=== PATIENT | male | born 1955 | race American Indian/Alaskan Native ===

== ENCOUNTER 2017-01-04 04:56 | Inpatient (IN) | payer OTHER ==
[2017-01-04] MEDS ORDERED: NACL 0.9% 1000 ML 1,000 ML IV ONE (07:16)
--- NOTE | 2017-01-04 07:17 | Emergency Department Report ---
ED General Adult HPI - General Chief complaint: Altered Mental Status Stated complaint: LOW BLOOD PRESSURE/ALTERED MENTAL STATUS Time Seen by Provider: 01/04/17 06:53 Source: family, EMS (ems notes not available at time of chart dictation), old records reviewed Mode of arrival: Stretcher Limitations: Altered Mental Status - History of Present Illness Initial comments: This is a 61-year-old male, who was previously unknown to this provider. His primary care doctor is Dr. Jesus Ewing, and his primary telephone surveyor is at [facility]. His history is provided by his . Patient has a history of atrial fibrillation, currently on systemic anticoagulation, xarelto, history of intracranial hemorrhage, with a SPECIAL INVESTIGATOR shunt, now neurologically impaired, trach dependent, feeding tube dependent. The patient is sent to the ER for weakness, and coughing up blood from his tracheostomy site. His reports that he is dependent on others for activities of daily living. The patient is nonverbal and cannot describe exacerbating or relieving factors. Patient's reports that the patient is more tired, lethargic and weaker than usual. Symptoms do not radiate anywhere. -: Gradual Consistency: constant Improves with: none Worsens with: none Associated Symptoms: confusion, cough, weakness - Related Data Home Medications Medication Instructions Recorded Confirmed Last Taken Acetaminophen [Tylenol Extra 500 mg FEEDTUBE QID PRN 01/04/17 01/04/17 Unknown Strength] Amantadine HCl [Amantadine] 150 mg FEEDTUBE BID 01/04/17 01/04/17 Unknown Aspirin BABY CHEW TAB 81 mg FEEDTUBE DAILY 01/04/17 01/04/17 Unknown Budesonide [Pulmicort] 0.5 mg IH Q12HR 01/04/17 01/04/17 Unknown Cetirizine HCl [All Day Allergy] 10 mg FEEDTUBE DAILY 01/04/17 01/04/17 Unknown Digoxin [Lanoxin] 0.25 mg FEEDTUBE DAILY 01/04/17 01/04/17 Unknown Diltiazem [CarDIZEM] 30 mg FEEDTUBE DAILY 01/04/17 01/04/17 Unknown FLUoxetine [PROzac] 20 mg FEEDTUBE QDAY 01/04/17 01/04/17 Unknown Ferrous Sulfate 7.5 ml FEEDTUBE BID 01/04/17 01/04/17 Unknown Hyoscyamine Sulfate [Hyoscyamine 0.125 mg FEEDTUBE Q4H PRN 01/04/17 01/04/17 Unknown Rapdis 0.125 mg] Insulin Aspart [Novolog Flexpen] 0 unit SQ BID 01/04/17 01/04/17 Unknown Insulin Detemir [Levemir] 5 units SUB-Q QHS 01/04/17 01/04/17 Unknown Ipratropium/Albuterol Sulfate 1 ampul IH Q4HR 01/04/17 01/04/17 Unknown [DUONEB *Not for PRN Use*] LORazepam [Ativan] 1 mg FEEDTUBE BID PRN 01/04/17 01/04/17 Unknown Metoprolol [Lopressor] 25 mg FEEDTUBE BID 01/04/17 01/04/17 Unknown Ondansetron [Zofran Oral Liq] 4 mg FEEDTUBE Q6HR PRN 01/04/17 01/04/17 Unknown Pantoprazole Sodium 40 mg FEEDTUBE DAILY 01/04/17 01/04/17 Unknown Rivaroxaban [Xarelto] 20 mg FEEDTUBE QHS 01/04/17 01/04/17 Unknown guaiFENesin [Guaifenesin] 100 mg FEEDTUBE BID PRN 01/04/17 01/04/17 Unknown traZODone [Desyrel] 25 mg FEEDTUBE QHS 01/04/17 01/04/17 Unknown Allergies Allergy/AdvReac Type Severity Reaction Status Date / Time latex Allergy Unknown Verified 01/04/17 09:05 Penicillins Allergy Unknown Verified 01/04/17 09:05 vancomycin Allergy Unknown Verified 01/04/17 09:05 ED Review of Systems ROS: Stated complaint: LOW BLOOD PRESSURE/ALTERED MENTAL STATUS Other details as noted in HPI Comment: Unobtainable due to pts medical conditions Constitutional: malaise, weakness ED Past Medical Hx - Past Medical History Previous Medical History?: Yes Hx Hypertension: Yes Hx Diabetes: Yes Hx GERD: Yes Hx Psychiatric Treatment: Yes (persistent mood disorder, anxiety) Additional medical history: encephalopathy, parkinson's disease, xenogenic heart valve, endocarditis, pressure ulcer, hyperlipidemia, atrial fib, alcohol abuse, anemia - Surgical History Past Surgical History?: Yes Additional Surgical History: ICH - Social History Smoking Status: Former Smoker Substance Use Type: None - Medications Home Medications: Home Medications Medication Instructions Recorded Confirmed Last Taken Type Acetaminophen [Tylenol Extra 500 mg FEEDTUBE QID PRN 01/04/17 01/04/17 Unknown History Strength] Amantadine HCl [Amantadine] 150 mg FEEDTUBE BID 01/04/17 01/04/17 Unknown History Aspirin BABY CHEW TAB 81 mg FEEDTUBE DAILY 01/04/17 01/04/17 Unknown History Budesonide [Pulmicort] 0.5 mg IH Q12HR 01/04/17 01/04/17 Unknown History Cetirizine HCl [All Day Allergy] 10 mg FEEDTUBE DAILY 01/04/17 01/04/17 Unknown History Digoxin [Lanoxin] 0.25 mg FEEDTUBE DAILY 01/04/17 01/04/17 Unknown History Diltiazem [CarDIZEM] 30 mg FEEDTUBE DAILY 01/04/17 01/04/17 Unknown History FLUoxetine [PROzac] 20 mg FEEDTUBE QDAY 01/04/17 01/04/17 Unknown History Ferrous Sulfate 7.5 ml FEEDTUBE BID 01/04/17 01/04/17 Unknown History Hyoscyamine Sulfate [Hyoscyamine 0.125 mg FEEDTUBE Q4H PRN 01/04/17 01/04/17 Unknown History Rapdis 0.125 mg] Insulin Aspart [Novolog Flexpen] 0 unit SQ BID 01/04/17 01/04/17 Unknown History Insulin Detemir [Levemir] 5 units SUB-Q QHS 01/04/17 01/04/17 Unknown History Ipratropium/Albuterol Sulfate 1 ampul IH Q4HR 01/04/17 01/04/17 Unknown History [DUONEB *Not for PRN Use*] LORazepam [Ativan] 1 mg FEEDTUBE BID PRN 01/04/17 01/04/17 Unknown History Metoprolol [Lopressor] 25 mg FEEDTUBE BID 01/04/17 01/04/17 Unknown History Ondansetron [Zofran Oral Liq] 4 mg FEEDTUBE Q6HR PRN 01/04/17 01/04/17 Unknown History Pantoprazole Sodium 40 mg FEEDTUBE DAILY 01/04/17 01/04/17 Unknown History Rivaroxaban [Xarelto] 20 mg FEEDTUBE QHS 01/04/17 01/04/17 Unknown History guaiFENesin [Guaifenesin] 100 mg FEEDTUBE BID PRN 01/04/17 01/04/17 Unknown History traZODone [Desyrel] 25 mg FEEDTUBE QHS 01/04/17 01/04/17 Unknown History ED Physical Exam - General Limitations: Altered Mental Status General appearance: in no apparent distress - Head Head exam: Present: atraumatic, normocephalic - Eye Eye exam: Present: normal appearance, PERRL - ENT ENT exam: Present: mucous membranes dry, other (there is a tracheostomy stoma noted with a tracheostomy tube. There is dried blood around the tube. The stoma itself has no redness, pus or streaking.) - Neck Neck exam: Present: normal inspection - Respiratory Respiratory exam: Present: rhonchi. Absent: respiratory distress - Cardiovascular Cardiovascular Exam: Present: regular rate, normal rhythm, irregular rhythm, systolic murmur. Absent: normal heart sounds, diastolic murmur, rubs, gallop - GI/Abdominal GI/Abdominal exam: Present: soft, normal bowel sounds, other (there is a feeding tube noted in the left lower quadrant). Absent: distended, tenderness, guarding, rebound, rigid, pulsatile mass - Rectal Rectal exam: Present: normal rectal tone, heme (+) stool, bloody stool. Absent : normal inspection (there is stage II skin ulcer and skin breakdown) - Extremities Exam Extremities exam: Present: normal inspection, pedal edema - Back Exam Back exam: Present: normal inspection. Absent: tenderness, CVA tenderness (R), paraspinal tenderness - Neurological Exam Neurological exam: Present: altered, other (she is sleeping. Occasionally he moves his arms. The patient is nonverbal. This is the patient's mental status baseline, the patient's .) - Psychiatric Psychiatric exam: Present: other (the patient is nonverbal at baseline) - Skin Skin exam: Present: warm, dry, intact, normal color. Absent: rash ED Course Vital Signs 01/04/17 01/04/17 01/04/17 05:06 05:15 05:30 Temperature 99.2 F Pulse Rate 94 H 85 Respiratory 21 21 17 Rate Blood Pressure 113/77 108/61 Blood Pressure 113/78 [Left] O2 Sat by Pulse 100 100 Oximetry 01/04/17 01/04/17 01/04/17 05:45 05:54 06:01 Temperature Pulse Rate 91 H 89 Respiratory 26 H 20 19 Rate Blood Pressure 113/77 111/60 Blood Pressure [Left] O2 Sat by Pulse 100 100 96 Oximetry 01/04/17 01/04/17 01/04/17 06:15 06:28 06:31 Temperature 99.5 F Pulse Rate 86 85 Respiratory 26 H 17 Rate Blood Pressure 108/51 86/51 Blood Pressure [Left] O2 Sat by Pulse 100 100 Oximetry 01/04/17 01/04/17 01/04/17 06:45 07:00 07:15 Temperature Pulse Rate 70 83 89 Respiratory 21 20 29 H Rate Blood Pressure 101/58 99/56 86/51 Blood Pressure [Left] O2 Sat by Pulse 100 100 100 Oximetry 01/04/17 01/04/17 01/04/17 07:30 07:45 08:00 Temperature Pulse Rate 88 85 97 H Respiratory 36 H 29 H 43 H Rate Blood Pressure 104/66 88/56 87/57 Blood Pressure [Left] O2 Sat by Pulse 100 100 99 Oximetry 01/04/17 01/04/17 01/04/17 08:15 08:55 09:01 Temperature Pulse Rate 108 H 103 H Respiratory 39 H 18 Rate Blood Pressure 116/83 99/66 99/66 Blood Pressure [Left] O2 Sat by Pulse 99 100 100 Oximetry 01/04/17 01/04/17 01/04/17 09:15 09:30 09:45 Temperature Pulse Rate 85 99 H 96 H Respiratory 16 17 17 Rate Blood Pressure 104/79 100/66 116/83 Blood Pressure [Left] O2 Sat by Pulse 100 99 100 Oximetry 01/04/17 01/04/17 01/04/17 10:00 11:07 11:11 Temperature Pulse Rate 92 H 92 H 105 H Respiratory 15 17 21 Rate Blood Pressure 102/58 Blood Pressure [Left] O2 Sat by Pulse 100 100 100 Oximetry 01/04/17 01/04/17 01/04/17 11:21 11:30 12:12 Temperature 99.4 F Pulse Rate 88 107 H 48 L Respiratory 21 24 20 Rate Blood Pressure 111/58 111/58 97/55 Blood Pressure [Left] O2 Sat by Pulse 100 99 96 Oximetry 01/04/17 14:00 Temperature 98.5 F Pulse Rate 48 L Respiratory 20 Rate Blood Pressure 70/49 Blood Pressure [Left] O2 Sat by Pulse 99 Oximetry - Reevaluation(s) Reevaluation #1: 01/04/17 09:08 The tracheostomy was cleaned and replaced by respiratory therapy, blood noted from tracheostomy is most likely secondary the tracheostomy not being cleaned and maintained as often as it should be. Reevaluation #2: 01/04/17 10:[address] scan of the brain demonstrates chronic findings. No acute findings noted. No blood is noted. CT scan of the chest is pending. Reevaluation #3: 01/04/17 10:33 CT scan of the chest suggest pneumonia. Nonspecific renal findings also appreciated. I will defer to primary care medical team to further evaluate and follow this up. ED Medical Decision Making - Lab Data Result diagrams: 01/04/17 12:01 01/04/17 07:31 Vital Signs 01/04/17 01/04/17 01/04/17 05:15 05:54 06:28 Temperature 99.2 F 99.5 F Pulse Rate 87 Respiratory 20 20 Rate Blood Pressure 113/78 Blood Pressure 113/78 [Left] O2 Sat by Pulse 100 100 Oximetry Lab Results 01/04/17 01/04/17 01/04/17 Range/Units 07:03 07:21 07:21 WBC 16.4 H (4.5-11.0) K/mm3 RBC 2.48 L (3.65-5.03) M/mm3 Hgb 6.2 L (11.8-15.2) gm/dl Hct 20.1 L (35.5-45.6) % MCV 81 L (84-94) fl MCH 25 L (28-32) pg MCHC 31 L (32-34) % RDW 19.7 H (13.2-15.2) % Plt Count 251 (140-440) K/mm3 PT (12.2-14.9) Sec. INR (0.87-1.13) APTT (24.2-36.6) Sec. Sodium (137-145) mmol/L Potassium (3.6-5.0) mmol/L Chloride (98-107) mmol/L Carbon Dioxide (22-30) mmol/L Anion Gap mmol/L BUN (9-20) mg/dL Creatinine (0.8-1.5) mg/dL Estimated GFR ml/min BUN/Creatinine Ratio % Glucose (75-100) mg/dL POC Glucose 210 H (70-105) Lactic Acid 1.30 (0.7-2.0) mmol/L Calcium (8.4-10.2) mg/dL Magnesium (1.7-2.3) mg/dL Total Creatine Kinase (55-170) units/L Urine Color (Yellow) Urine Turbidity (Clear) Urine pH (5.0-7.0) Ur Specific [place] (1.003-1.030) Urine Protein (Negative) mg/dL Urine Glucose (UA) (Negative) mg/dL Urine Ketones (Negative) mg/dL Urine Blood (Negative) Urine Nitrite (Negative) Ur Reducing Substances Urine Bilirubin (Negative) Urine Ictotest Urine Urobilinogen (<2.0) mg/dL Ur Leukocyte Esterase (Negative) Urine WBC (Auto) (0.0-6.0) /HPF Urine RBC (Auto) (0.0-6.0) /HPF Urine Bacteria (Auto) (Negative) /HPF Urine WBC Clumps /HPF Urine Mucus /HPF Urine Yeast (Budding) /HPF 01/04/17 01/04/17 01/04/17 Range/Units 07:31 07:31 Unknown WBC (4.5-11.0) K/mm3 RBC (3.65-5.03) M/mm3 Hgb (11.8-15.2) gm/dl Hct (35.5-45.6) % MCV (84-94) fl MCH (28-32) pg MCHC (32-34) % RDW (13.2-15.2) % Plt Count (140-440) K/mm3 PT 18.1 H (12.2-14.9) Sec. INR 1.42 H (0.87-1.13) APTT 59.9 H (24.2-36.6) Sec. Sodium 148 H (137-145) mmol/L Potassium 3.7 (3.6-5.0) mmol/L Chloride 101.7 (98-107) mmol/L Carbon Dioxide 33 H (22-30) mmol/L Anion Gap 17 mmol/L BUN 80 H (9-20) mg/dL Creatinine 1.2 (0.8-1.5) mg/dL Estimated GFR > 60 ml/min BUN/Creatinine Ratio 67 % Glucose 182 H (75-100) mg/dL POC Glucose (70-105) Lactic Acid (0.7-2.0) mmol/L Calcium 8.8 (8.4-10.2) mg/dL Magnesium 2.60 H (1.7-2.3) mg/dL Total Creatine Kinase 26 L (55-170) units/L Urine Color Yellow (Yellow) Urine Turbidity Clear (Clear) Urine pH 5.0 (5.0-7.0) Ur Specific [place] 1.014 (1.003-1.030) Urine Protein 30 mg/dl (Negative) mg/dL Urine Glucose (UA) Neg (Negative) mg/dL Urine Ketones Neg (Negative) mg/dL Urine Blood Sm (Negative) Urine Nitrite Neg (Negative) Ur Reducing Substances Not Reportable Urine Bilirubin Neg (Negative) Urine Ictotest Not Reportable Urine Urobilinogen < 2.0 (<2.0) mg/dL Ur Leukocyte Esterase Lg (Negative) Urine WBC (Auto) > 182.0 H (0.0-6.0) /HPF Urine RBC (Auto) 58.0 (0.0-6.0) /HPF Urine Bacteria (Auto) 4+ (Negative) /HPF Urine WBC Clumps 3+ /HPF Urine Mucus Few /HPF Urine Yeast (Budding) 1+ /HPF - EKG Data -: EKG Interpreted by Me - Radiology Data Radiology results: image reviewed interpreted by me: X-ray the chest demonstrates chronic findings, median sternotomy, chronic lung findings, no acute disease, tracheostomy in appropriate position - Medical Decision Making Differential diagnosis, including but not limited to: GI bleed, pneumonia, urinary tract infection, tracheostomy replacement Assessment and plan: 61-year-old male sent to the ER for hypotension and more blood coming from his tracheostomy site than normal. Hemoglobin and hematocrit are 6/20, blood urea nitrogen is 80, guaiac positive, suggestive of upper GI bleed. Blood pressure in the low 100s/upper 90s. Patient will be started on fluids, Protonix. He will be given a packed red blood cell transfusion after discussion with his . Leukocytosis is noted, with intermittent heart rate over 90, suggestive of systemic inflammatory response syndrome. He will be loaded with Levaquin and IV fluids. Urine cultures have been sent. Case discussed with the Hospital physician, Dr. Reyes, who accepts the patient to the medical service. Case discussed with gastroenterology, Dr. Carlos A Corral who will see in consultation. The patient's was updated on all of the aforementioned, and she verbalized agreement and understanding. Critical care attestation.: If time is entered above; I have spent that time in minutes in the direct care of this critically ill patient, excluding procedure time. ED Disposition Clinical Impression: GI bleed, UTI (urinary tract infection) Disposition: 09 OP ADMIT IP TO THIS HOSP Is pt being admited?: Yes Condition: Fair
[2017-01-04 07:51] LABS: Hematocrit 20.1 % (35.5-45.6); Hemoglobin 6.2 gm/dl (11.8-15.2); Mean Corpuscular HGB Conc 31 % (32-34); Mean Corpuscular Volume 81 fl (84-94); Platelet Count 251 K/mm3 (140-440); Red Blood Count 2.48 M/mm3 (3.65-5.03); Red Cell Distribution Width 19.7 % (13.2-15.2); White Blood Count 16.4 K/mm3 (4.5-11.0)
[2017-01-04 08:01] LABS: Bacteria,Urine 4+ /HPF (Negative)
[2017-01-04 08:09] LABS: Anion Gap 17 mmol/L; BUN/Creatinine Ratio 67; Blood Urea Nitrogen 80 mg/dL (9-20); Calcium 8.8 mg/dL (8.4-10.2); Carbon Dioxide 33 mmol/L (22-30); Chloride 101.7 mmol/L (98-107); Creatine Kinase 26 units/L (55-170); Glucose 182 mg/dL (75-100); Potassium 3.7 mmol/L (3.6-5.0); Sodium 148 mmol/L (137-145)
[2017-01-04 08:10] LABS: Mean Corpuscular Hemoglobin 25 pg (28-32)
[2017-01-04 08:11] LABS: WBC,Urine > 182.0 /HPF (0.0-6.0)
[2017-01-04 08:24] LABS: Bilirubin,Urine NEG (Negative); Blood,Urine SM (Negative); Ketones,Urine NEG (Negative); Leukocyte Esterase,Urine LG (Negative); Mucus,Urine FEW /HPF; Nitrite,Urine NEG (Negative); Urobilinogen,Urine < 2.0 mg/dL (<2.0)
[2017-01-04 08:50] LABS: INR 1.42 (0.87-1.13)
[2017-01-04 08:52] LABS: Partial Thromboplastin Time 59.9 Sec. (24.2-36.6)
[2017-01-04] MEDS ORDERED: LEVAQUIN 750MG/150ML 750 MG/150 ML BAG IV ONE (09:00)
[2017-01-04] MEDS ORDERED: NACL 0.9% 500 ML 500 ML IV ONE (09:00)
[2017-01-04] MEDS ORDERED: PROTONIX IV ONE (09:00)
--- NOTE | 2017-01-04 09:15 | XRay Report ---
Portable chest: Hemoptysis. There is a prosthetic valve which appears to be aortic by its position. The cardiac contour is borderline in size. There is no vascular congestion. Mild increased broncho-interstitial markings are identified in both lungs with no focal findings. There is a well-positioned tracheostomy tube. A right CORPORATE DIRECTOR OF HUMAN RESOURCES shunt line crosses the chest. I have no prior studies for comparison. Impression: The pulmonary findings are consistent with interstitial lung disease and may be chronic but the chronicity is difficult to assess without prior exams.
--- NOTE | 2017-01-04 10:02 | Cat Scan Report ---
FINAL REPORT PROCEDURE: CT HEAD/BRAIN WO CON TECHNIQUE: Computerized tomography of the head was performed without contrast material. HISTORY: ams COMPARISON: No prior studies are available for comparison. FINDINGS: Occipital/suboccipital craniectomy is noted. Cerebellar encephalomalacia with or without associated low-density edema is present. Fourth ventricular prominence without definite obstructive lesion in the axial plane is seen. Right frontal intraventricular shunt catheter is in place catheter tip in the region of the left roof of the 3rd ventricle. There is no intra or extra-axial hemorrhage. There is no CT evident acute infarction. There is no mass effect or shift of midline structures. Mild cerebral volume loss is noted. Visualized portions of the paranasal sinuses, mastoid air cells and middle ears are clear. IMPRESSION: Suboccipital/occipital craniectomy. Encephalomalacia of the cerebellum with or without associated low-density edema. Prominence of the 4th ventricle possibly a long-standing finding without evident obstructive lesion in the axial plane. Right frontal shunt catheter in place with unremarkable remainder of the ventricular system. Comparison with prior studies would be of benefit to evaluate for interval change.
--- NOTE | 2017-01-04 10:30 | Cat Scan Report ---
FINAL REPORT PROCEDURE: CT CHEST WO CON TECHNIQUE: Axial sections and coronal and sagittal reformatted images were viewed through the chest. HISTORY: hemoptysis COMPARISON: None FINDINGS: Percutaneous gastrostomy is noted as well as tracheostomy tube and prior median sternotomy. Lack of IV contrast limits evaluation of the soft tissues. There is however pretracheal and right paratracheal lymphadenopathy 1.5 and 1.2 centimeters. There is no gross hilar lymphadenopathy. The heart is enlarged. There is no pericardial effusion. There is no pleural effusion. Mild degenerative changes of the spine without acute osseous abnormality is seen. Juxta-articular Schmorl's nodes at T12/L1 are present. Partially included on the examination is swelling of the left kidney and mild left hydronephrosis and proximal hydroureter. Pulmonary emphysema is present. Bilateral scattered airspace disease is seen of the mid and lower lung zones. There is no pulmonary parenchymal mass IMPRESSION: Partially included on the exam left renal swelling and suspected mild hydronephrosis and proximal hydroureter. Correlate clinically and consider renal protocol CT of the abdomen and pelvis for further evaluation. Bilateral infiltrates superimposed upon pulmonary emphysema. Mild middle mediastinal lymphadenopathy possibly reactive which may be followed for size in 3 months. Prior median sternotomy. Cardiomegaly. Gastrostomy tube and tracheostomy tube in place. Mild degenerative changes of the spine. Juxta-articular Schmorl's nodes at T12/L1.
--- NOTE | 2017-01-04 11:29 | History and Physical Report ---
History of Present Illness Date of examination: 01/04/17 Date of admission: 01/04/17 10:33 Chief complaint: Low hemoglobin and hematocrit History of present illness: 61 year old -Armenian male with past medical history significant for intracerebral hemorrhage, s/p bioprostetic valves, A fib, A. fib on anticoagulation, hypertension, prediabetes, on PEG tube feeding was [facility] EMS [facility] because of complaints of his hemoglobin is low. His emergency department H&H was 07/27. Patient is noncommunicative and history is obtained from the . Patient has history of anemia and was admitted to [facility] a month ago and he was transfused with packed RBCs and GI evaluated him and recommended no colonoscopy at that time. didn't know if you have any rectal bleeding. Patient is on xarelto despite the patient has ICH and history of biopprostetic valves. Patient is on trach, and non communicative at baseline. Patient was initiated on warfarin and later change to Xarelto after the patient developed a hematoma. I couldn't obtained review of systems because of patient is non communicative. Past History Past Medical History: atrial fib, anemia, diabetes, hypertension, stroke (ICH) Past Surgical History: Other (IC shunt,valve replacement, metal pins in the thigh) Social history: full code. denies: smoking, alcohol abuse, prescription drug abuse, IV drug use Family history: no significant family history Medications and Allergies Allergies Allergy/AdvReac Type Severity Reaction Status Date / Time latex Allergy Unknown Verified 01/04/17 09:05 Penicillins Allergy Unknown Verified 01/04/17 09:05 vancomycin Allergy Unknown Verified 01/04/17 09:05 Home Medications Medication Instructions Recorded Confirmed Last Taken Type Acetaminophen [Tylenol Extra 500 mg FEEDTUBE QID PRN 01/04/17 01/04/17 Unknown History Strength] Amantadine HCl [Amantadine] 150 mg FEEDTUBE BID 01/04/17 01/04/17 Unknown History Aspirin BABY CHEW TAB 81 mg FEEDTUBE DAILY 01/04/17 01/04/17 Unknown History Budesonide [Pulmicort] 0.5 mg IH Q12HR 01/04/17 01/04/17 Unknown History Cetirizine HCl [All Day Allergy] 10 mg FEEDTUBE DAILY 01/04/17 01/04/17 Unknown History Digoxin [Lanoxin] 0.25 mg FEEDTUBE DAILY 01/04/17 01/04/17 Unknown History Diltiazem [CarDIZEM] 30 mg FEEDTUBE DAILY 01/04/17 01/04/17 Unknown History FLUoxetine [PROzac] 20 mg FEEDTUBE QDAY 01/04/17 01/04/17 Unknown History Ferrous Sulfate 7.5 ml FEEDTUBE BID 01/04/17 01/04/17 Unknown History Hyoscyamine Sulfate [Hyoscyamine 0.125 mg FEEDTUBE Q4H PRN 01/04/17 01/04/17 Unknown History Rapdis 0.125 mg] Insulin Aspart [Novolog Flexpen] 0 unit SQ BID 01/04/17 01/04/17 Unknown History Insulin Detemir [Levemir] 5 units SUB-Q QHS 01/04/17 01/04/17 Unknown History Ipratropium/Albuterol Sulfate 1 ampul IH Q4HR 01/04/17 01/04/17 Unknown History [DUONEB *Not for PRN Use*] LORazepam [Ativan] 1 mg FEEDTUBE BID PRN 01/04/17 01/04/17 Unknown History Metoprolol [Lopressor] 25 mg FEEDTUBE BID 01/04/17 01/04/17 Unknown History Ondansetron [Zofran Oral Liq] 4 mg FEEDTUBE Q6HR PRN 01/04/17 01/04/17 Unknown History Pantoprazole Sodium 40 mg FEEDTUBE DAILY 01/04/17 01/04/17 Unknown History Rivaroxaban [Xarelto] 20 mg FEEDTUBE QHS 01/04/17 01/04/17 Unknown History guaiFENesin [Guaifenesin] 100 mg FEEDTUBE BID PRN 01/04/17 01/04/17 Unknown History traZODone [Desyrel] 25 mg FEEDTUBE QHS 01/04/17 01/04/17 Unknown History Active Meds: Active Medications Levofloxacin/Dextrose (Levaquin 750mg/150ml) 750 mg in 150 mls @ 100 mls/hr IV Q24HR GARO PRN Reason: Protocol Sodium Chloride (Nacl 0.9% 1000 Ml) 1,000 mls @ 125 mls/hr IV DIRECT G[facility]O Review of Systems ROS unobtainable: due to mental status (Patient is non communicative at baseline.) Exam - Physical Exam Narrative exam: Patient is on PEG and trach. The patient appeared well nourished and normally developed. Vital signs as documented. Head exam is unremarkable. No scleral icterus . Neck is without jugular venous distension, thyromegaly, or carotid bruits. Lungs are clear to auscultation. Cardiac exam reveals regular rate and Rhythm. First and second heart sounds normal. No murmurs, rubs or gallops. Abdominal exam reveals in place. Extremities are nonedematous and both femoral and pedal pulses are normal. 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 - Constitutional Vitals: Temp Pulse Resp BP Pulse Ox 99.5 F 92 H 17 102/58 100 01/04/17 06:28 01/04/17 11:07 01/04/17 11:07 01/04/17 10:00 01/04/17 11:07 Results - Labs CBC & Chem 7: 01/04/17 12:01 01/04/17 07:31 Labs: Laboratory Last Values WBC 16.4 K/mm3 (4.5-11.0) H 01/04/17 07:21 RBC 2.48 M/mm3 (3.65-5.03) L 01/04/17 07:21 Hgb 6.2 gm/dl (11.8-15.2) L 01/04/17 07:21 Hct 20.1 % (35.5-45.6) L 01/04/17 07:21 MCV 81 fl (84-94) L 01/04/17 07:21 MCH 25 pg (28-32) L 01/04/17 07:21 MCHC 31 % (32-34) L 01/04/17 07:21 RDW 19.7 % (13.2-15.2) H 01/04/17 07:21 Plt Count 251 K/mm3 (140-440) 01/04/17 07:21 PT 18.1 Sec. (12.2-14.9) H 01/04/17 07:31 INR 1.42 (0.87-1.13) H 01/04/17 07:31 APTT 59.9 Sec. (24.2-36.6) H 01/04/17 07:31 Sodium 148 mmol/L (137-145) H 01/04/17 07:31 Potassium 3.7 mmol/L (3.6-5.0) 01/04/17 07:31 Chloride 101.7 mmol/L (98-107) 01/04/17 07:31 Carbon Dioxide 33 mmol/L (22-30) H 01/04/17 07:31 Anion Gap 17 mmol/L 01/04/17 07:31 BUN 80 mg/dL (9-20) H 01/04/17 07:31 Creatinine 1.2 mg/dL (0.8-1.5) 01/04/17 07:31 Estimated GFR > 60 ml/min 01/04/17 07:31 BUN/Creatinine Ratio 67 % 01/04/17 07:31 Glucose 182 mg/dL (75-100) H 01/04/17 07:31 POC Glucose 210 (70-105) H 01/04/17 07:03 Lactic Acid 1.30 mmol/L (0.7-2.0) 01/04/17 07:21 Calcium 8.8 mg/dL (8.4-10.2) 01/04/17 07:31 Magnesium 2.60 mg/dL (1.7-2.3) H 01/04/17 07:31 Total Creatine Kinase 26 units/L (55-170) L 01/04/17 07:31 Urine Color Yellow (Yellow) 01/04/17 Unknown Urine Turbidity Clear (Clear) 01/04/17 Unknown Urine pH 5.0 (5.0-7.0) 01/04/17 Unknown Ur Specific [place] 1.014 (1.003-1.030) 01/04/17 Unknown Urine Protein 30 mg/dl mg/dL (Negative) 01/04/17 Unknown Urine Glucose (UA) Neg mg/dL (Negative) 01/04/17 Unknown Urine Ketones Neg mg/dL (Negative) 01/04/17 Unknown Urine Blood Sm (Negative) 01/04/17 Unknown Urine Nitrite Neg (Negative) 01/04/17 Unknown Ur Reducing Substances Not Reportable 01/04/17 Unknown Urine Bilirubin Neg (Negative) 01/04/17 Unknown Urine Ictotest Not Reportable 01/04/17 Unknown Urine Urobilinogen < 2.0 mg/dL (<2.0) 01/04/17 Unknown Ur Leukocyte Esterase Lg (Negative) 01/04/17 Unknown Urine WBC (Auto) > 182.0 /HPF (0.0-6.0) H 01/04/17 Unknown Urine RBC (Auto) 58.0 /HPF (0.0-6.0) 01/04/17 Unknown Urine Bacteria (Auto) 4+ /HPF (Negative) 01/04/17 Unknown Urine WBC Clumps 3+ /HPF 01/04/17 Unknown Urine Mucus Few /HPF 01/04/17 Unknown Urine Yeast (Budding) 1+ /HPF 01/04/17 Unknown Blood Type B POSITIVE 01/04/17 09:03 Antibody Screen Negative 01/04/17 09:03 Crossmatch See Detail 01/04/17 09:03 Assessment and Plan Assessment and plan: Severe anemia -Patient hemoglobin and hematocrit this 07/30 -Transfused 2 units of blood, will check H&H every 6 hours - We'll continue to transfuse if it is less than 7 - GI consulted History of ICH - CT head no acute changes - Neurology consulted A. fib, status post 2 bioprosthetic valves - held xarelto - Cardiology consulted Sacral decubitus ulcer - Wound care consulted Status post trach, respiratory distress - Duonebs, oxygen support - Pulmonary consulted Resume appropriate home medications DVT prophylaxis - Mechanical, because of bleeding Disposition - Admit to medical floor Advance Directives: Yes VTE prophylaxis?: Mechanical Reason for no VTE Prophylaxis: Bleeding Plan of care discussed with patient/family: Yes
[2017-01-04] MEDS ORDERED: ROBITUSSIN FEEDTUBE PRN (11:30)
[2017-01-04] MEDS ORDERED: NON-FORMULARY (Hyoscyamine Sulfate [Hyoscyamine Rapdis 0.125 Mg] 0.125 MG) FEEDTUBE PRN (11:30)
[2017-01-04] MEDS ORDERED: D50W (25GM) Syringe IV PRN (11:35)
[2017-01-04] MEDS ORDERED: PANCREAZE DR 10,500 UNIT FEEDTUBE PRN (11:41)
[2017-01-04] MEDS ORDERED: SODIUM BICARBONATE FEEDTUBE PRN (11:41)
[2017-01-04] MEDS ORDERED: SIMPLE SYRUP FEEDTUBE PRN ×2 (11:41)
[2017-01-04] MEDS ORDERED: LEVSIN SL SL PRN (12:14)
[2017-01-04 12:44] LABS: Hemoglobin 6.1 gm/dl (11.8-15.2)
[2017-01-04 12:56] LABS: Hematocrit 19.4 % (35.5-45.6)
--- NOTE | 2017-01-04 12:59 | Consultation ---
History of Present Illness Consult reason: atrial fibrillation History of present illness: 61-year-old man with multiple medical problems. He has a history of atrial fibrillation for which he was anticoagulated with warfarin. The patient is nonverbal and has a tracheostomy. Family member indicates that warfarin was stopped and he was placed on Xarelto after he developed a hematoma in his thigh. The patient also has suffered an intracranial hemorrhage and underwent a HADOOP INFRASTRUCTURE ARCHITECT neurosurgical shunt procedure at [place] in April of this year. The family member states that the neurosurgical team was aware of his anticoagulation. The family states that the issue of continuing the anticoagulation has not been formerly discussed with them. He also has a history of 2 bioprosthetic valve replacement procedures but the family member does not know which valves were operated upon. He is brought to the hospital now because of increasing weakness , eating from the tracheostomy site, and profound anemia. He is feeding tube dependent. The blood pressure is 100/60 the hemoglobin and hematocrit are 6 and 19 Past History Past Medical History: atrial fib, stroke, other (her cranial hemorrhage) Past Surgical History: valve replacement, Other (tracheostomy and HADOOP INFRASTRUCTURE ARCHITECT shunt) Medications and Allergies Allergies Allergy/AdvReac Type Severity Reaction Status Date / Time latex Allergy Unknown Verified 01/04/17 09:05 Penicillins Allergy Unknown Verified 01/04/17 09:05 vancomycin Allergy Unknown Verified 01/04/17 09:05 Home Medications Medication Instructions Recorded Confirmed Last Taken Type Acetaminophen [Tylenol Extra 500 mg FEEDTUBE QID PRN 01/04/17 01/04/17 Unknown History Strength] Amantadine HCl [Amantadine] 150 mg FEEDTUBE BID 01/04/17 01/04/17 Unknown History Aspirin BABY CHEW TAB 81 mg FEEDTUBE DAILY 01/04/17 01/04/17 Unknown History Budesonide [Pulmicort] 0.5 mg IH Q12HR 01/04/17 01/04/17 Unknown History Cetirizine HCl [All Day Allergy] 10 mg FEEDTUBE DAILY 01/04/17 01/04/17 Unknown History Digoxin [Lanoxin] 0.25 mg FEEDTUBE DAILY 01/04/17 01/04/17 Unknown History Diltiazem [CarDIZEM] 30 mg FEEDTUBE DAILY 01/04/17 01/04/17 Unknown History FLUoxetine [PROzac] 20 mg FEEDTUBE QDAY 01/04/17 01/04/17 Unknown History Ferrous Sulfate 7.5 ml FEEDTUBE BID 01/04/17 01/04/17 Unknown History Hyoscyamine Sulfate [Hyoscyamine 0.125 mg FEEDTUBE Q4H PRN 01/04/17 01/04/17 Unknown History Rapdis 0.125 mg] Insulin Aspart [Novolog Flexpen] 0 unit SQ BID 01/04/17 01/04/17 Unknown History Insulin Detemir [Levemir] 5 units SUB-Q QHS 01/04/17 01/04/17 Unknown History Ipratropium/Albuterol Sulfate 1 ampul IH Q4HR 01/04/17 01/04/17 Unknown History [DUONEB *Not for PRN Use*] LORazepam [Ativan] 1 mg FEEDTUBE BID PRN 01/04/17 01/04/17 Unknown History Metoprolol [Lopressor] 25 mg FEEDTUBE BID 01/04/17 01/04/17 Unknown History Ondansetron [Zofran Oral Liq] 4 mg FEEDTUBE Q6HR PRN 01/04/17 01/04/17 Unknown History Pantoprazole Sodium 40 mg FEEDTUBE DAILY 01/04/17 01/04/17 Unknown History Rivaroxaban [Xarelto] 20 mg FEEDTUBE QHS 01/04/17 01/04/17 Unknown History guaiFENesin [Guaifenesin] 100 mg FEEDTUBE BID PRN 01/04/17 01/04/17 Unknown History traZODone [Desyrel] 25 mg FEEDTUBE QHS 01/04/17 01/04/17 Unknown History Active Meds: Active Medications Albuterol/Ipratropium (Duoneb *Not For Prn Use*) 1 ampul IH Q4HR G[facility]O Amantadine HCl (Symmetrel) 150 mg FEEDTUBE BID [facility] Lipase/Protease/Amylase (Pancreaze Dr 10,500 Unit) 1 each FEEDTUBE PRN PRN PRN Reason: For Clogged Feeding Tube Budesonide (Pulmicort) 0.5 mg IH Q12HR GARO Dextrose (D50w (25gm) Syringe) 50 ml IV PRN PRN PRN Reason: Hypoglycemia Digoxin (Lanoxin) 0.25 mg FEEDTUBE DAILY [facility] Diltiazem HCl (Cardizem) 30 mg FEEDTUBE DAILY [facility] Ferrous Sulfate (Ferrous Sulfate) 450 mg PO QDAY [facility] Fluoxetine HCl (Prozac) 20 mg FEEDTUBE QDAY [facility] Guaifenesin (Robitussin) 100 mg FEEDTUBE BID PRN PRN Reason: Cough Hyoscyamine (Levsin Sl) 0.125 mg SL Q4H PRN PRN Reason: Spasms Levofloxacin/Dextrose (Levaquin 750mg/150ml) 750 mg in 150 mls @ 100 mls/hr IV Q24HR G[facility]O PRN Reason: Protocol Sodium Chloride (Nacl 0.9% 1000 Ml) 1,000 mls @ 125 mls/hr IV DIRECT [facility] Influenza Virus Vaccine Quadrival (Fluarix Quad [id number] Mos+) 0.5 ml IM .ONCE ONE Stop: 01/05/17 12:01 Insulin Aspart (Novolog) 0 units SUB-Q ACHS [facility] PRN Reason: Protocol Lorazepam (Ativan) 1 mg FEEDTUBE BID PRN PRN Reason: Agitation Metoprolol Tartrate (Lopressor) 25 mg FEEDTUBE BID [facility] Pantoprazole Sodium (Protonix) 40 mg PO DAILY [facility] Simple Syrup (Simple Syrup) 15 ml FEEDTUBE PRN PRN PRN Reason: Hypoglycemia Simple Syrup (Simple Syrup) 30 ml FEEDTUBE PRN PRN PRN Reason: Hypoglycemia Sodium Bicarbonate (Sodium Bicarbonate) 325 mg FEEDTUBE PRN PRN PRN Reason: For Clogged Feeding Tube Trazodone HCl (Desyrel) 25 mg PO QHS [facility] Review of Systems ROS unobtainable: due to mental status Physical Examination Vital Signs Resp 21 01/04/17 05:06 General appearance: cachectic HEENT: Positive: Normocephaly Neck: Positive: neck supple, Carotid Upstroke. Negative: JVD/HJR, Bruit (2+) Cardiac: Positive: irregularly irregular. Negative: S3, Audible Murmur Lungs: Positive: Decreased Breath Sounds Neuro: Positive: Other (nonverbal apparent tremulousness of upper extremities) Abdomen: Positive: Soft. Negative: Tender Skin: Negative: Rash Musculoskeletal: other (no joint swelling) Extremities: Absent: edema (upper extremities pulses intact pedal pulses diminished) Results 01/05/17 04:46 01/05/17 04:46 Coagulation 01/04/17 Range/Units 07:31 PT 18.1 H (12.2-14.9) Sec. INR 1.42 H (0.87-1.13) APTT 59.9 H (24.2-36.6) Sec. CBC 01/04/17 Range/Units 07:21 WBC 16.4 H (4.5-11.0) K/mm3 RBC 2.48 L (3.65-5.03) M/mm3 Hgb 6.2 L (11.8-15.2) gm/dl Hct 20.1 L (35.5-45.6) % Plt Count 251 (140-440) K/mm3 Comprehensive Metabolic Panel 01/04/17 Range/Units 07:31 Sodium 148 H (137-145) mmol/L Potassium 3.7 (3.6-5.0) mmol/L Chloride 101.7 (98-107) mmol/L Carbon Dioxide 33 H (22-30) mmol/L BUN 80 H (9-20) mg/dL Creatinine 1.2 (0.8-1.5) mg/dL Glucose 182 H (75-100) mg/dL Calcium 8.8 (8.4-10.2) mg/dL EKG interpretations - Telemetry EKG Rhythm: Atrial Fibrillation Assessment and Plan Multiple medical problems chronic afib with moderate vent resp profound anemia bleeding from trach site s/p bioprosthetic valve replacement s/p intracranial bleed. s/p vp customer service shunt rec dc xarelto transfuse neurol consult. ?resume anticoag once bleeding/anemia addressed in view of hx of ich echocardiogram when otherwise stable ct of chest and head have been performed thanks, will follow
[2017-01-04] MEDS: NACL 0.9% 1000 ML 1,000 ML IV SCH (13:25)
[2017-01-04] MEDS: DUONEB *Not for PRN Use IH SCH ×3 (13:51→20:33)
--- NOTE | 2017-01-04 14:07 | Consultation ---
INDICATION: Anemia. HISTORY OF PRESENT ILLNESS: The patient is a 61-year-old black male who had been seen [facility] in the past. The patient has a history of AFib on anticoagulation, intracranial hemorrhage with a ELECTRICAL EQUIPMENT ASSEMBLER shunt, and is neurologically impaired, status post trach and feeding tube. The patient has had upper GI bleed with esophagitis in the past. Old records are not available at this time. The patient presented to the Emergency Room for weakness and coughing up blood in the sputum. The patient subsequently came to the Emergency Room. In the Emergency Room, the patient was noted to be anemic with reported dark stools. GI is consulted in management. No reported hematemesis. Denies any other specific GI problems or complaints. PAST MEDICAL HISTORY: 1. AFib, on Xarelto. 2. Intracranial bleed, status post ELECTRICAL EQUIPMENT ASSEMBLER shunt. 3. Trach and feeding tube dependent. MEDICATIONS: See chart. ALLERGIES: No known drug allergies. SOCIAL HISTORY: Denies alcohol, tobacco, or drug abuse. FAMILY HISTORY: Negative for colon cancer. REVIEW OF SYSTEMS: GENERAL: Reports mild weakness. HEENT: No visual complaints or tinnitus. PULMONARY: No shortness of breath, cough, no chest pain. GASTROINTESTINAL: Reports dark stools. All points of 13-point review of systems are otherwise negative. PHYSICAL EXAMINATION: VITAL SIGNS: Temperature of 99.4, pulse 100, respirations 20, blood pressure 118/58. GENERAL: Fairly nourished black male, in no acute distress. HEENT: Pupils are equal, round, and reactive. Trach noted and intact. PULMONARY: Rhonchi CARDIOVASCULAR: Regular rate and rhythm. Normal S1-S2. ABDOMEN: Positive bowel sounds, soft. SKIN: No obvious rashes. LABORATORY DATA: Pertinent for white count of 16.4, hemoglobin and hematocrit of 6.1 and 19.4, platelet count of 251. Chem-7, sodium of 140, potassium 3.7, chloride 102, CO2 of 33, BUN and creatinine of 80 and 1.2. ASSESSMENT AND PLAN: A 61-year-old male, known to our Gastroenterology Service in the past with reported esophagitis in the past, now with history of atrial fibrillation, on Xarelto, and presents now with sputum by trach, but also reported dark stools. The patient noted to be anemic. The patient has had EGD in the past. His previous records are not available at this time. The patient is on Xarelto and I think given his history, it may be more prudent to hold Xarelto. Management as noted below. PLAN: 1. We will review office chart, especially most recent EGD. 2. PPI IV b.i.d. 3. Follow hematocrit and transfuse to hemoglobin over 7.5. 4. No plans for EGD at this time. 5. Await Cardiology input. 6. Further recommendation based on progress. JOB# [id number] CAB/NTS
[2017-01-04] MEDS: TYLENOL FEEDTUBE PRN (16:08)
[2017-01-04] MEDS: NOVOLOG SUB-Q SCH ×2 (17:20→23:01)
[2017-01-04] MEDS: PULMICORT IH SCH (20:33)
[2017-01-04] MEDS ORDERED: SYMMETREL FEEDTUBE SCH (22:00)
[2017-01-04] MEDS ORDERED: FERROUS SULFATE FEEDTUBE SCH (22:00)
[2017-01-04] MEDS: LOPRESSOR FEEDTUBE SCH (22:57)
[2017-01-04] MEDS: DESYREL PO SCH (22:58)
[2017-01-04] MEDS: SYMMETREL FEEDTUBE SCH (22:59)
[2017-01-05] MEDS: PULMICORT IH SCH ×3 (00:04→20:18)
[2017-01-05] MEDS: DUONEB *Not for PRN Use IH SCH ×5 (00:05→20:18)
[2017-01-05] MEDS: NACL 0.9% 1000 ML 1,000 ML IV SCH ×3 (02:14→17:59)
[2017-01-05 05:28] LABS: Basophils % (Auto) 0.3 % (0.0-1.8); Eosinophils % (Auto) 0.5 % (0.0-4.3); Hematocrit 24.8 % (35.5-45.6); Hemoglobin 8.1 gm/dl (11.8-15.2); Mean Corpuscular HGB Conc 33 % (32-34); Mean Corpuscular Hemoglobin 26 pg (28-32); Mean Corpuscular Volume 80 fl (84-94); Platelet Count 257 K/mm3 (140-440); Red Cell Distribution Width 19.1 % (13.2-15.2); White Blood Count 15.6 K/mm3 (4.5-11.0)
[2017-01-05 05:36] LABS: Anion Gap 20 mmol/L; BUN/Creatinine Ratio 55; Blood Urea Nitrogen 61 mg/dL (9-20); Calcium 8.8 mg/dL (8.4-10.2); Carbon Dioxide 27 mmol/L (22-30); Chloride 107.6 mmol/L (98-107); Glucose 144 mg/dL (75-100); Potassium 3.6 mmol/L (3.6-5.0); Sodium 151 mmol/L (137-145)
--- NOTE | 2017-01-05 08:08 | Consultation ---
History of Present Illness Consult date: 01/05/17 History of present illness: I have gone over the CT of the head there was prior hx of bleed in the cerebellum and surgery was done the shunt catheter was placed to deal with post op obstruction from the site of the surgery.... mental status is fairly typical for posterior carmina bleed ogf the type we see doubt there are seizures but will check EEG I agree with the interpretation of the CT of the head ... shunt catheter is working and very effective no repeat bleed or evidence of infection at the surgical site doses of prozac and ativan I doubt are causing the lethargy suspect medical issue are primary effect of lethargy Past History Past Medical History: atrial fib, stroke, other (her cranial hemorrhage) Past Surgical History: valve replacement, Other (tracheostomy and RESEARCH ASST shunt) Social history: full code. denies: smoking, alcohol abuse, prescription drug abuse, IV drug use Family history: no significant family history Medications and Allergies Allergies Allergy/AdvReac Type Severity Reaction Status Date / Time latex Allergy Unknown Verified 01/04/17 09:05 Penicillins Allergy Unknown Verified 01/04/17 09:05 vancomycin Allergy Unknown Verified 01/04/17 09:05 Home Medications Medication Instructions Recorded Confirmed Last Taken Type Acetaminophen [Tylenol Extra 500 mg FEEDTUBE QID PRN 01/04/17 01/04/17 Unknown History Strength] Amantadine HCl [Amantadine] 150 mg FEEDTUBE BID 01/04/17 01/04/17 Unknown History Aspirin BABY CHEW TAB 81 mg FEEDTUBE DAILY 01/04/17 01/04/17 Unknown History Budesonide [Pulmicort] 0.5 mg IH Q12HR 01/04/17 01/04/17 Unknown History Cetirizine HCl [All Day Allergy] 10 mg FEEDTUBE DAILY 01/04/17 01/04/17 Unknown History Digoxin [Lanoxin] 0.25 mg FEEDTUBE DAILY 01/04/17 01/04/17 Unknown History Diltiazem [CarDIZEM] 30 mg FEEDTUBE DAILY 01/04/17 01/04/17 Unknown History FLUoxetine [PROzac] 20 mg FEEDTUBE QDAY 01/04/17 01/04/17 Unknown History Ferrous Sulfate 7.5 ml FEEDTUBE BID 01/04/17 01/04/17 Unknown History Hyoscyamine Sulfate [Hyoscyamine 0.125 mg FEEDTUBE Q4H PRN 01/04/17 01/04/17 Unknown History Rapdis 0.125 mg] Insulin Aspart [Novolog Flexpen] 0 unit SQ BID 01/04/17 01/04/17 Unknown History Insulin Detemir [Levemir] 5 units SUB-Q QHS 01/04/17 01/04/17 Unknown History Ipratropium/Albuterol Sulfate 1 ampul IH Q4HR 01/04/17 01/04/17 Unknown History [DUONEB *Not for PRN Use*] LORazepam [Ativan] 1 mg FEEDTUBE BID PRN 01/04/17 01/04/17 Unknown History Metoprolol [Lopressor] 25 mg FEEDTUBE BID 01/04/17 01/04/17 Unknown History Ondansetron [Zofran Oral Liq] 4 mg FEEDTUBE Q6HR PRN 01/04/17 01/04/17 Unknown History Pantoprazole Sodium 40 mg FEEDTUBE DAILY 01/04/17 01/04/17 Unknown History Rivaroxaban [Xarelto] 20 mg FEEDTUBE QHS 01/04/17 01/04/17 Unknown History guaiFENesin [Guaifenesin] 100 mg FEEDTUBE BID PRN 01/04/17 01/04/17 Unknown History traZODone [Desyrel] 25 mg FEEDTUBE QHS 01/04/17 01/04/17 Unknown History Active Meds: Active Medications Acetaminophen (Tylenol) 650 mg FEEDTUBE Q4H PRN PRN Reason: Pain, Mild (1-3) Last Admin: 01/04/17 16:08 Dose: 650 mg Albuterol/Ipratropium (Duoneb *Not For Prn Use*) 1 ampul IH Q6HRT [facility] Last Admin: 01/05/17 07:53 Dose: 1 ampul Amantadine HCl (Symmetrel) 150 mg FEEDTUBE BID [facility] Last Admin: 01/04/17 22:59 Dose: 150 mg Lipase/Protease/Amylase (Pancreaze Dr 10,500 Unit) 1 each FEEDTUBE PRN PRN PRN Reason: For Clogged Feeding Tube Budesonide (Pulmicort) 0.5 mg IH Q12HRT [facility] Last Admin: 01/05/17 07:53 Dose: 0.5 mg Dextrose (D50w (25gm) Syringe) 50 ml IV PRN PRN PRN Reason: Hypoglycemia Digoxin (Lanoxin) 0.25 mg FEEDTUBE DAILY [facility] Diltiazem HCl (Cardizem) 30 mg FEEDTUBE DAILY [facility] Ferrous Sulfate (Ferrous Sulfate) 450 mg PO QDAY [facility] Fluoxetine HCl (Prozac) 20 mg FEEDTUBE QDAY [facility] Guaifenesin (Robitussin) 100 mg FEEDTUBE BID PRN PRN Reason: Cough Hyoscyamine (Levsin Sl) 0.125 mg SL Q4H PRN PRN Reason: Spasms Levofloxacin/Dextrose (Levaquin 750mg/150ml) 750 mg in 150 mls @ 100 mls/hr IV Q24HR [facility] PRN Reason: Protocol Sodium Chloride (Nacl 0.9% 1000 Ml) 1,000 mls @ 125 mls/hr IV DIRECT [facility] Last Admin: 01/05/17 02:14 Dose: 125 mls/hr Influenza Virus Vaccine Quadrival (Fluarix Quad [id number](36 Mos+) 0.5 ml IM .ONCE ONE Stop: 01/05/17 12:01 Insulin Aspart (Novolog) 0 units SUB-Q ACHS [facility] PRN Reason: Protocol Last Admin: 01/04/17 23:01 Dose: Not Given Lorazepam (Ativan) 1 mg FEEDTUBE BID PRN PRN Reason: Agitation Metoprolol Tartrate (Lopressor) 25 mg FEEDTUBE BID [facility] Last Admin: 01/04/17 22:57 Dose: 25 mg Pantoprazole Sodium (Protonix) 40 mg PO DAILY [facility] Simple Syrup (Simple Syrup) 15 ml FEEDTUBE PRN PRN PRN Reason: Hypoglycemia Simple Syrup (Simple Syrup) 30 ml FEEDTUBE PRN PRN PRN Reason: Hypoglycemia Sodium Bicarbonate (Sodium Bicarbonate) 325 mg FEEDTUBE PRN PRN PRN Reason: For Clogged Feeding Tube Trazodone HCl (Desyrel) 25 mg PO QHS [facility] Last Admin: 01/04/17 22:58 Dose: 25 mg Physical Examination - Vital Signs Vital Signs: Vital Signs Resp 21 01/04/17 05:06 Results - Laboratory Findings CBC and BMP: 01/05/17 04:46 01/05/17 04:46 Abnormal Lab Findings: Abnormal Labs 01/04/17 01/04/17 01/04/17 07:03 07:21 07:31 WBC 16.4 H RBC 2.48 L Hgb 6.2 L Hct 20.1 L MCV 81 L MCH 25 L MCHC 31 L RDW 19.7 H Lymph % (Auto) Seg Neutrophils % Seg Neutrophils # PT 18.1 H INR 1.42 H APTT 59.9 H Sodium Chloride Carbon Dioxide BUN Glucose POC Glucose 210 H Hemoglobin A1c Magnesium Total Creatine Kinase Urine WBC (Auto) Crossmatch 01/04/17 01/04/17 01/04/17 07:31 09:03 12:01 WBC RBC Hgb 6.1 L Hct 19.4 L* MCV MCH MCHC RDW Lymph % (Auto) Seg Neutrophils % Seg Neutrophils # PT INR APTT Sodium 148 H Chloride Carbon Dioxide 33 H BUN 80 H Glucose 182 H POC Glucose Hemoglobin A1c Magnesium 2.60 H Total Creatine Kinase 26 L Urine WBC (Auto) Crossmatch See Detail 01/04/17 01/04/17 01/04/17 12:01 16:50 22:46 WBC RBC Hgb Hct MCV MCH MCHC RDW Lymph % (Auto) Seg Neutrophils % Seg Neutrophils # PT INR APTT Sodium Chloride Carbon Dioxide BUN Glucose POC Glucose 217 H 115 H Hemoglobin A1c 6.8 H Magnesium Total Creatine Kinase Urine WBC (Auto) Crossmatch 01/04/17 01/05/17 01/05/17 Unknown 03:50 04:46 WBC 15.6 H RBC 3.10 L Hgb 8.1 L Hct 24.8 L MCV 80 L MCH 26 L MCHC RDW 19.1 H Lymph % (Auto) 11.4 L Seg Neutrophils % 82.7 H Seg Neutrophils # 12.9 H PT INR APTT Sodium Chloride Carbon Dioxide BUN Glucose POC Glucose 140 H Hemoglobin A1c Magnesium Total Creatine Kinase Urine WBC (Auto) > 182.0 H Crossmatch 01/05/17 01/05/17 04:46 06:21 WBC RBC Hgb Hct MCV MCH MCHC RDW Lymph % (Auto) Seg Neutrophils % Seg Neutrophils # PT INR APTT Sodium 151 H Chloride 107.6 H Carbon Dioxide BUN 61 H Glucose 144 H POC Glucose 154 H Hemoglobin A1c Magnesium Total Creatine Kinase Urine WBC (Auto) Crossmatch
[2017-01-05] MEDS: NOVOLOG SUB-Q SCH ×4 (08:40→22:03)
--- NOTE | 2017-01-05 09:04 | Event Note ---
Date: 01/05/17 No overall change clinically from the cardiac standpoint Vital signs stable heart rate 70-80 Chest diminished breath sounds Cardiac exam reveals irregularly irregular rhythm Abdomen soft Cardiac status appears to be stable. Hemoglobin and hematocrit improved after transfusion Appreciate neurology consult. Would defer decision guarding resumption of anticoagulation to the neurologist at this point once bleeding issue is stabilized and resolved
[2017-01-05] MEDS: LANOXIN FEEDTUBE SCH (09:13)
[2017-01-05] MEDS: CARDIZEM FEEDTUBE SCH (09:14)
[2017-01-05] MEDS: FERROUS SULFATE PO SCH (09:15)
[2017-01-05] MEDS: LEVAQUIN 750MG/150ML 750 MG/150 ML BAG IV SCH (09:15)
[2017-01-05] MEDS: LOPRESSOR FEEDTUBE SCH ×2 (09:16→21:48)
[2017-01-05] MEDS: ATIVAN FEEDTUBE PRN (09:16)
--- NOTE | 2017-01-05 09:16 | Consultation ---
HISTORY OF PRESENT ILLNESS: This is a 61-year-old black male that presents to [facility] who has been previously under the care of Dr. Jesus Ewing and had a history of being on anticoagulation with Xarelto and had an intraventricular hemorrhage and had a PREFORM [employer]ATE [employer] shunt. He is neurologically impaired, vent dependent, presented to the Emergency Room coughing of blood from the tracheostomy site. He was reported to be lethargic, weaker than usual. His medicines on admission were multiple. Please review a copy of this present on the chart. What medicines are pertinent to me would be that he is on Ativan 1 mg b.i.d. p.r.n. agitation. He is also on insulin, Prozac 20 mg, diltiazem, but specifically is on no seizure medicines. There are no family members available to obtain a cross history from. I have reviewed his CT scan of the head and it shows extreme atrophy of the fourth ventricle. There seems to be some hyperintense focus in the posterior roof of the fourth ventricle. Ventricular system is largely dilated including the third ventricle to a portion of the temporal horns. PREFORM PLATE MAKER shunt apparatus is in appropriate position and seems to be draining well. It is actually in the diencephalic area immediately anterior to the vera. The patient has evidence of a functioning shunt apparatus, but the debris present within the fourth ventricle, would indicate that he more than likely had some type of cerebellar hemorrhage, which may have been multifocal as there is volume loss and cerebellum, specifically none in the brainstem. PHYSICAL EXAMINATION: Shows the patient has his eyes open, not speaking. The PREFORM PLATE MAKER shunt apparatus was evaluated and has normal appearance subcutaneously coursing from the right frontal area where it ingresses the craniotomy site and courses behind the right ear and there is no evidence of any external drainage of CSF. He moves all extremities well. He has a tracheostomy. He is tremulous, but I do not see any seizure activity. No jerking, no abnormal movements otherwise present. His gaze is full. His hearing is intact, but he cannot follow commands. IMPRESSION: The patient has obviously had a severe neurological injury, primarily to brainstem structures. Based on my viewing the scans, his shunt is working well. I do think his dose of Ativan was too excessive prior to admission and at this point, patient's condition seems stable. I will get an EEG to further assess this. JOB# [id number] BRITNI/CHARLENE
[2017-01-05] MEDS: PROTONIX PO SCH (09:17)
[2017-01-05] MEDS: PROzac FEEDTUBE SCH (09:17)
[2017-01-05 09:50] LABS: Hematocrit 26.1 % (35.5-45.6); Hemoglobin 8.2 gm/dl (11.8-15.2)
[2017-01-05] MEDS: SYMMETREL FEEDTUBE SCH ×2 (10:16→22:53)
--- NOTE | 2017-01-05 11:35 | Gastroenterology Progress Note ---
Assessment and Plan GI: stable after transfusion w/o active bleeding - follow h/h, transfuse as needed - no plans to scope at this - Continue PPI iv - neurology as to anti-coagulation - no changes, will follow Subjective Date of service: 01/05/17 Interval history: - no GI issues overnight, no signs further bleeding Objective - Constitutional Vitals: Temp Pulse Resp BP Pulse Ox 98.9 F 87 18 122/59 92 01/05/17 08:43 01/05/17 09:16 01/05/17 08:43 01/05/17 09:16 01/05/17 08:43 General appearance: no acute distress - EENT Eyes: PERRL - Respiratory Respiratory: bilateral: CTA - Cardiovascular Rhythm: regular Heart Sounds: Present: S1 & S2 - Gastrointestinal General gastrointestinal: Present: soft, non-tender, non-distended - Labs CBC & Chem 7: 01/05/17 09:25 01/05/17 04:46 Labs: Laboratory Results - last 24 hr 01/04/17 01/04/17 01/04/17 09:03 12:01 12:01 WBC RBC Hgb 6.1 L Hct 19.4 L* MCV MCH MCHC RDW Plt Count Lymph % (Auto) [place] % (Auto) Eos % (Auto) Baso % (Auto) Lymph # [place] # Eos # Baso # Seg Neutrophils % Seg Neutrophils # Sodium Potassium Chloride Carbon Dioxide Anion Gap BUN Creatinine Estimated GFR BUN/Creatinine Ratio Glucose POC Glucose Hemoglobin A1c 6.8 H Calcium Blood Type B POSITIVE Antibody Screen Negative Crossmatch See Detail 01/04/17 01/04/17 01/05/17 16:50 22:46 03:50 WBC RBC Hgb Hct MCV MCH MCHC RDW Plt Count Lymph % (Auto) [place] % (Auto) Eos % (Auto) Baso % (Auto) Lymph # [place] # Eos # Baso # Seg Neutrophils % Seg Neutrophils # Sodium Potassium Chloride Carbon Dioxide Anion Gap BUN Creatinine Estimated GFR BUN/Creatinine Ratio Glucose POC Glucose 217 H 115 H 140 H Hemoglobin A1c Calcium Blood Type Antibody Screen Crossmatch 01/05/17 01/05/17 01/05/17 04:46 04:46 06:21 WBC 15.6 H RBC 3.10 L Hgb 8.1 L Hct 24.8 L MCV 80 L MCH 26 L MCHC 33 RDW 19.1 H Plt Count 257 Lymph % (Auto) 11.4 L [place] % (Auto) 5.1 Eos % (Auto) 0.5 Baso % (Auto) 0.3 Lymph # 1.8 [place] # 0.8 Eos # 0.1 Baso # 0.0 Seg Neutrophils % 82.7 H Seg Neutrophils # 12.9 H Sodium 151 H Potassium 3.6 Chloride 107.6 H Carbon Dioxide 27 Anion Gap 20 BUN 61 H Creatinine 1.1 Estimated GFR > 60 BUN/Creatinine Ratio 55 Glucose 144 H POC Glucose 154 H Hemoglobin A1c Calcium 8.8 Blood Type Antibody Screen Crossmatch 01/05/17 09:25 WBC RBC Hgb 8.2 L Hct 26.1 L MCV MCH MCHC RDW Plt Count Lymph % (Auto) [place] % (Auto) Eos % (Auto) Baso % (Auto) Lymph # [place] # Eos # Baso # Seg Neutrophils % Seg Neutrophils # Sodium Potassium Chloride Carbon Dioxide Anion Gap BUN Creatinine Estimated GFR BUN/Creatinine Ratio Glucose POC Glucose Hemoglobin A1c Calcium Blood Type Antibody Screen Crossmatch
[2017-01-05] MEDS ORDERED: Fluarix Quad 2017-2018(36 MOS+ IM ONE (12:00)
--- NOTE | 2017-01-05 12:03 | Consultation ---
History of Present Illness Consult date: 01/05/17 Requesting physician: RUSTY CARVAJAL Reason for consult: other (chronic respiratory failure with trach) History of present illness: 61 y/o male with prior ICH, and chronic respiratory with trach admitted with symptomatic anemia. Pulmonary consulted as patient has trach and per nursing had some blood in the trach. No distress noted. Satting 97% on 5 liters. CXR shows BELT SEWER shunt, cardiomegaly and clear lung ho. Patient not able to speak but will mouth words. No family at bedside. Past History Past Medical History: atrial fib, stroke, other (her cranial hemorrhage) Past Surgical History: valve replacement, Other (tracheostomy and BELT SEWER shunt) Social history: full code. denies: smoking, alcohol abuse, prescription drug abuse, IV drug use Family history: no significant family history Medications and Allergies Allergies Allergy/AdvReac Type Severity Reaction Status Date / Time latex Allergy Unknown Verified 01/04/17 09:05 Penicillins Allergy Unknown Verified 01/04/17 09:05 vancomycin Allergy Unknown Verified 01/04/17 09:05 Home Medications Medication Instructions Recorded Confirmed Last Taken Type Acetaminophen [Tylenol Extra 500 mg FEEDTUBE QID PRN 01/04/17 01/04/17 Unknown History Strength] Amantadine HCl [Amantadine] 150 mg FEEDTUBE BID 01/04/17 01/04/17 Unknown History Aspirin BABY CHEW TAB 81 mg FEEDTUBE DAILY 01/04/17 01/04/17 Unknown History Budesonide [Pulmicort] 0.5 mg IH Q12HR 01/04/17 01/04/17 Unknown History Cetirizine HCl [All Day Allergy] 10 mg FEEDTUBE DAILY 01/04/17 01/04/17 Unknown History Digoxin [Lanoxin] 0.25 mg FEEDTUBE DAILY 01/04/17 01/04/17 Unknown History Diltiazem [CarDIZEM] 30 mg FEEDTUBE DAILY 01/04/17 01/04/17 Unknown History FLUoxetine [PROzac] 20 mg FEEDTUBE QDAY 01/04/17 01/04/17 Unknown History Ferrous Sulfate 7.5 ml FEEDTUBE BID 01/04/17 01/04/17 Unknown History Hyoscyamine Sulfate [Hyoscyamine 0.125 mg FEEDTUBE Q4H PRN 01/04/17 01/04/17 Unknown History Rapdis 0.125 mg] Insulin Aspart [Novolog Flexpen] 0 unit SQ BID 01/04/17 01/04/17 Unknown History Insulin Detemir [Levemir] 5 units SUB-Q QHS 01/04/17 01/04/17 Unknown History Ipratropium/Albuterol Sulfate 1 ampul IH Q4HR 01/04/17 01/04/17 Unknown History [DUONEB *Not for PRN Use*] LORazepam [Ativan] 1 mg FEEDTUBE BID PRN 01/04/17 01/04/17 Unknown History Metoprolol [Lopressor] 25 mg FEEDTUBE BID 01/04/17 01/04/17 Unknown History Ondansetron [Zofran Oral Liq] 4 mg FEEDTUBE Q6HR PRN 01/04/17 01/04/17 Unknown History Pantoprazole Sodium 40 mg FEEDTUBE DAILY 01/04/17 01/04/17 Unknown History Rivaroxaban [Xarelto] 20 mg FEEDTUBE QHS 01/04/17 01/04/17 Unknown History guaiFENesin [Guaifenesin] 100 mg FEEDTUBE BID PRN 01/04/17 01/04/17 Unknown History traZODone [Desyrel] 25 mg FEEDTUBE QHS 01/04/17 01/04/17 Unknown History Active Meds: Active Medications Acetaminophen (Tylenol) 650 mg FEEDTUBE Q4H PRN PRN Reason: Pain, Mild (1-3) Last Admin: 01/04/17 16:08 Dose: 650 mg Albuterol/Ipratropium (Duoneb *Not For Prn Use*) 1 ampul IH Q6HRT [facility] Last Admin: 01/05/17 07:53 Dose: 1 ampul Amantadine HCl (Symmetrel) 150 mg FEEDTUBE BID [facility] Last Admin: 01/05/17 10:16 Dose: 150 mg Lipase/Protease/Amylase (Pancreaze Dr 10,500 Unit) 1 each FEEDTUBE PRN PRN PRN Reason: For Clogged Feeding Tube Budesonide (Pulmicort) 0.5 mg IH Q12HRT [facility] Last Admin: 01/05/17 07:53 Dose: 0.5 mg Dextrose (D50w (25gm) Syringe) 50 ml IV PRN PRN PRN Reason: Hypoglycemia Digoxin (Lanoxin) 0.25 mg FEEDTUBE DAILY [facility] Last Admin: 01/05/17 09:13 Dose: 0.25 mg Diltiazem HCl (Cardizem) 30 mg FEEDTUBE DAILY [facility] Last Admin: 01/05/17 09:14 Dose: 30 mg Ferrous Sulfate (Ferrous Sulfate) 450 mg PO QDAY [facility] Last Admin: 01/05/17 09:15 Dose: 450 mg Fluoxetine HCl (Prozac) 20 mg FEEDTUBE QDAY [facility] Last Admin: 01/05/17 09:17 Dose: 20 mg Guaifenesin (Robitussin) 100 mg FEEDTUBE BID PRN PRN Reason: Cough Hyoscyamine (Levsin Sl) 0.125 mg SL Q4H PRN PRN Reason: Spasms Levofloxacin/Dextrose (Levaquin 750mg/150ml) 750 mg in 150 mls @ 100 mls/hr IV Q24HR [facility] PRN Reason: Protocol Last Admin: 01/05/17 09:15 Dose: 100 mls/hr Sodium Chloride (Nacl 0.9% 1000 Ml) 1,000 mls @ 125 mls/hr IV DIRECT [facility] Last Admin: 01/05/17 11:03 Dose: 125 mls/hr Influenza Virus Vaccine Quadrival (Fluarix Quad [id number](36 Mos+) 0.5 ml IM .ONCE ONE Stop: 01/05/17 12:01 Last Admin: 01/05/17 11:06 Dose: 0.5 ml Insulin Aspart (Novolog) 0 units SUB-Q ACHS [facility] PRN Reason: Protocol Last Admin: 01/05/17 08:40 Dose: 3 units Lorazepam (Ativan) 1 mg FEEDTUBE BID PRN PRN Reason: Agitation Last Admin: 01/05/17 09:16 Dose: 1 mg Metoprolol Tartrate (Lopressor) 25 mg FEEDTUBE BID [facility] Last Admin: 01/05/17 09:16 Dose: 25 mg Pantoprazole Sodium (Protonix) 40 mg PO DAILY [facility] Last Admin: 01/05/17 09:17 Dose: 40 mg Simple Syrup (Simple Syrup) 15 ml FEEDTUBE PRN PRN PRN Reason: Hypoglycemia Simple Syrup (Simple Syrup) 30 ml FEEDTUBE PRN PRN PRN Reason: Hypoglycemia Sodium Bicarbonate (Sodium Bicarbonate) 325 mg FEEDTUBE PRN PRN PRN Reason: For Clogged Feeding Tube Trazodone HCl (Desyrel) 25 mg PO QHS [facility] Last Admin: 01/04/17 22:58 Dose: 25 mg Review of Systems ROS unobtainable: due to mental status Physical Examination Vital signs: Vital Signs Resp 21 01/04/17 05:06 General appearance: no acute distress, alert Eyes: non-icteric ENT: oropharynx dry Neck: supple, other (trach midline) Effort: normal Ascultation: Bilateral: clear Results - Laboratory Findings CBC and BMP: 01/05/17 09:25 01/05/17 04:46 PT/INR, D-dimer PT 18.1 Sec. (12.2-14.9) H 01/04/17 07:31 INR 1.42 (0.87-1.13) H 01/04/17 07:31 Abnormal lab findings: Abnormal Labs 01/04/17 01/04/17 01/04/17 07:03 07:21 07:31 WBC 16.4 H RBC 2.48 L Hgb 6.2 L Hct 20.1 L MCV 81 L MCH 25 L MCHC 31 L RDW 19.7 H Lymph % (Auto) Seg Neutrophils % Seg Neutrophils # PT 18.1 H INR 1.42 H APTT 59.9 H Sodium Chloride Carbon Dioxide BUN Glucose POC Glucose 210 H Hemoglobin A1c Magnesium Total Creatine Kinase Urine WBC (Auto) Crossmatch 01/04/17 01/04/17 01/04/17 07:31 09:03 12:01 WBC RBC Hgb 6.1 L Hct 19.4 L* MCV MCH MCHC RDW Lymph % (Auto) Seg Neutrophils % Seg Neutrophils # PT INR APTT Sodium 148 H Chloride Carbon Dioxide 33 H BUN 80 H Glucose 182 H POC Glucose Hemoglobin A1c Magnesium 2.60 H Total Creatine Kinase 26 L Urine WBC (Auto) Crossmatch See Detail 01/04/17 01/04/17 01/04/17 12:01 16:50 22:46 WBC RBC Hgb Hct MCV MCH MCHC RDW Lymph % (Auto) Seg Neutrophils % Seg Neutrophils # PT INR APTT Sodium Chloride Carbon Dioxide BUN Glucose POC Glucose 217 H 115 H Hemoglobin A1c 6.8 H Magnesium Total Creatine Kinase Urine WBC (Auto) Crossmatch 01/04/17 01/05/1701/05/17 Unknown 03:50 04:46 WBC 15.6 H RBC 3.10 L Hgb 8.1 L Hct 24.8 L MCV 80 L MCH 26 L MCHC RDW 19.1 H Lymph % (Auto) 11.4 L Seg Neutrophils % 82.7 H Seg Neutrophils # 12.9 H PT INR APTT Sodium Chloride Carbon Dioxide BUN Glucose POC Glucose 140 H Hemoglobin A1c Magnesium Total Creatine Kinase Urine WBC (Auto) > 182.0 H Crossmatch 01/05/17 01/05/17 01/05/17 04:46 06:21 09:25 WBC RBC Hgb 8.2 L Hct 26.1 L MCV MCH MCHC RDW Lymph % (Auto) Seg Neutrophils % Seg Neutrophils # PT INR APTT Sodium 151 H Chloride 107.6 H Carbon Dioxide BUN 61 H Glucose 144 H POC Glucose 154 H Hemoglobin A1c Magnesium Total Creatine Kinase Urine WBC (Auto) Crossmatch - Diagnostic Findings Chest x-ray: image reviewed (as stated in HPI) Assessment and Plan 61 y/o male with chronic respiratory failure secondary to stroke, admitted with symptomatic anemia. 1. Trach care 2. Supplemental O2 3. No indication for bronch at this time 4. Continue home regimen Will see as needed unless there is a specific questions that is needed. Thank you for this consult.
--- NOTE | 2017-01-05 13:42 | Progress Note ---
Assessment and Plan Assessment and plan: Severe anemia - Patient's H&H on admission was 07/30 and transfused 2 units of blood post transfusion hemoglobin is 8 - GI consulted and recommended PPI no colonoscopy at this time History of ICH - Neurology consult appreciated - With neurology recommendation about anticoagulation, I held Xarelto for now A. fib, status post 2 bioprosthetic valves - held xarelto - Cardiology consult appreciated Sacral decubitus ulcer - Wound care consulted Status post trach, respiratory distress - Duonebs, oxygen support - Pulmonary consult, appreciated Resume appropriate home medications DVT prophylaxis - Mechanical, because of bleeding Disposition -Continue inpatient History Interval history: Patient was seen and evaluated this morning, no family member was in the room. Patient is non communicative. Hospitalist Physical - Physical exam Narrative exam: Patient is on PEG and trach. The patient appeared well nourished and normally developed. Vital signs as documented. Head exam is unremarkable. No scleral icterus . Neck is without jugular venous distension, thyromegaly, or carotid bruits. Lungs are clear to auscultation. Cardiac exam reveals regular rate and Rhythm. First and second heart sounds normal. No murmurs, rubs or gallops. Abdominal exam reveals in place. Extremities are nonedematous and both femoral and pedal pulses are normal. 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 - Constitutional Vitals: Temp Pulse Resp BP Pulse Ox 99.7 F H 71 18 116/62 88 01/05/17 12:45 01/05/17 12:45 01/05/17 12:45 01/05/17 12:45 01/05/17 12:45 General appearance: Present: cachectic Results - Labs CBC & Chem 7: 01/05/17 09:25 01/05/17 04:46 Labs: Laboratory Last Values WBC 15.6 K/mm3 (4.5-11.0) H 01/05/17 04:46 RBC 3.10 M/mm3 (3.65-5.03) L 01/05/17 04:46 Hgb 8.2 gm/dl (11.8-15.2) L 01/05/17 09:25 Hct 26.1 % (35.5-45.6) L 01/05/17 09:25 MCV 80 fl (84-94) L 01/05/17 04:46 MCH 26 pg (28-32) L 01/05/17 04:46 MCHC 33 % (32-34) 01/05/17 04:46 RDW 19.1 % (13.2-15.2) H 01/05/17 04:46 Plt Count 257 K/mm3 (140-440) 01/05/17 04:46 Lymph % (Auto) 11.4 % (13.4-35.0) L 01/05/17 04:46 [place] % (Auto) 5.1 % (0.0-7.3) 01/05/17 04:46 Eos % (Auto) 0.5 % (0.0-4.3) 01/05/17 04:46 Baso % (Auto) 0.3 % (0.0-1.8) 01/05/17 04:46 Lymph # 1.8 K/mm3 (1.2-5.4) 01/05/17 04:46 [place] # 0.8 K/mm3 (0.0-0.8) 01/05/17 04:46 Eos # 0.1 K/mm3 (0.0-0.4) 01/05/17 04:46 Baso # 0.0 K/mm3 (0.0-0.1) 01/05/17 04:46 Seg Neutrophils % 82.7 % (40.0-70.0) H 01/05/17 04:46 Seg Neutrophils # 12.9 K/mm3 (1.8-7.7) H 01/05/17 04:46 PT 18.1 Sec. (12.2-14.9) H 01/04/17 07:31 INR 1.42 (0.87-1.13) H 01/04/17 07:31 APTT 59.9 Sec. (24.2-36.6) H 01/04/17 07:31 Sodium 151 mmol/L (137-145) H 01/05/17 04:46 Potassium 3.6 mmol/L (3.6-5.0) 01/05/17 04:46 Chloride 107.6 mmol/L (98-107) H 01/05/17 04:46 Carbon Dioxide 27 mmol/L (22-30) 01/05/17 04:46 Anion Gap 20 mmol/L 01/05/17 04:46 BUN 61 mg/dL (9-20) H 01/05/17 04:46 Creatinine 1.1 mg/dL (0.8-1.5) 01/05/17 04:46 Estimated GFR > 60 ml/min 01/05/17 04:46 BUN/Creatinine Ratio 55 % 01/05/17 04:46 Glucose 144 mg/dL (75-100) H 01/05/17 04:46 POC Glucose 122 (70-105) H 01/05/17 12:05 Hemoglobin A1c 6.8 % (4-6) H 01/04/17 12:01 Lactic Acid 1.30 mmol/L (0.7-2.0) 01/04/17 07:21 Calcium 8.8 mg/dL (8.4-10.2) 01/05/17 04:46 Magnesium 2.60 mg/dL (1.7-2.3) H 01/04/17 07:31 Total Creatine Kinase 26 units/L (55-170) L 01/04/17 07:31 Urine Color Yellow (Yellow) 01/04/17 Unknown Urine Turbidity Clear (Clear) 01/04/17 Unknown Urine pH 5.0 (5.0-7.0) 01/04/17 Unknown Ur Specific [place] 1.014 (1.003-1.030) 01/04/17 Unknown Urine Protein 30 mg/dl mg/dL (Negative) 01/04/17 Unknown Urine Glucose (UA) Neg mg/dL (Negative) 01/04/17 Unknown Urine Ketones Neg mg/dL (Negative) 01/04/17 Unknown Urine Blood Sm (Negative) 01/04/17 Unknown Urine Nitrite Neg (Negative) 01/04/17 Unknown Ur Reducing Substances Not Reportable 01/04/17 Unknown Urine Bilirubin Neg (Negative) 01/04/17 Unknown Urine Ictotest Not Reportable 01/04/17 Unknown Urine Urobilinogen < 2.0 mg/dL (<2.0) 01/04/17 Unknown Ur Leukocyte Esterase Lg (Negative) 01/04/17 Unknown Urine WBC (Auto) > 182.0 /HPF (0.0-6.0) H 01/04/17 Unknown Urine RBC (Auto) 58.0 /HPF (0.0-6.0) 01/04/17 Unknown Urine Bacteria (Auto) 4+ /HPF (Negative) 01/04/17 Unknown Urine WBC Clumps 3+ /HPF 01/04/17 Unknown Urine Mucus Few /HPF 01/04/17 Unknown Urine Yeast (Budding) 1+ /HPF 01/04/17 Unknown Blood Type B POSITIVE 01/04/17 09:03 Antibody Screen Negative 01/04/17 09:03 Crossmatch See Detail 01/04/17 09:03
[2017-01-05 15:22] LABS: Hematocrit 25.2 % (35.5-45.6)
[2017-01-05] MEDS: TYLENOL FEEDTUBE PRN (17:11)
[2017-01-05 21:14] LABS: Hematocrit 25.4 % (35.5-45.6); Hemoglobin 7.9 gm/dl (11.8-15.2)
[2017-01-05] MEDS: DESYREL PO SCH (21:48)
[2017-01-06] MEDS: NACL 0.9% 1000 ML 1,000 ML IV SCH ×3 (02:21→23:19)
[2017-01-06] MEDS ORDERED: KEPPRA 1,000 MG in NACL 0.9% 100 ML IV ONE (03:00)
--- NOTE | 2017-01-06 03:01 | Event Note ---
Date: 01/06/17 code met Patient had generalized tonic-clonic seizure Social requiring higher FIO2 Loaded with Keppra, IV Ativan as needed when necessary Check chest x-ray, this was reviewed Worsing pneumonia give a dose of aztreonam Critical care 35 minutes
[2017-01-06] MEDS: ATIVAN IV PRN ×2 (03:13→11:57)
[2017-01-06] MEDS: DUONEB *Not for PRN Use IH SCH ×4 (03:18→20:38)
[2017-01-06 03:22] LABS: Hemoglobin 8.4 gm/dl (11.8-15.2); Red Blood Count 3.26 M/mm3 (3.65-5.03)
[2017-01-06] MEDS: TYLENOL FEEDTUBE PRN ×2 (03:22→06:58)
[2017-01-06 03:23] LABS: Basophils % (Auto) 0.2 % (0.0-1.8); Hematocrit 26.8 % (35.5-45.6); Mean Corpuscular HGB Conc 32 % (32-34); Mean Corpuscular Hemoglobin 26 pg (28-32); Mean Corpuscular Volume 82 fl (84-94); Platelet Count 287 K/mm3 (140-440); Red Cell Distribution Width 19.4 % (13.2-15.2)
[2017-01-06 03:39] LABS: Anion Gap 23 mmol/L; BUN/Creatinine Ratio 39; Blood Urea Nitrogen 51 mg/dL (9-20); Calcium 8.8 mg/dL (8.4-10.2); Carbon Dioxide 23 mmol/L (22-30); Chloride 116.6 mmol/L (98-107); Glucose 145 mg/dL (75-100); Potassium 3.4 mmol/L (3.6-5.0); Sodium 159 mmol/L (137-145)
--- NOTE | 2017-01-06 04:52 | XRay Report ---
FINAL REPORT EXAM: XR CHEST 1V AP HISTORY: Temp 103 TECHNIQUE: A portable view of the chest was submitted. There are no previous chest radiographs available for comparison. FINDINGS: The lungs reveal diffuse airspace disease bilaterally. Pleural fluid is not seen. The heart size is normal. There is evidence of previous valve replacement surgery. There is a tracheostomy tube in good position. There is a ventriculoperitoneal shunt catheter coursing along the right chest wall. The bones and soft tissues do not show any acute changes. IMPRESSION: Diffuse bilateral airspace disease. How much of this is related to pneumonia versus pulmonary edema is uncertain.
[2017-01-06 05:07] LABS: ISTAT Base Excess 3; ISTAT HCO3 24.6; ISTAT PCO2 26.5 (35-45); ISTAT PH 7.575 (7.35-7.45); ISTAT PO2 55 (80-105); ISTAT SO2 93; ISTAT TCO2 25
[2017-01-06] MEDS ORDERED: AZACTAM/NS 1 GM/50 ML 1 GM/50 ML VIAL IV ONE (06:28)
[2017-01-06] MEDS: NOVOLOG SUB-Q SCH ×3 (06:44→17:18)
--- NOTE | 2017-01-06 09:03 | Progress Note ---
Assessment and Plan Chronic atrial fibrillation with moderate ventricular response. Home and area evaluation noted. No new cardiac recommendations at this time. Vital signs appear stable. h/h improved Awaiting neurological recommendation regarding safety of resuming anticoagulation from the cerebrovascular hemorrhagic perspective. Subjective Date of service: 01/06/17 Interval history: Patient resting quietly. In no acute distress. Family not at bedside. Objective Vital Signs Temp Pulse Pulse Resp Resp BP Pulse Ox 01/06/17 06:00 101.4 F H 01/06/17 03:05 99 H 32 H 01/06/17 02:45 97 01/05/17 23:27 98.9 F 16 120/68 01/05/17 23:06 01/05/17 21:48 79 110/64 01/05/17 20:28 60 20 01/05/17 20:18 58 L 20 99 01/05/17 19:25 99.1 F 20 110/64 01/05/17 16:52 100.5 F H 79 18 105/65 97 01/05/17 16:19 01/05/17 13:59 79 20 01/05/17 13:38 71 22 01/05/17 12:45 99.7 F H 71 18 116/62 88 01/05/17 09:16 87 122/59 01/05/17 09:14 87 122/59 01/05/17 09:13 87 122/59 Pulse Ox 01/06/17 06:00 01/06/17 03:05 01/06/17 02:45 01/05/17 23:27 01/05/17 23:06 99 01/05/17 21:48 01/05/17 20:28 01/05/17 20:18 01/05/17 19:25 01/05/17 16:52 01/05/17 16:19 100 01/05/17 13:59 01/05/17 13:38 01/05/17 12:45 01/05/17 09:16 01/05/17 09:14 01/05/17 09:13 - Physical Examination General: No Apparent Distress HEENT: Positive: Normocephaly Neck: Positive: neck supple, Carotid Upstroke. Negative: JVD/HJR, Bruit (2+) Cardiac: Positive: irregularly irregular. Negative: S3 Lungs: Positive: Decreased Breath Sounds Neuro: Positive: Other (nonverbal apparent tremulousness of upper extremities) Abdomen: Positive: Soft. Negative: Tender Skin: Negative: Rash Musculoskeletal: other (no joint swelling) Extremities: Absent: edema (upper extremities pulses intact pedal pulses diminished) - Labs and Meds CBC 01/05/17 01/05/17 01/05/17 Range/Units 09:25 14:48 20:38 WBC (4.5-11.0) K/mm3 RBC (3.65-5.03) M/mm3 Hgb 8.2 L 8.0 L 7.9 L (11.8-15.2) gm/dl Hct 26.1 L 25.2 L 25.4 L (35.5-45.6) % Plt Count (140-440) K/mm3 Lymph # (1.2-5.4) K/mm3 [place] # (0.0-0.8) K/mm3 Eos # (0.0-0.4) K/mm3 Baso # (0.0-0.1) K/mm3 01/06/17 Range/Units 03:11 WBC 18.0 H (4.5-11.0) K/mm3 RBC 3.26 L (3.65-5.03) M/mm3 Hgb 8.4 L (11.8-15.2) gm/dl Hct 26.8 L (35.5-45.6) % Plt Count 287 (140-440) K/mm3 Lymph # 1.4 (1.2-5.4) K/mm3 [place] # 0.8 (0.0-0.8) K/mm3 Eos # 0.0 (0.0-0.4) K/mm3 Baso # 0.0 (0.0-0.1) K/mm3 Comprehensive Metabolic Panel 01/06/17 Range/Units 03:11 Sodium 159 H D (137-145) mmol/L Potassium 3.4 L (3.6-5.0) mmol/L Chloride 116.6 H (98-107) mmol/L Carbon Dioxide 23 (22-30) mmol/L BUN 51 H (9-20) mg/dL Creatinine 1.3 (0.8-1.5) mg/dL Glucose 145 H (75-100) mg/dL Calcium 8.8 (8.4-10.2) mg/dL
[2017-01-06] MEDS: LEVAQUIN 750MG/150ML 750 MG/150 ML BAG IV SCH (09:11)
[2017-01-06] MEDS: PROzac FEEDTUBE SCH (09:11)
[2017-01-06] MEDS: PROTONIX PO SCH (09:12)
[2017-01-06] MEDS: FERROUS SULFATE PO SCH (09:12)
[2017-01-06] MEDS: SYMMETREL FEEDTUBE SCH ×2 (09:29→23:25)
[2017-01-06] MEDS ORDERED: KEPPRA 1,000 MG in NACL 0.9% 100 ML IV SCH (10:00)
[2017-01-06] MEDS: PULMICORT IH SCH ×2 (10:21→20:38)
[2017-01-06] MEDS: KEPPRA 1,000 MG/NS 0.75% 100ML 1,000 MG/100 ML BAG IV SCH ×2 (11:41→23:19)
--- NOTE | 2017-01-06 12:10 | Gastroenterology Progress Note ---
Assessment and Plan GI: h/h stable w/o further signs bleed - continue PPI qd - anti-coagulation per neurology rec - no plans to scope at this time - call if needed Subjective Date of service: 01/06/17 Interval history: - no signs GI bleed Objective - Constitutional Vitals: Temp Pulse Resp BP Pulse Ox 98.2 F 57 L 18 122/67 93 01/06/17 11:37 01/06/17 11:37 01/06/17 11:37 01/06/17 11:37 01/06/17 11:37 General appearance: no acute distress - EENT Eyes: PERRL - Respiratory Respiratory: bilateral: CTA - Cardiovascular Rhythm: regular Heart Sounds: Present: S1 & S2 - Gastrointestinal General gastrointestinal: Present: soft, non-tender, non-distended - Labs CBC & Chem 7: 01/06/17 03:11 01/06/17 03:11 Labs: Laboratory Results - last 24 hr 01/05/17 01/05/17 01/05/17 12:05 14:48 17:00 WBC RBC Hgb 8.0 L Hct 25.2 L MCV MCH MCHC RDW Plt Count Lymph % (Auto) [place] % (Auto) Eos % (Auto) Baso % (Auto) Lymph # [place] # Eos # Baso # Seg Neutrophils % Seg Neutrophils # POC ABG pH POC ABG pCO2 POC ABG pO2 POC ABG HCO3 POC ABG Total CO2 POC ABG O2 Sat POC ABG Base Excess FiO2 Sodium Potassium Chloride Carbon Dioxide Anion Gap BUN Creatinine Estimated GFR BUN/Creatinine Ratio Glucose POC Glucose 122 H 190 H Calcium 01/05/17 01/05/17 01/06/17 20:38 21:36 02:51 WBC RBC Hgb 7.9 L Hct 25.4 L MCV MCH MCHC RDW Plt Count Lymph % (Auto) [place] % (Auto) Eos % (Auto) Baso % (Auto) Lymph # [place] # Eos # Baso # Seg Neutrophils % Seg Neutrophils # POC ABG pH POC ABG pCO2 POC ABG pO2 POC ABG HCO3 POC ABG Total CO2 POC ABG O2 Sat POC ABG Base Excess FiO2 Sodium Potassium Chloride Carbon Dioxide Anion Gap BUN Creatinine Estimated GFR BUN/Creatinine Ratio Glucose POC Glucose 109 H 144 H Calcium 01/06/17 01/06/17 01/06/17 03:11 03:11 03:38 WBC 18.0 H RBC 3.26 L Hgb 8.4 L Hct 26.8 L MCV 82 L MCH 26 L MCHC 32 RDW 19.4 H Plt Count 287 Lymph % (Auto) 7.7 L [place] % (Auto) 4.3 Eos % (Auto) 0.0 Baso % (Auto) 0.2 Lymph # 1.4 [place] # 0.8 Eos # 0.0 Baso # 0.0 Seg Neutrophils % 87.8 H Seg Neutrophils # 15.8 H POC ABG pH 7.575 H POC ABG pCO2 26.5 L POC ABG pO2 55 L POC ABG HCO3 24.6 POC ABG Total CO2 25 POC ABG O2 Sat 93 POC ABG Base Excess 3 FiO2 50 Sodium 159 H D Potassium 3.4 L Chloride 116.6 H Carbon Dioxide 23 Anion Gap 23 BUN 51 H Creatinine 1.3 Estimated GFR > 60 BUN/Creatinine Ratio 39 Glucose 145 H POC Glucose Calcium 8.8 01/06/17 05:15 WBC RBC Hgb Hct MCV MCH MCHC RDW Plt Count Lymph % (Auto) [place] % (Auto) Eos % (Auto) Baso % (Auto) Lymph # [place] # Eos # Baso # Seg Neutrophils % Seg Neutrophils # POC ABG pH POC ABG pCO2 POC ABG pO2 POC ABG HCO3 POC ABG Total CO2 POC ABG O2 Sat POC ABG Base Excess FiO2 Sodium Potassium Chloride Carbon Dioxide Anion Gap BUN Creatinine Estimated GFR BUN/Creatinine Ratio Glucose POC Glucose 157 H Calcium
[2017-01-06] MEDS: LANOXIN FEEDTUBE SCH (12:18)
[2017-01-06] MEDS: LOPRESSOR FEEDTUBE SCH ×2 (12:19→23:26)
[2017-01-06] MEDS: AZACTAM/NS 2 GM/100 ML 2 GM/100 ML VIAL IV SCH ×3 (12:28→23:22)
[2017-01-06] MEDS ORDERED: ATIVAN IV ONE (12:31)
--- NOTE | 2017-01-06 14:15 | Progress Note ---
Assessment and Plan 61 y/o male with chronic respiratory failure secondary to stroke, admitted with symptomatic anemia. 1. Trach care 2. Supplemental O2 3. No indication for bronch at this time 4. Worsening CXR, could be infectious vs pulmonary edema. If patient was attempting to exhale against a closed glottis could have happened during seizure. Fever could also be from seizure as well. Will check a BNP. Hold on lasix therapy for right now and repeat ABG this afternoon. Subjective Date of service: 01/06/17 Interval history: Had a seizure last night. Per IMS, required more FiO2. CXR shows bilateral alveolar filling pattern, Differential is broad for this. ABG revealed a respiratory alkalosis with hypoxemia. No family currently at bedside. Patient is tachypnic. Last Sat documented at 93% on 5 liters. Objective Vital Signs - 12hr 01/06/17 01/06/17 01/06/17 02:45 03:05 06:00 Temperature 101.4 F H Pulse Rate 99 H Pulse Rate [ Anterior Bilateral Throughout] Respiratory 32 H Rate Respiratory Rate [Anterior Bilateral Throughout] Blood Pressure O2 Sat by Pulse 97 Oximetry O2 Sat by Pulse Oximetry [ Assessment] 01/06/17 01/06/17 01/06/17 07:48 10:15 10:41 Temperature 99.4 F Pulse Rate 87 Pulse Rate [ 87 Anterior Bilateral Throughout] Respiratory 18 Rate Respiratory 26 H 28 H Rate [Anterior Bilateral Throughout] Blood Pressure 106/64 O2 Sat by Pulse 94 93 Oximetry O2 Sat by Pulse 93 Oximetry [ Assessment] 01/06/17 01/06/17 01/06/17 11:37 12:18 12:19 Temperature 98.2 F Pulse Rate 57 L 85 85 Pulse Rate [ Anterior Bilateral Throughout] Respiratory 18 Rate Respiratory Rate [Anterior Bilateral Throughout] Blood Pressure 122/67 122/77 122/77 O2 Sat by Pulse 93 Oximetry O2 Sat by Pulse Oximetry [ Assessment] Constitutional: no acute distress, alert Eyes: non-icteric ENT: oropharynx dry Neck: supple, other (trach midline) Effort: normal Ascultation: Bilateral: rhonchi CBC and BMP: 01/06/17 03:11 01/06/17 03:11 ABG, PT/INR, D-dimer: ABG POC ABG pH 7.575 (7.35-7.45) H 01/06/17 03:38 POC ABG pCO2 26.5 (35-45) L 01/06/17 03:38 POC ABG pO2 55 (80-105) L 01/06/17 03:38 POC ABG HCO3 24.6 01/06/17 03:38 POC ABG Total CO2 25 01/06/17 03:38 POC ABG O2 Sat 93 01/06/17 03:38 PT/INR, D-dimer PT 18.1 Sec. (12.2-14.9) H 01/04/17 07:31 INR 1.42 (0.87-1.13) H 01/04/17 07:31 Abnormal lab findings: Abnormal Labs 01/04/17 01/04/17 01/04/17 07:03 07:21 07:31 WBC 16.4 H RBC 2.48 L Hgb 6.2 L Hct 20.1 L MCV 81 L MCH 25 L MCHC 31 L RDW 19.7 H Lymph % (Auto) Seg Neutrophils % Seg Neutrophils # PT 18.1 H INR 1.42 H APTT 59.9 H POC ABG pH POC ABG pCO2 POC ABG pO2 Sodium Potassium Chloride Carbon Dioxide BUN Glucose POC Glucose 210 H Hemoglobin A1c Magnesium Total Creatine Kinase Urine WBC (Auto) Crossmatch 01/04/17 01/04/17 01/04/17 07:31 09:03 12:01 WBC RBC Hgb 6.1 L Hct 19.4 L* MCV MCH MCHC RDW Lymph % (Auto) Seg Neutrophils % Seg Neutrophils # PT INR APTT POC ABG pH POC ABG pCO2 POC ABG pO2 Sodium 148 H Potassium Chloride Carbon Dioxide 33 H BUN 80 H Glucose 182 H POC Glucose Hemoglobin A1c Magnesium 2.60 H Total Creatine Kinase 26 L Urine WBC (Auto) Crossmatch See Detail 01/04/17 01/04/17 01/04/17 12:01 16:50 22:46 WBC RBC Hgb Hct MCV MCH MCHC RDW Lymph % (Auto) Seg Neutrophils % Seg Neutrophils # PT INR APTT POC ABG pH POC ABG pCO2 POC ABG pO2 Sodium Potassium Chloride Carbon Dioxide BUN Glucose POC Glucose 217 H 115 H Hemoglobin A1c 6.8 H Magnesium Total Creatine Kinase Urine WBC (Auto) Crossmatch 01/04/17 01/05/17 01/05/17 Unknown 03:50 04:46 WBC 15.6 H RBC 3.10 L Hgb 8.1 L Hct 24.8 L MCV 80 L MCH 26 L MCHC RDW 19.1 H Lymph % (Auto) 11.4 L Seg Neutrophils % 82.7 H Seg Neutrophils # 12.9 H PT INR APTT POC ABG pH POC ABG pCO2 POC ABG pO2 Sodium Potassium Chloride Carbon Dioxide BUN Glucose POC Glucose 140 H Hemoglobin A1c Magnesium Total Creatine Kinase Urine WBC (Auto) > 182.0 H Crossmatch 01/05/17 01/05/17 01/05/17 04:46 06:21 09:25 WBC RBC Hgb 8.2 L Hct 26.1 L MCV MCH MCHC RDW Lymph % (Auto) Seg Neutrophils % Seg Neutrophils # PT INR APTT POC ABG pH POC ABG pCO2 POC ABG pO2 Sodium 151 H Potassium Chloride 107.6 H Carbon Dioxide BUN 61 H Glucose 144 H POC Glucose 154 H Hemoglobin A1c Magnesium Total Creatine Kinase Urine WBC (Auto) Crossmatch 01/05/17 01/05/17 01/05/17 12:05 14:48 17:00 WBC RBC Hgb 8.0 L Hct 25.2 L MCV MCH MCHC RDW Lymph % (Auto) Seg Neutrophils % Seg Neutrophils # PT INR APTT POC ABG pH POC ABG pCO2 POC ABG pO2 Sodium Potassium Chloride Carbon Dioxide BUN Glucose POC Glucose 122 H 190 H Hemoglobin A1c Magnesium Total Creatine Kinase Urine WBC (Auto) Crossmatch 01/05/17 01/05/17 01/06/17 20:38 21:36 02:51 WBC RBC Hgb 7.9 L Hct 25.4 L MCV MCH MCHC RDW Lymph % (Auto) Seg Neutrophils % Seg Neutrophils # PT INR APTT POC ABG pH POC ABG pCO2 POC ABG pO2 Sodium Potassium Chloride Carbon Dioxide BUN Glucose POC Glucose 109 H 144 H Hemoglobin A1c Magnesium Total Creatine Kinase Urine WBC (Auto) Crossmatch 01/06/17 01/06/17 01/06/17 03:11 03:11 03:38 WBC 18.0 H RBC 3.26 L Hgb 8.4 L Hct 26.8 L MCV 82 L MCH 26 L MCHC RDW 19.4 H Lymph % (Auto) 7.7 L Seg Neutrophils % 87.8 H Seg Neutrophils # 15.8 H PT INR APTT POC ABG pH 7.575 H POC ABG pCO2 26.5 L POC ABG pO2 55 L Sodium 159 H D Potassium 3.4 L Chloride 116.6 H Carbon Dioxide BUN 51 H Glucose 145 H POC Glucose Hemoglobin A1c Magnesium Total Creatine Kinase Urine WBC (Auto) Crossmatch 01/06/17 01/06/17 05:15 11:44 WBC RBC Hgb Hct MCV MCH MCHC RDW Lymph % (Auto) Seg Neutrophils % Seg Neutrophils # PT INR APTT POC ABG pH POC ABG pCO2 POC ABG pO2 Sodium Potassium Chloride Carbon Dioxide BUN Glucose POC Glucose 157 H 210 H Hemoglobin A1c Magnesium Total Creatine Kinase Urine WBC (Auto) Crossmatch
--- NOTE | 2017-01-06 14:24 | Progress Note ---
Assessment and Plan Assessment and plan: Severe anemia - Patient's H&H on admission was 07/30 and transfused 2 units of blood post transfusion hemoglobin is 8 - GI consulted and recommended PPI no colonoscopy at this time History of ICH - Neurology consult appreciated - With neurology recommendation about anticoagulation, I held Xarelto for now A. fib, status post 2 bioprosthetic valves - held xarelto - Cardiology consult appreciated Sacral decubitus ulcer - Wound care consulted Status post trach, respiratory distress - Duonebs, oxygen support - Pulmonary consult, appreciated Seizure disorder - Patient had seizures overnight - patient was put on keppra and PRN ativan - Neurology consulted Sepsis - patient is on IV Aztreonam and Levaquin - blood culture Resume appropriate home medications DVT prophylaxis - Mechanical, because of bleeding Disposition -Continue inpatient History Interval history: Patient was seen and evaluated this morning, no family member was in the room. Patient is non communicative. Per nursing report he had episodes of seizure overnight, was on keppra IV and Ativan PRN. Hospitalist Physical - Physical exam Narrative exam: Patient is on PEG and trach. The patient appeared well nourished and normally developed. Vital signs as documented. Head exam is unremarkable. No scleral icterus . Neck is without jugular venous distension, thyromegaly, or carotid bruits. Lungs are clear to auscultation. Cardiac exam reveals regular rate and Rhythm. First and second heart sounds normal. No murmurs, rubs or gallops. Abdominal exam reveals in place. Extremities are nonedematous and both femoral and pedal pulses are normal. 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 - Constitutional Vitals: Temp Pulse Resp BP Pulse Ox 98.2 F 85 18 122/77 93 01/06/17 11:37 01/06/17 12:19 01/06/17 11:37 01/06/17 12:19 01/06/17 11:37 General appearance: Present: cachectic Results - Labs CBC & Chem 7: 01/06/17 03:11 01/06/17 03:11 Labs: Laboratory Last Values WBC 18.0 K/mm3 (4.5-11.0) H 01/06/17 03:11 RBC 3.26 M/mm3 (3.65-5.03) L 01/06/17 03:11 Hgb 8.4 gm/dl (11.8-15.2) L 01/06/17 03:11 Hct 26.8 % (35.5-45.6) L 01/06/17 03:11 MCV 82 fl (84-94) L 01/06/17 03:11 MCH 26 pg (28-32) L 01/06/17 03:11 MCHC 32 % (32-34) 01/06/17 03:11 RDW 19.4 % (13.2-15.2) H 01/06/17 03:11 Plt Count 287 K/mm3 (140-440) 01/06/17 03:11 Lymph % (Auto) 7.7 % (13.4-35.0) L 01/06/17 03:11 [place] % (Auto) 4.3 % (0.0-7.3) 01/06/17 03:11 Eos % (Auto) 0.0 % (0.0-4.3) 01/06/17 03:11 Baso % (Auto) 0.2 % (0.0-1.8) 01/06/17 03:11 Lymph # 1.4 K/mm3 (1.2-5.4) 01/06/17 03:11 [place] # 0.8 K/mm3 (0.0-0.8) 01/06/17 03:11 Eos # 0.0 K/mm3 (0.0-0.4) 01/06/17 03:11 Baso # 0.0 K/mm3 (0.0-0.1) 01/06/17 03:11 Seg Neutrophils % 87.8 % (40.0-70.0) H 01/06/17 03:11 Seg Neutrophils # 15.8 K/mm3 (1.8-7.7) H 01/06/17 03:11 PT 18.1 Sec. (12.2-14.9) H 01/04/17 07:31 INR 1.42 (0.87-1.13) H 01/04/17 07:31 APTT 59.9 Sec. (24.2-36.6) H 01/04/17 07:31 POC ABG pH 7.575 (7.35-7.45) H 01/06/17 03:38 POC ABG pCO2 26.5 (35-45) L 01/06/17 03:38 POC ABG pO2 55 (80-105) L 01/06/17 03:38 POC ABG HCO3 24.6 01/06/17 03:38 POC ABG Total CO2 25 01/06/17 03:38 POC ABG O2 Sat 93 01/06/17 03:38 POC ABG Base Excess 3 01/06/17 03:38 FiO2 50 % 01/06/17 03:38 Sodium 159 mmol/L (137-145) H D 01/06/17 03:11 Potassium 3.4 mmol/L (3.6-5.0) L 01/06/17 03:11 Chloride 116.6 mmol/L (98-107) H 01/06/17 03:11 Carbon Dioxide 23 mmol/L (22-30) 01/06/17 03:11 Anion Gap 23 mmol/L 01/06/17 03:11 BUN 51 mg/dL (9-20) H 01/06/17 03:11 Creatinine 1.3 mg/dL (0.8-1.5) 01/06/17 03:11 Estimated GFR > 60 ml/min 01/06/17 03:11 BUN/Creatinine Ratio 39 % 01/06/17 03:11 Glucose 145 mg/dL (75-100) H 01/06/17 03:11 POC Glucose 210 (70-105) H 01/06/17 11:44 Hemoglobin A1c 6.8 % (4-6) H 01/04/17 12:01 Lactic Acid 1.30 mmol/L (0.7-2.0) 01/04/17 07:21 Calcium 8.8 mg/dL (8.4-10.2) 01/06/17 03:11 Magnesium 2.60 mg/dL (1.7-2.3) H 01/04/17 07:31 Total Creatine Kinase 26 units/L (55-170) L 01/04/17 07:31 Urine Color Yellow (Yellow) 01/04/17 Unknown Urine Turbidity Clear (Clear) 01/04/17 Unknown Urine pH 5.0 (5.0-7.0) 01/04/17 Unknown Ur Specific [place] 1.014 (1.003-1.030) 01/04/17 Unknown Urine Protein 30 mg/dl mg/dL (Negative) 01/04/17 Unknown Urine Glucose (UA) Neg mg/dL (Negative) 01/04/17 Unknown Urine Ketones Neg mg/dL (Negative) 01/04/17 Unknown Urine Blood Sm (Negative) 01/04/17 Unknown Urine Nitrite Neg (Negative) 01/04/17 Unknown Ur Reducing Substances Not Reportable 01/04/17 Unknown Urine Bilirubin Neg (Negative) 01/04/17 Unknown Urine Ictotest Not Reportable 01/04/17 Unknown Urine Urobilinogen < 2.0 mg/dL (<2.0) 01/04/17 Unknown Ur Leukocyte Esterase Lg (Negative) 01/04/17 Unknown Urine WBC (Auto) > 182.0 /HPF (0.0-6.0) H 01/04/17 Unknown Urine RBC (Auto) 58.0 /HPF (0.0-6.0) 01/04/17 Unknown Urine Bacteria (Auto) 4+ /HPF (Negative) 01/04/17 Unknown Urine WBC Clumps 3+ /HPF 01/04/17 Unknown Urine Mucus Few /HPF 01/04/17 Unknown Urine Yeast (Budding) 1+ /HPF 01/04/17 Unknown Blood Type B POSITIVE 01/04/17 09:03 Antibody Screen Negative 01/04/17 09:03 Crossmatch See Detail 01/04/17 09:03
[2017-01-06 15:36] LABS: ISTAT Base Excess 3; ISTAT HCO3 24.9; ISTAT PH 7.557 (7.35-7.45); ISTAT PO2 66 (80-105); ISTAT SO2 96; ISTAT TCO2 26
[2017-01-06] MEDS: CARDIZEM FEEDTUBE SCH ×2 (16:47→17:17)
--- NOTE | 2017-01-06 17:02 | Consultation ---
History of Present Illness - Reason for Consult Consult date: 01/06/17 sepsis Requesting physician: RUSTY CARVAJAL - History of Present Illness 61 years old male with history of intracerebral hemorrhage s/p craniotomy and VPS placement, s/p bioprostetic valves, A fib on anticoagulation, hypertension, s/p PEG tube and trach; admitted on 01/04/2017 due to be found anemic. Patient is non verbal, history taken from review of records. In the emergency room, initial temperature was 99.2 which then went to 101. Heart rate 87. Blood pressure 113/78 which then went to 86/51. Initial white count 16.4. Initial hemoglobin 6.2. Platelets 251. Creatinine 1.2. Lactic acid 1.3. Urinalysis shows large leukocyte esterase and [address] of the chest showed left hydronephrosis with proximal hydroureter. CT showed Bilateral infiltrates with pulmonary emphysematous changes. Mild middle mediastinal lymph nodes. CT of the head show a subacute craniotomy, encephalomyelitis of the cerebellopontine, prominent fourth ventricle, right frontal VPS. 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 denies: smoking, alcohol abuse, prescription drug abuse, IV drug use Family history: no significant family history Medications and Allergies Allergies Allergy/AdvReac Type Severity Reaction Status Date / Time latex Allergy Unknown Verified 01/04/17 09:05 Penicillins Allergy Unknown Verified 01/04/17 09:05 vancomycin Allergy Unknown Verified 01/04/17 09:05 Home Medications Medication Instructions Recorded Confirmed Last Taken Type Acetaminophen [Tylenol Extra 500 mg FEEDTUBE QID PRN 01/04/17 01/04/17 Unknown History Strength] Amantadine HCl [Amantadine] 150 mg FEEDTUBE BID 01/04/17 01/04/17 Unknown History Aspirin BABY CHEW TAB 81 mg FEEDTUBE DAILY 01/04/17 01/04/17 Unknown History Budesonide [Pulmicort] 0.5 mg IH Q12HR 01/04/17 01/04/17 Unknown History Cetirizine HCl [All Day Allergy] 10 mg FEEDTUBE DAILY 01/04/17 01/04/17 Unknown History Digoxin [Lanoxin] 0.25 mg FEEDTUBE DAILY 01/04/17 01/04/17 Unknown History Diltiazem [CarDIZEM] 30 mg FEEDTUBE DAILY 01/04/17 01/04/17 Unknown History FLUoxetine [PROzac] 20 mg FEEDTUBE QDAY 01/04/17 01/04/17 Unknown History Ferrous Sulfate 7.5 ml FEEDTUBE BID 01/04/17 01/04/17 Unknown History Hyoscyamine Sulfate [Hyoscyamine 0.125 mg FEEDTUBE Q4H PRN 01/04/17 01/04/17 Unknown History Rapdis 0.125 mg] Insulin Aspart [Novolog Flexpen] 0 unit SQ BID 01/04/17 01/04/17 Unknown History Insulin Detemir [Levemir] 5 units SUB-Q QHS 01/04/17 01/04/17 Unknown History Ipratropium/Albuterol Sulfate 1 ampul IH Q4HR 01/04/17 01/04/17 Unknown History [DUONEB *Not for PRN Use*] LORazepam [Ativan] 1 mg FEEDTUBE BID PRN 01/04/17 01/04/17 Unknown History Metoprolol [Lopressor] 25 mg FEEDTUBE BID 01/04/17 01/04/17 Unknown History Ondansetron [Zofran Oral Liq] 4 mg FEEDTUBE Q6HR PRN 01/04/17 01/04/17 Unknown History Pantoprazole Sodium 40 mg FEEDTUBE DAILY 01/04/17 01/04/17 Unknown History Rivaroxaban [Xarelto] 20 mg FEEDTUBE QHS 01/04/17 01/04/17 Unknown History guaiFENesin [Guaifenesin] 100 mg FEEDTUBE BID PRN 01/04/17 01/04/17 Unknown History traZODone [Desyrel] 25 mg FEEDTUBE QHS 01/04/17 01/04/17 Unknown History Active Meds: Active Medications Acetaminophen (Tylenol) 650 mg FEEDTUBE Q4H PRN PRN Reason: Pain, Mild (1-3) Last Admin: 01/06/17 06:58 Dose: 650 mg Albuterol/Ipratropium (Duoneb *Not For Prn Use*) 1 ampul IH Q6HRT [facility] Last Admin: 01/06/17 14:27 Dose: 1 ampul Amantadine HCl (Symmetrel) 150 mg FEEDTUBE BID [facility] Last Admin: 01/06/17 09:29 Dose: 150 mg Lipase/Protease/Amylase (Pancreaze Dr 10,500 Unit) 1 each FEEDTUBE PRN PRN PRN Reason: For Clogged Feeding Tube Budesonide (Pulmicort) 0.5 mg IH Q12HRT [facility] Last Admin: 01/06/17 10:21 Dose: 0.5 mg Dextrose (D50w (25gm) Syringe) 50 ml IV PRN PRN PRN Reason: Hypoglycemia Digoxin (Lanoxin) 0.25 mg FEEDTUBE DAILY [facility] Last Admin: 01/06/17 12:18 Dose: 0.25 mg Diltiazem HCl (Cardizem) 30 mg FEEDTUBE DAILY [facility] Last Admin: 01/05/17 09:14 Dose: 30 mg Ferrous Sulfate (Ferrous Sulfate) 450 mg PO QDAY [facility] Last Admin: 01/06/17 09:12 Dose: 450 mg Fluoxetine HCl (Prozac) 20 mg FEEDTUBE QDAY [facility] Last Admin: 01/06/17 09:11 Dose: 20 mg Guaifenesin (Robitussin) 100 mg FEEDTUBE BID PRN PRN Reason: Cough Hyoscyamine (Levsin Sl) 0.125 mg SL Q4H PRN PRN Reason: Spasms Levofloxacin/Dextrose (Levaquin 750mg/150ml) 750 mg in 150 mls @ 100 mls/hr IV Q24HR [facility] PRN Reason: Protocol Last Admin: 01/06/17 09:11 Dose: 100 mls/hr Sodium Chloride (Nacl 0.9% 1000 Ml) 1,000 mls @ 125 mls/hr IV DIRECT [facility] Last Admin: 01/06/17 14:00 Dose: 125 mls/hr Aztreonam (Azactam/Ns 2 Gm/100 Ml) 2 gm in 100 mls @ 100 mls/hr IV Q6HR [facility] Last Admin: 01/06/17 12:28 Dose: 100 mls/hr Levetiracetam (Keppra 1,000 Mg/Ns 0.75% 100ml) 1,000 mg in 100 mls @ 400 mls/ hr IV Q12H [facility] Last Admin: 01/06/17 11:41 Dose: 400 mls/hr Insulin Aspart (Novolog) 0 units SUB-Q Q6HR [facility] PRN Reason: Protocol Last Admin: 01/06/17 13:57 Dose: 4 units Lorazepam (Ativan) 1 mg FEEDTUBE BID PRN PRN Reason: Agitation Last Admin: 01/05/17 09:16 Dose: 1 mg Lorazepam (Ativan) 2 mg IV Q4H PRN PRN Reason: Agitation Last Admin: 01/06/17 11:57 Dose: 2 mg Metoprolol Tartrate (Lopressor) 25 mg FEEDTUBE BID [facility] Last Admin: 01/06/17 12:19 Dose: 25 mg Pantoprazole Sodium (Protonix) 40 mg PO DAILY [facility] Last Admin: 01/06/17 09:12 Dose: 40 mg Simple Syrup (Simple Syrup) 15 ml FEEDTUBE PRN PRN PRN Reason: Hypoglycemia Simple Syrup (Simple Syrup) 30 ml FEEDTUBE PRN PRN PRN Reason: Hypoglycemia Sodium Bicarbonate (Sodium Bicarbonate) 325 mg FEEDTUBE PRN PRN PRN Reason: For Clogged Feeding Tube Trazodone HCl (Desyrel) 25 mg PO QHS [facility] Last Admin: 01/05/17 21:48 Dose: 25 mg Review of Systems ROS unobtainable: due to mental status All systems: negative Physical Examination - Physical Exam Narrative exam: General appearance: lethargic non verbal Eyes: anicteric sclerae, moist conjunctivae HENT: Atraumatic; oropharynx limited Neck: Trachea with thick green secretion Lungs: erika rhonchi CV: tachy Abdomen: Soft, TTP diffusely + PEG Extremities: contracted Skin: Normal temperature, turgor and texture; no rash, ulcers or subcutaneous nodules Psych: non verbal Neuro: non verbal no Moving all extermities Lines: No CVL / PICC - Constitutional Vitals: Vital Signs Temp Pulse Resp BP Pulse Ox 100.2 F H 77 19 102/49 94 01/06/17 16:06 01/06/17 16:06 01/06/17 16:06 01/06/17 16:06 01/06/17 16:06 Temperature -Last 24 Hours Temperature 100.2 F Temperature 98.2 F Temperature 99.4 F Temperature 101.4 F Temperature 98.9 F Temperature 99.1 F Results - Labs CBC & Chem 7: 01/06/17 03:11 01/06/17 03:11 Labs: Abnormal lab results 01/05/17 01/05/17 01/05/17 Range/Units 17:00 20:38 21:36 WBC (4.5-11.0) K/mm3 RBC (3.65-5.03) M/mm3 Hgb 7.9 L (11.8-15.2) gm/dl Hct 25.4 L (35.5-45.6) % MCV (84-94) fl MCH (28-32) pg RDW (13.2-15.2) % Lymph % (Auto) (13.4-35.0) % Seg Neutrophils % (40.0-70.0) % Seg Neutrophils # (1.8-7.7) K/mm3 POC ABG pH (7.35-7.45) POC ABG pCO2 (35-45) POC ABG pO2 (80-105) Sodium (137-145) mmol/L Potassium (3.6-5.0) mmol/L Chloride (98-107) mmol/L BUN (9-20) mg/dL Glucose (75-100) mg/dL POC Glucose 190 H 109 H (70-105) 01/06/17 01/06/17 01/06/17 Range/Units 02:51 03:11 03:11 WBC 18.0 H (4.5-11.0) K/mm3 RBC 3.26 L (3.65-5.03) M/mm3 Hgb 8.4 L (11.8-15.2) gm/dl Hct 26.8 L (35.5-45.6) % MCV 82 L (84-94) fl MCH 26 L (28-32) pg RDW 19.4 H (13.2-15.2) % Lymph % (Auto) 7.7 L (13.4-35.0) % Seg Neutrophils % 87.8 H (40.0-70.0) % Seg Neutrophils # 15.8 H (1.8-7.7) K/mm3 POC ABG pH (7.35-7.45) POC ABG pCO2 (35-45) POC ABG pO2 (80-105) Sodium 159 H D (137-145) mmol/L Potassium 3.4 L (3.6-5.0) mmol/L Chloride 116.6 H (98-107) mmol/L BUN 51 H (9-20) mg/dL Glucose 145 H (75-100) mg/dL POC Glucose 144 H (70-105) 01/06/17 01/06/17 01/06/17 Range/Units 03:38 05:15 11:44 WBC (4.5-11.0) K/mm3 RBC (3.65-5.03) M/mm3 Hgb (11.8-15.2) gm/dl Hct (35.5-45.6) % MCV (84-94) fl MCH (28-32) pg RDW (13.2-15.2) % Lymph % (Auto) (13.4-35.0) % Seg Neutrophils % (40.0-70.0) % Seg Neutrophils # (1.8-7.7) K/mm3 POC ABG pH 7.575 H (7.35-7.45) POC ABG pCO2 26.5 L (35-45) POC ABG pO2 55 L (80-105) Sodium (137-145) mmol/L Potassium (3.6-5.0) mmol/L Chloride (98-107) mmol/L BUN (9-20) mg/dL Glucose (75-100) mg/dL POC Glucose 157 H 210 H (70-105) 01/06/17 Range/Units 15:24 WBC (4.5-11.0) K/mm3 RBC (3.65-5.03) M/mm3 Hgb (11.8-15.2) gm/dl Hct (35.5-45.6) % MCV (84-94) fl MCH (28-32) pg RDW (13.2-15.2) % Lymph % (Auto) (13.4-35.0) % Seg Neutrophils % (40.0-70.0) % Seg Neutrophils # (1.8-7.7) K/mm3 POC ABG pH 7.557 H (7.35-7.45) POC ABG pCO2 28.0 L (35-45) POC ABG pO2 66 L (80-105) Sodium (137-145) mmol/L Potassium (3.6-5.0) mmol/L Chloride (98-107) mmol/L BUN (9-20) mg/dL Glucose (75-100) mg/dL POC Glucose (70-105) Assessment and Plan Assessment: 1) Sepsis: Present on admission, manifested by fever, tachycardia, hypotension, leukocytosis. [id number] +/- pneumonia 2) Complicated UTI: CT showed left hydro and prox hydro ureter 3) Pneumonia: CT showed bilateral infiltrates with pulmonary emphysematous changes 4) History of ICH s/p craniotomy and VPS 5) Bioprostetic valves and A fib on anticoagulation 6) Stage II sacral - not infected 7) Anemia - severe 8) Penicillin/vanco allergies Plan: -follow-up blood cultures, urine culture -obtain respiratory cultures, C-reactive protein (CRP) -continue aztreonam and levaquin for now -cannot do vancomycin due to allergy, if Staph grows from blood will do daptomycin, if it is from sputum will do clindamycin -wound care for sacral dec -contact isolation in view of high risk for MDR organisms -poor prognosis Thank you Dr Carvajal for your consultation, will follow up with you. Shagufta Verdugo MD Infectious Diseases Specialist [facility] ([facility] M [phone] O [phone]
[2017-01-06] MEDS: ATIVAN FEEDTUBE PRN (23:21)
[2017-01-06] MEDS: DESYREL PO SCH (23:21)
[2017-01-07] MEDS: NOVOLOG SUB-Q SCH ×4 (00:27→17:31)
[2017-01-07] MEDS: DUONEB *Not for PRN Use IH SCH ×4 (02:43→20:05)
[2017-01-07] MEDS: AZACTAM/NS 2 GM/100 ML 2 GM/100 ML VIAL IV SCH (06:38)
[2017-01-07 07:24] LABS: Basophils % (Auto) 0.2 % (0.0-1.8); Eosinophils % (Auto) 1.1 % (0.0-4.3); Hematocrit 24.8 % (35.5-45.6); Hemoglobin 7.8 gm/dl (11.8-15.2); Mean Corpuscular HGB Conc 32 % (32-34); Mean Corpuscular Hemoglobin 26 pg (28-32); Mean Corpuscular Volume 83 fl (84-94); Platelet Count 215 K/mm3 (140-440); Red Blood Count 2.99 M/mm3 (3.65-5.03); Red Cell Distribution Width 19.9 % (13.2-15.2); White Blood Count 19.3 K/mm3 (4.5-11.0)
[2017-01-07 07:39] LABS: Anion Gap 17 mmol/L; BUN/Creatinine Ratio 39; Blood Urea Nitrogen 47 mg/dL (9-20); Carbon Dioxide 25 mmol/L (22-30); Chloride 125.9 mmol/L (98-107); Glucose 169 mg/dL (75-100)
[2017-01-07 07:42] LABS: Sodium 165 mmol/L (137-145)
[2017-01-07] MEDS: TYLENOL FEEDTUBE PRN ×2 (07:53→17:29)
[2017-01-07] MEDS: PULMICORT IH SCH ×2 (09:05→20:05)
[2017-01-07] MEDS: FERROUS SULFATE PO SCH (09:45)
[2017-01-07] MEDS: LOPRESSOR FEEDTUBE SCH ×2 (09:48→21:40)
[2017-01-07] MEDS: LANOXIN FEEDTUBE SCH (09:48)
[2017-01-07] MEDS: PROzac FEEDTUBE SCH (09:48)
[2017-01-07] MEDS: PROTONIX PO SCH (09:48)
[2017-01-07] MEDS: CARDIZEM FEEDTUBE SCH (09:49)
[2017-01-07] MEDS: LEVAQUIN 750MG/150ML 750 MG/150 ML BAG IV SCH (09:58)
[2017-01-07] MEDS: KEPPRA 1,000 MG/NS 0.75% 100ML 1,000 MG/100 ML BAG IV SCH ×2 (09:59→21:36)
[2017-01-07] MEDS: SYMMETREL FEEDTUBE SCH ×2 (10:05→21:41)
[2017-01-07] MEDS: PROTONIX FEEDTUBE SCH (10:10)
--- NOTE | 2017-01-07 10:31 | Progress Note ---
Assessment and Plan Assessment: Sepsis / complicated UTI / bilateral PNA Bleeding from trach Severe anemia - s/p PRBC; no plans to scope at this time per GI Chronic atrial fibrillation with moderate ventricular response - was on Xarelto prior to admission; Xarelto currently held H/o bioprostetic MV and AV H/o ICH s/p craniotomy and [employer]FOR[employer] LAMINATOR shunt 04/2016 at [facility] Chronic respiratory failure s/p trach Sacral decubitus ulcer Plan: Currently stable cardiac status. Echo from 04/2016 at [facility] reviewed - EF 45-50%, bioprosthetic MV, bioprosthetic AV , moderate LVH, moderately dilated LA, moderately dilated RA, small pericardial effusion, mild MVR, mild TR, smoke in the LA, no thrombus seen in either LA appendage or LA cavity, catheter seen in RA/SVC, mildly reduced RV systolic function, no obvious vegitation. Awaiting neurological recommendation regarding safety of resuming anticoagulation from the cerebrovascular hemorrhagic perspective. Pending EEG. The patient has been seen in conjunction with Dr. JORDAN Dao who agrees with the assessment and plan of care. Subjective Date of service: 01/07/17 Principal diagnosis: chronic AFib; h/o ICH; sepsis; anemia Interval history: resting in bed, not responding to commands, responds to noxious stimuli per primary RN. JAVIER. Objective Last Vital Signs Temp 101.0 F H 01/07/17 07:42 Pulse 114 H 01/07/17 09:48 Resp 36 H 01/07/17 09:22 BP 118/58 01/07/17 09:49 Pulse Ox 99 01/07/17 09:03 - Physical Examination General: No Apparent Distress HEENT: Positive: Normocephaly Neck: Positive: neck supple, Carotid Upstroke. Negative: JVD/HJR, Bruit (2+) Cardiac: Positive: Reg Rate and Rhythm, S1/S2 Lungs: Positive: Decreased Breath Sounds Neuro: Positive: Other (nonverbal apparent tremulousness of upper extremities) Abdomen: Positive: Soft. Negative: Tender Skin: Negative: Rash Musculoskeletal: other (no joint swelling) Extremities: Absent: edema (upper extremities pulses intact pedal pulses diminished) - Labs and Meds CBC 01/07/17 Range/Units 06:47 WBC 19.3 H (4.5-11.0) K/mm3 RBC 2.99 L (3.65-5.03) M/mm3 Hgb 7.8 L (11.8-15.2) gm/dl Hct 24.8 L (35.5-45.6) % Plt Count 215 (140-440) K/mm3 Lymph # 1.5 (1.2-5.4) K/mm3 [place] # 0.6 (0.0-0.8) K/mm3 Eos # 0.2 (0.0-0.4) K/mm3 Baso # 0.0 (0.0-0.1) K/mm3 Comprehensive Metabolic Panel 01/07/17 Range/Units 06:47 Sodium 165 H* (137-145) mmol/L Potassium 3.0 L (3.6-5.0) mmol/L Chloride 125.9 H (98-107) mmol/L Carbon Dioxide 25 (22-30) mmol/L BUN 47 H (9-20) mg/dL Creatinine 1.2 (0.8-1.5) mg/dL Glucose 169 H (75-100) mg/dL Calcium 8.0 L (8.4-10.2) mg/dL
--- NOTE | 2017-01-07 10:50 | Ultrasound Report ---
Renal ultrasound: Fever and hydronephrosis. The right renal length is 12.3 cm and the left renal length is 13.6 cm. The echogenicity of both kidneys is generally unremarkable. There is mild hydronephrosis of the right kidney. No calculus and no mass noted. There is moderate hydronephrosis in the left kidney. The renal pelvis also appears to be dilated the ureter cannot be clearly visualized. Imaging of the urinary bladder demonstrates a mild degree of echogenic material with no shadowing. The bladder is not otherwise remarkable. Impression: 1. Bilateral hydronephrosis significantly greater on the left. 2. Bladder sludge.
[2017-01-07] MEDS: AZACTAM 2 GM in NACL 0.9% 20 ML IV SCH ×2 (12:10→18:08)
[2017-01-07] MEDS ORDERED: POTASSIUM CHLORIDE FEEDTUBE ONE (13:14)
--- NOTE | 2017-01-07 13:32 | Progress Note ---
Assessment and Plan Imp: 1. UTI/Hydronephrosis 2. Sepsis 2/2 #1 3. Pulmonary edema, suspect may be non-cardiogenic 2/2 above 4. A/C respiratory failure 5. S/p Trach 6. OP dysphagia, s/p PEG 7. Severe hypernatremia 8. Seizures Rec: 1. ABX per ID; f/u cultures 2. Agree with urology consult given renal US findings 3. Free water deficit is close to 8 liters including insensible losses; receiving 900mL water via PEG daily; would stop NS and start D5W at 150mL/hour to correct deficit over 48 hours 4. K repleted already 5. Pulm edema on CXR as per #3 above; would check Echo; repeat CXR in AM 6. Aspiration precautions 7. SCDs Complex decision-making; no family present Subjective Date of service: 01/07/17 Principal diagnosis: chronic AFib; h/o ICH; sepsis; anemia Interval history: No events. Shaking currently but subsides on its own and seems to be more related to agitation than seizures. Eyes are closed, does not answer questions or follow commands. On 40% FiO2 via T-piece. Cannot obtain hx. Active Medications Acetaminophen (Tylenol) 650 mg FEEDTUBE Q4H PRN PRN Reason: Pain, Mild (1-3) Last Admin: 01/07/17 07:53 Dose: 650 mg Albuterol/Ipratropium (Duoneb *Not For Prn Use*) 1 ampul IH Q6HRT [facility] Last Admin: 01/07/17 09:04 Dose: 1 ampul Amantadine HCl (Symmetrel) 150 mg FEEDTUBE BID [facility] Last Admin: 01/07/17 10:05 Dose: 150 mg Lipase/Protease/Amylase (Pancreaze Dr 10,500 Unit) 1 each FEEDTUBE PRN PRN PRN Reason: For Clogged Feeding Tube Budesonide (Pulmicort) 0.5 mg IH Q12HRT [facility] Last Admin: 01/07/17 09:05 Dose: 0.5 mg Dextrose (D50w (25gm) Syringe) 50 ml IV PRN PRN PRN Reason: Hypoglycemia Digoxin (Lanoxin) 0.25 mg FEEDTUBE DAILY [facility] Last Admin: 01/07/17 09:48 Dose: 0.25 mg Diltiazem HCl (Cardizem) 30 mg FEEDTUBE DAILY [facility] Last Admin: 01/07/17 09:49 Dose: 30 mg Ferrous Sulfate (Ferrous Sulfate) 450 mg PO QDAY [facility] Last Admin: 01/07/17 09:45 Dose: 450 mg Fluoxetine HCl (Prozac) 20 mg FEEDTUBE QDAY [facility] Last Admin: 01/07/17 09:48 Dose: 20 mg Guaifenesin (Robitussin) 100 mg FEEDTUBE BID PRN PRN Reason: Cough Last Admin: 01/06/17 23:21 Dose: 100 mg Hyoscyamine (Levsin Sl) 0.125 mg SL Q4H PRN PRN Reason: Spasms Levofloxacin/Dextrose (Levaquin 750mg/150ml) 750 mg in 150 mls @ 100 mls/hr IV Q24HR [facility] PRN Reason: Protocol Last Admin: 01/07/17 09:58 Dose: 100 mls/hr Levetiracetam (Keppra 1,000 Mg/Ns 0.75% 100ml) 1,000 mg in 100 mls @ 400 mls/ hr IV Q12H [facility] Stop: 01/07/17 23:59 Last Admin: 01/07/17 09:59 Dose: 400 mls/hr Aztreonam 2 gm/ Sodium (Chloride) 20 mls @ 20 mls/10 min IV Q6HR [facility] Dextrose (D5w) 1,000 mls @ 150 mls/hr IV DIRECT [facility] Insulin Aspart (Novolog) 0 units SUB-Q Q6HR [facility] PRN Reason: Protocol Last Admin: 01/07/17 13:23 Dose: Not Given Levetiracetam (Keppra) 1,000 mg FEEDTUBE BID [facility] Lorazepam (Ativan) 1 mg FEEDTUBE BID PRN PRN Reason: Agitation Last Admin: 01/06/17 23:21 Dose: 1 mg Lorazepam (Ativan) 2 mg IV Q4H PRN PRN Reason: Agitation Last Admin: 01/06/17 11:57 Dose: 2 mg Metoprolol Tartrate (Lopressor) 25 mg FEEDTUBE BID [facility] Last Admin: 01/07/17 09:48 Dose: 25 mg Pantoprazole (Protonix) 40 mg FEEDTUBE DAILY [facility] Simple Syrup (Simple Syrup) 15 ml FEEDTUBE PRN PRN PRN Reason: Hypoglycemia Simple Syrup (Simple Syrup) 30 ml FEEDTUBE PRN PRN PRN Reason: Hypoglycemia Sodium Bicarbonate (Sodium Bicarbonate) 325 mg FEEDTUBE PRN PRN PRN Reason: For Clogged Feeding Tube Trazodone HCl (Desyrel) 25 mg PO QHS [facility] Last Admin: 01/06/17 23:21 Dose: 25 mg Objective Vital Signs - 12hr 01/07/17 01/07/17 01/07/17 02:00 02:44 02:56 Temperature Pulse Rate Pulse Rate [ 80 78 Anterior Bilateral Throughout] Respiratory Rate Respiratory 18 15 Rate [Anterior Bilateral Throughout] Blood Pressure O2 Sat by Pulse Oximetry O2 Sat by Pulse 98 Oximetry [ Assessment] 01/07/17 01/07/17 01/07/17 03:30 03:33 04:58 Temperature 98.5 F 98.5 F Pulse Rate 85 55 L Pulse Rate [ Anterior Bilateral Throughout] Respiratory 16 16 Rate Respiratory Rate [Anterior Bilateral Throughout] Blood Pressure 107/53 92/47 O2 Sat by Pulse 97 100 Oximetry O2 Sat by Pulse Oximetry [ Assessment] 01/07/17 01/07/17 01/07/17 04:59 07:42 07:53 Temperature 101.0 F H Pulse Rate 85 101 H Pulse Rate [ Anterior Bilateral Throughout] Respiratory 24 22 Rate Respiratory Rate [Anterior Bilateral Throughout] Blood Pressure 103/75 O2 Sat by Pulse 100 99 Oximetry O2 Sat by Pulse Oximetry [ Assessment] 01/07/17 01/07/17 01/07/17 09:03 09:22 09:48 Temperature Pulse Rate 114 H Pulse Rate [ 89 96 H Anterior Bilateral Throughout] Respiratory Rate Respiratory 28 H 36 H Rate [Anterior Bilateral Throughout] Blood Pressure 118/58 O2 Sat by Pulse 99 Oximetry O2 Sat by Pulse Oximetry [ Assessment] 01/07/17 09:49 Temperature Pulse Rate Pulse Rate [ Anterior Bilateral Throughout] Respiratory Rate Respiratory Rate [Anterior Bilateral Throughout] Blood Pressure 118/58 O2 Sat by Pulse Oximetry O2 Sat by Pulse Oximetry [ Assessment] Constitutional: no acute distress, alert Eyes: non-icteric ENT: oropharynx dry Neck: supple, other (trach midline) Effort: mildly labored Ascultation: Bilateral: other (coarse BS bilaterally) Cardiovascular: other (tachy, ir/ir, no mrg) Gastrointestinal: normoactive bowel sounds, soft, non-tender, non-distended Integumentary: normal Extremities: no cyanosis, no edema Neurologic: other (moves upper extremities, does not open eyes or follow commands) Psychiatric: other (unable to assess) CBC and BMP: 01/07/17 06:47 01/07/17 06:47 ABG, PT/INR, D-dimer: ABG POC ABG pH 7.557 (7.35-7.45) H 01/06/17 15:24 POC ABG pCO2 28.0 (35-45) L 01/06/17 15:24 POC ABG pO2 66 (80-105) L 01/06/17 15:24 POC ABG HCO3 24.9 01/06/17 15:24 POC ABG Total CO2 26 01/06/17 15:24 POC ABG O2 Sat 96 01/06/17 15:24 PT/INR, D-dimer PT 18.1 Sec. (12.2-14.9) H 01/04/17 07:31 INR 1.42 (0.87-1.13) H 01/04/17 07:31 Abnormal lab findings: Abnormal Labs 01/04/17 01/04/17 01/04/17 07:03 07:21 07:31 WBC 16.4 H RBC 2.48 L Hgb 6.2 L Hct 20.1 L MCV 81 L MCH 25 L MCHC 31 L RDW 19.7 H Lymph % (Auto) Seg Neutrophils % Seg Neutrophils # PT 18.1 H INR 1.42 H APTT 59.9 H POC ABG pH POC ABG pCO2 POC ABG pO2 Sodium Potassium Chloride Carbon Dioxide BUN Glucose POC Glucose 210 H Hemoglobin A1c Calcium Magnesium Total Creatine Kinase C-Reactive Protein Urine WBC (Auto) Crossmatch 01/04/17 01/04/17 01/04/17 07:31 09:03 12:01 WBC RBC Hgb 6.1 L Hct 19.4 L* MCV MCH MCHC RDW Lymph % (Auto) Seg Neutrophils % Seg Neutrophils # PT INR APTT POC ABG pH POC ABG pCO2 POC ABG pO2 Sodium 148 H Potassium Chloride Carbon Dioxide 33 H BUN 80 H Glucose 182 H POC Glucose Hemoglobin A1c Calcium Magnesium 2.60 H Total Creatine Kinase 26 L C-Reactive Protein Urine WBC (Auto) Crossmatch See Detail 01/04/17 01/04/1701/04/17 12:01 16:50 22:46 WBC RBC Hgb Hct MCV MCH MCHC RDW Lymph % (Auto) Seg Neutrophils % Seg Neutrophils # PT INR APTT POC ABG pH POC ABG pCO2 POC ABG pO2 Sodium Potassium Chloride Carbon Dioxide BUN Glucose POC Glucose 217 H 115 H Hemoglobin A1c 6.8 H Calcium Magnesium Total Creatine Kinase C-Reactive Protein Urine WBC (Auto) Crossmatch 01/04/17 01/05/17 01/05/17 Unknown 03:50 04:46 WBC 15.6 H RBC 3.10 L Hgb 8.1 L Hct 24.8 L MCV 80 L MCH 26 L MCHC RDW 19.1 H Lymph % (Auto) 11.4 L Seg Neutrophils % 82.7 H Seg Neutrophils # 12.9 H PT INR APTT POC ABG pH POC ABG pCO2 POC ABG pO2 Sodium Potassium Chloride Carbon Dioxide BUN Glucose POC Glucose 140 H Hemoglobin A1c Calcium Magnesium Total Creatine Kinase C-Reactive Protein Urine WBC (Auto) > 182.0 H Crossmatch 01/05/17 01/05/17 01/05/17 04:46 06:21 09:25 WBC RBC Hgb 8.2 L Hct 26.1 L MCV MCH MCHC RDW Lymph % (Auto) Seg Neutrophils % Seg Neutrophils # PT INR APTT POC ABG pH POC ABG pCO2 POC ABG pO2 Sodium 151 H Potassium Chloride 107.6 H Carbon Dioxide BUN 61 H Glucose 144 H POC Glucose 154 H Hemoglobin A1c Calcium Magnesium Total Creatine Kinase C-Reactive Protein Urine WBC (Auto) Crossmatch 01/05/17 01/05/17 01/05/17 12:05 14:48 17:00 WBC RBC Hgb 8.0 L Hct 25.2 L MCV MCH MCHC RDW Lymph % (Auto) Seg Neutrophils % Seg Neutrophils # PT INR APTT POC ABG pH POC ABG pCO2 POC ABG pO2 Sodium Potassium Chloride Carbon Dioxide BUN Glucose POC Glucose 122 H 190 H Hemoglobin A1c Calcium Magnesium Total Creatine Kinase C-Reactive Protein Urine WBC (Auto) Crossmatch 01/05/17 01/05/17 01/06/17 20:38 21:36 02:51 WBC RBC Hgb 7.9 L Hct 25.4 L MCV MCH MCHC RDW Lymph % (Auto) Seg Neutrophils % Seg Neutrophils # PT INR APTT POC ABG pH POC ABG pCO2 POC ABG pO2 Sodium Potassium Chloride Carbon Dioxide BUN Glucose POC Glucose 109 H 144 H Hemoglobin A1c Calcium Magnesium Total Creatine Kinase C-Reactive Protein Urine WBC (Auto) Crossmatch 01/06/17 01/06/17 01/06/17 03:11 03:11 03:38 WBC 18.0 H RBC 3.26 L Hgb 8.4 L Hct 26.8 L MCV 82 L MCH 26 L MCHC RDW 19.4 H Lymph % (Auto) 7.7 L Seg Neutrophils % 87.8 H Seg Neutrophils # 15.8 H PT INR APTT POC ABG pH 7.575 H POC ABG pCO2 26.5 L POC ABG pO2 55 L Sodium 159 H D Potassium 3.4 L Chloride 116.6 H Carbon Dioxide BUN 51 H Glucose 145 H POC Glucose Hemoglobin A1c Calcium Magnesium Total Creatine Kinase C-Reactive Protein Urine WBC (Auto) Crossmatch 01/06/17 01/06/17 01/06/17 05:15 11:44 15:24 WBC RBC Hgb Hct MCV MCH MCHC RDW Lymph % (Auto) Seg Neutrophils % Seg Neutrophils # PT INR APTT POC ABG pH 7.557 H POC ABG pCO2 28.0 L POC ABG pO2 66 L Sodium Potassium Chloride Carbon Dioxide BUN Glucose POC Glucose 157 H 210 H Hemoglobin A1c Calcium Magnesium Total Creatine Kinase C-Reactive Protein Urine WBC (Auto) Crossmatch 01/06/17 01/06/17 01/07/17 20:37 22:52 06:47 WBC 19.3 H RBC 2.99 L Hgb 7.8 L Hct 24.8 L MCV 83 L MCH 26 L MCHC RDW 19.9 H Lymph % (Auto) 7.7 L Seg Neutrophils % 87.7 H Seg Neutrophils # 16.9 H PT INR APTT POC ABG pH POC ABG pCO2 POC ABG pO2 Sodium Potassium Chloride Carbon Dioxide BUN Glucose POC Glucose 197 H Hemoglobin A1c Calcium Magnesium Total Creatine Kinase C-Reactive Protein 19.70 H Urine WBC (Auto) Crossmatch 01/07/17 01/07/17 01/07/17 06:47 06:50 11:24 WBC RBC Hgb Hct MCV MCH MCHC RDW Lymph % (Auto) Seg Neutrophils % Seg Neutrophils # PT INR APTT POC ABG pH POC ABG pCO2 POC ABG pO2 Sodium 165 H* Potassium 3.0 L Chloride 125.9 H Carbon Dioxide BUN 47 H Glucose 169 H POC Glucose 184 H 141 H Hemoglobin A1c Calcium 8.0 L Magnesium Total Creatine Kinase C-Reactive Protein Urine WBC (Auto) Crossmatch Chest x-ray: report reviewed, image reviewed (bilateral infiltrates)
--- NOTE | 2017-01-07 13:37 | Progress Note ---
Assessment and Plan Assessment and plan: Severe anemia - Patient's H&H on admission was 07/30 and transfused 2 units of blood post transfusion hemoglobin is 7.8 - GI consulted and recommended PPI no colonoscopy at this time History of ICH - Neurology consult appreciated - With neurology recommendation about anticoagulation, I held Xarelto for now A. fib, status post 2 bioprosthetic valves - held xarelto - Cardiology consult appreciated Sacral decubitus ulcer - Wound care consulted Status post trach, respiratory distress - Duonebs, oxygen support - Pulmonary consult, appreciated Seizure disorder - Patient had seizures overnight - patient was put on keppra and PRN ativan - Neurology consulted Sepsis - patient is on IV Aztreonam and Levaquin - blood culture Pneumonia - continue IV antibiotics Hypernatreamia, hyperchloremia - Increase free water Bilateral Hydronephrosis - Urology consulted Resume appropriate home medications DVT prophylaxis - Mechanical, because of bleeding Disposition -Continue inpatient care History Interval history: Patient was seen and evaluated this morning, no family member was in the room. Patient is non communicative. Had episodes of fever. Hospitalist Physical - Physical exam Narrative exam: Patient is on PEG and trach. The patient appeared well nourished and normally developed. Vital signs as documented. Head exam is unremarkable. No scleral icterus . Neck is without jugular venous distension, thyromegaly, or carotid bruits. Lungs are clear to auscultation. Cardiac exam reveals regular rate and Rhythm. First and second heart sounds normal. No murmurs, rubs or gallops. Abdominal exam reveals in place. Extremities are nonedematous and both femoral and pedal pulses are normal. [employer]: Noncommunicative. - Constitutional Vitals: Temp Pulse Resp BP Pulse Ox 101.0 F H 114 H 36 H 118/58 99 01/07/17 07:42 01/07/17 09:48 01/07/17 09:22 01/07/17 09:49 01/07/17 09:03 General appearance: Present: cachectic Results - Labs CBC & Chem 7: 01/07/17 06:47 01/07/17 06:47 Labs: Laboratory Last Values WBC 19.3 K/mm3 (4.5-11.0) H 01/07/17 06:47 RBC 2.99 M/mm3 (3.65-5.03) L 01/07/17 06:47 Hgb 7.8 gm/dl (11.8-15.2) L 01/07/17 06:47 Hct 24.8 % (35.5-45.6) L 01/07/17 06:47 MCV 83 fl (84-94) L 01/07/17 06:47 MCH 26 pg (28-32) L 01/07/17 06:47 MCHC 32 % (32-34) 01/07/17 06:47 RDW 19.9 % (13.2-15.2) H 01/07/17 06:47 Plt Count 215 K/mm3 (140-440) 01/07/17 06:47 Lymph % (Auto) 7.7 % (13.4-35.0) L 01/07/17 06:47 [place] % (Auto) 3.3 % (0.0-7.3) 01/07/17 06:47 Eos % (Auto) 1.1 % (0.0-4.3) 01/07/17 06:47 Baso % (Auto) 0.2 % (0.0-1.8) 01/07/17 06:47 Lymph # 1.5 K/mm3 (1.2-5.4) 01/07/17 06:47 [place] # 0.6 K/mm3 (0.0-0.8) 01/07/17 06:47 Eos # 0.2 K/mm3 (0.0-0.4) 01/07/17 06:47 Baso # 0.0 K/mm3 (0.0-0.1) 01/07/17 06:47 Seg Neutrophils % 87.7 % (40.0-70.0) H 01/07/17 06:47 Seg Neutrophils # 16.9 K/mm3 (1.8-7.7) H 01/07/17 06:47 PT 18.1 Sec. (12.2-14.9) H 01/04/17 07:31 INR 1.42 (0.87-1.13) H 01/04/17 07:31 APTT 59.9 Sec. (24.2-36.6) H 01/04/17 07:31 POC ABG pH 7.557 (7.35-7.45) H 01/06/17 15:24 POC ABG pCO2 28.0 (35-45) L 01/06/17 15:24 POC ABG pO2 66 (80-105) L 01/06/17 15:24 POC ABG HCO3 24.9 01/06/17 15:24 POC ABG Total CO2 26 01/06/17 15:24 POC ABG O2 Sat 96 01/06/17 15:24 POC ABG Base Excess 3 01/06/17 15:24 FiO2 28 % 01/06/17 15:24 Sodium 165 mmol/L (137-145) H* 01/07/17 06:47 Potassium 3.0 mmol/L (3.6-5.0) L 01/07/17 06:47 Chloride 125.9 mmol/L (98-107) H 01/07/17 06:47 Carbon Dioxide 25 mmol/L (22-30) 01/07/17 06:47 Anion Gap 17 mmol/L 01/07/17 06:47 BUN 47 mg/dL (9-20) H 01/07/17 06:47 Creatinine 1.2 mg/dL (0.8-1.5) 01/07/17 06:47 Estimated GFR > 60 ml/min 01/07/17 06:47 BUN/Creatinine Ratio 39 % 01/07/17 06:47 Glucose 169 mg/dL (75-100) H 01/07/17 06:47 POC Glucose 141 (70-105) H 01/07/17 11:24 Hemoglobin A1c 6.8 % (4-6) H 01/04/17 12:01 Lactic Acid 1.30 mmol/L (0.7-2.0) 01/04/17 07:21 Calcium 8.0 mg/dL (8.4-10.2) L 01/07/17 06:47 Magnesium 2.60 mg/dL (1.7-2.3) H 01/04/17 07:31 Total Creatine Kinase 26 units/L (55-170) L 01/04/17 07:31 C-Reactive Protein 19.70 mg/dL (0.00-1.30) H 01/06/17 20:37 Urine Color Yellow (Yellow) 01/04/17 Unknown Urine Turbidity Clear (Clear) 01/04/17 Unknown Urine pH 5.0 (5.0-7.0) 01/04/17 Unknown Ur Specific [place] 1.014 (1.003-1.030) 01/04/17 Unknown Urine Protein 30 mg/dl mg/dL (Negative) 01/04/17 Unknown Urine Glucose (UA) Neg mg/dL (Negative) 01/04/17 Unknown Urine Ketones Neg mg/dL (Negative) 01/04/17 Unknown Urine Blood Sm (Negative) 01/04/17 Unknown Urine Nitrite Neg (Negative) 01/04/17 Unknown Ur Reducing Substances Not Reportable 01/04/17 Unknown Urine Bilirubin Neg (Negative) 01/04/17 Unknown Urine Ictotest Not Reportable 01/04/17 Unknown Urine Urobilinogen < 2.0 mg/dL (<2.0) 01/04/17 Unknown Ur Leukocyte Esterase Lg (Negative) 01/04/17 Unknown Urine WBC (Auto) > 182.0 /HPF (0.0-6.0) H 01/04/17 Unknown Urine RBC (Auto) 58.0 /HPF (0.0-6.0) 01/04/17 Unknown Urine Bacteria (Auto) 4+ /HPF (Negative) 01/04/17 Unknown Urine WBC Clumps 3+ /HPF 01/04/17 Unknown Urine Mucus Few /HPF 01/04/17 Unknown Urine Yeast (Budding) 1+ /HPF 01/04/17 Unknown Blood Type B POSITIVE 01/04/17 09:03 Antibody Screen Negative 01/04/17 09:03 Crossmatch See Detail 01/04/17 09:03 Hypernatremia, leukocytosis, hypokalemia - Imaging and Cardiology Imaging and Cardiology: Renal U/S: bilateral hydronephrosis.
--- NOTE | 2017-01-07 15:29 | Progress Note ---
Assessment and Plan Assessment: 1) Sepsis: NOT better. Agwaudfr-ylidrjerqhpdll-[id number] +/- pneumonia. CRP=19 2) Complicated UTI: with obstructive uropathy -CT showed left hydro and prox hydro ureter 3) Pneumonia: CT showed bilateral infiltrates with pulmonary emphysematous changes 4) History of ICH s/p craniotomy and VPS 5) Bioprostetic valves and A fib on anticoagulation 6) Stage II sacral - not infected 7) Anemia - severe 8) Penicillin/vanco allergies Plan: -needs urology consult soon in view of persistent sepsis despite broad spectrum abx -follow-up blood cultures, urine culture -follow-up respiratory cultures -continue aztreonam and levaquin for now -wound care for sacral dec -contact isolation in view of high risk for MDR organisms -poor prognosis Thank you Dr Meade for your consultation, will follow up with you. Shagufta Verdugo MD Infectious Diseases Specialist [facility], [place] ([facility]) M [phone] O [phone] Subjective Date of service: 01/07/17 Principal diagnosis: chronic AFib; h/o ICH; sepsis; anemia Interval history: Remains non verbal still with fever 101 Microbiology: Blood cultures: 01/05 ngtd Urine cultures: 01/04 GNR Current Antimicrobials: aztreonam Levaquin Previous Antimicrobials: Objective - Exam Narrative Exam: General appearance: lethargic non verbal Eyes: anicteric sclerae, moist conjunctivae HENT: Atraumatic; oropharynx limited Neck: Trachea with thick green secretion Lungs: erika rhonchi CV: tachy Abdomen: Soft, TTP diffusely + PEG Extremities: contracted Skin: Normal temperature, turgor and texture; no rash, ulcers or subcutaneous nodules Psych: non verbal Neuro: non verbal no Moving all extermities Lines: No CVL / PICC - Constitutional Vitals: Vital Signs Temp Pulse Resp BP Pulse Ox 101.0 F H 76 28 H 118/58 99 01/07/17 07:42 01/07/17 14:38 01/07/17 14:38 01/07/17 09:49 01/07/17 09:03 Temperature -Last 24 Hours Temperature 101.0 F Temperature 98.5 F Temperature 98.5 F Temperature 97 F Temperature 98.5 F Temperature 100.2 F - Labs CBC & Chem 7: 01/07/17 06:47 01/07/17 06:47 Labs: Abnormal lab results 01/06/17 01/06/17 01/06/17 Range/Units 15:24 20:37 22:52 WBC (4.5-11.0) K/mm3 RBC (3.65-5.03) M/mm3 Hgb (11.8-15.2) gm/dl Hct (35.5-45.6) % MCV (84-94) fl MCH (28-32) pg RDW (13.2-15.2) % Lymph % (Auto) (13.4-35.0) % Seg Neutrophils % (40.0-70.0) % Seg Neutrophils # (1.8-7.7) K/mm3 POC ABG pH 7.557 H (7.35-7.45) POC ABG pCO2 28.0 L (35-45) POC ABG pO2 66 L (80-105) Sodium (137-145) mmol/L Potassium (3.6-5.0) mmol/L Chloride (98-107) mmol/L BUN (9-20) mg/dL Glucose (75-100) mg/dL POC Glucose 197 H (70-105) Calcium (8.4-10.2) mg/dL C-Reactive Protein 19.70 H (0.00-1.30) mg/dL 01/07/17 01/07/17 01/07/17 Range/Units 06:47 06:47 06:50 WBC 19.3 H (4.5-11.0) K/mm3 RBC 2.99 L (3.65-5.03) M/mm3 Hgb 7.8 L (11.8-15.2) gm/dl Hct 24.8 L (35.5-45.6) % MCV 83 L (84-94) fl MCH 26 L (28-32) pg RDW 19.9 H (13.2-15.2) % Lymph % (Auto) 7.7 L (13.4-35.0) % Seg Neutrophils % 87.7 H (40.0-70.0) % Seg Neutrophils # 16.9 H (1.8-7.7) K/mm3 POC ABG pH (7.35-7.45) POC ABG pCO2 (35-45) POC ABG pO2 (80-105) Sodium 165 H* (137-145) mmol/L Potassium 3.0 L (3.6-5.0) mmol/L Chloride 125.9 H (98-107) mmol/L BUN 47 H (9-20) mg/dL Glucose 169 H (75-100) mg/dL POC Glucose 184 H (70-105) Calcium 8.0 L (8.4-10.2) mg/dL C-Reactive Protein (0.00-1.30) mg/dL 01/07/17 Range/Units 11:24 WBC (4.5-11.0) K/mm3 RBC (3.65-5.03) M/mm3 Hgb (11.8-15.2) gm/dl Hct (35.5-45.6) % MCV (84-94) fl MCH (28-32) pg RDW (13.2-15.2) % Lymph % (Auto) (13.4-35.0) % Seg Neutrophils % (40.0-70.0) % Seg Neutrophils # (1.8-7.7) K/mm3 POC ABG pH (7.35-7.45) POC ABG pCO2 (35-45) POC ABG pO2 (80-105) Sodium (137-145) mmol/L Potassium (3.6-5.0) mmol/L Chloride (98-107) mmol/L BUN (9-20) mg/dL Glucose (75-100) mg/dL POC Glucose 141 H (70-105) Calcium (8.4-10.2) mg/dL C-Reactive Protein (0.00-1.30) mg/dL
[2017-01-07] MEDS ORDERED: ATIVAN ONE (16:16)
[2017-01-07] MEDS ORDERED: ATIVAN IV ONE (16:20)
[2017-01-07] MEDS: DESYREL PO SCH (21:40)
[2017-01-07] MEDS: D5W 1,000 ML IV SCH (21:50)
[2017-01-08] MEDS: AZACTAM 2 GM in NACL 0.9% 20 ML IV SCH ×2 (00:41→05:31)
[2017-01-08] MEDS: NOVOLOG SUB-Q SCH ×4 (00:41→18:56)
[2017-01-08] MEDS: DUONEB *Not for PRN Use IH SCH ×5 (02:17→20:37)
[2017-01-08] MEDS: D5W 1,000 ML IV SCH (04:12)
[2017-01-08 06:32] LABS: Basophils % (Auto) 0.3 % (0.0-1.8); Hematocrit 26.2 % (35.5-45.6); Hemoglobin 8.2 gm/dl (11.8-15.2); Mean Corpuscular HGB Conc 31 % (32-34); Mean Corpuscular Hemoglobin 26 pg (28-32); Mean Corpuscular Volume 84 fl (84-94); Platelet Count 195 K/mm3 (140-440); Red Blood Count 3.14 M/mm3 (3.65-5.03); White Blood Count 17.8 K/mm3 (4.5-11.0)
[2017-01-08 06:49] LABS: Red Cell Distribution Width 20.2 % (13.2-15.2)
[2017-01-08 06:52] LABS: Anion Gap 18 mmol/L; BUN/Creatinine Ratio 42; Blood Urea Nitrogen 46 mg/dL (9-20); Calcium 7.8 mg/dL (8.4-10.2); Carbon Dioxide 24 mmol/L (22-30); Chloride 113.2 mmol/L (98-107); Glucose 158 mg/dL (75-100); Potassium 3.1 mmol/L (3.6-5.0); Sodium 152 mmol/L (137-145)
[2017-01-08] MEDS ORDERED: POTASSIUM CHLORIDE FEEDTUBE ONE (08:00)
[2017-01-08] MEDS: PULMICORT IH SCH ×2 (08:28→20:38)
[2017-01-08] MEDS ORDERED: PROVENTIL IH PRN (08:39)
[2017-01-08] MEDS: FERROUS SULFATE PO SCH (09:56)
[2017-01-08] MEDS: CARDIZEM FEEDTUBE SCH (09:57)
[2017-01-08] MEDS: LANOXIN FEEDTUBE SCH (09:57)
[2017-01-08] MEDS: KEPPRA FEEDTUBE SCH ×2 (09:57→23:07)
[2017-01-08] MEDS: LOPRESSOR FEEDTUBE SCH ×2 (09:58→23:08)
[2017-01-08] MEDS: PROTONIX FEEDTUBE SCH (09:58)
[2017-01-08] MEDS: PROzac FEEDTUBE SCH (09:58)
[2017-01-08] MEDS: LEVAQUIN 750MG/150ML 750 MG/150 ML BAG IV SCH (10:00)
[2017-01-08] MEDS: SYMMETREL FEEDTUBE SCH (10:02)
--- NOTE | 2017-01-08 10:18 | XRay Report ---
AP CHEST 01/08/17 CLINICAL: Followup pulmonary edema. COMPARISON:01/06/17 FINDINGS: The tracheostomy tube is in satisfactory position. A right [employer]ODUCT MANAGEMENT ANALYST shunt tube is unchanged. Continued extensive bilateral multilobar airspace disease with air bronchograms. Slight clearing of the left upper lobe but otherwise unchanged airspace disease. Stable cardiomegaly. The pulmonary vessels are obscured. No pneumothorax. IMPRESSION: Multilobar alveolar pulmonary edema with slight improvement.
--- NOTE | 2017-01-08 11:41 | Progress Note ---
Assessment and Plan Assessment: 1) Sepsis: NOT better. Eywwiwyo-vrbspcghlfrwqk-TEA +/- pneumonia. CRP=19 2) Complicated UTI: with obstructive uropathy -CT showed left hydro and prox hydro ureter. Urine cx + ESBL Kleb 3) Pneumonia: CT showed bilateral infiltrates with pulmonary emphysematous changes 4) History of ICH s/p craniotomy and VPS 5) Bioprostetic valves and A fib on anticoagulation 6) Stage II sacral - not infected 7) Anemia - severe 8) Penicillin/vanco allergies Plan: -stop aztreonam and levaquin -start meropenem under close monitoring in view of ESBL Kleb -needs urology consult - pending -follow-up respiratory cultures -wound care for sacral dec -contact isolation -poor prognosis Thank you Dr Meade for your consultation, will follow up with you. Shagufta Verdugo MD Infectious Diseases Specialist [facility] ([facility]) M [phone] O [phone] Subjective Date of service: 01/08/17 Principal diagnosis: chronic AFib; h/o ICH; sepsis; anemia Interval history: Remains non verbal, fever RESOLVED Microbiology: Blood cultures: 01/05 ngtd Urine cultures: 01/04 ESBL Kleb Tracheal asp: pending Current Antimicrobials: aztreonam Levaquin Previous Antimicrobials: Objective - Exam Narrative Exam: General appearance: lethargic non verbal Eyes: anicteric sclerae, moist conjunctivae HENT: Atraumatic; oropharynx limited Neck: Trachea with thick green secretion Lungs: erika rhonchi CV: tachy Abdomen: Soft, TTP diffusely + PEG Extremities: contracted Skin: Normal temperature, turgor and texture; no rash, ulcers or subcutaneous nodules Psych: non verbal Neuro: non verbal no Moving all extermities Lines: No CVL / PICC - Constitutional Vitals: Vital Signs Temp Pulse Resp BP Pulse Ox 99.3 F 72 20 110/78 100 01/08/17 07:45 01/08/17 09:58 01/08/17 08:41 01/08/17 09:58 01/08/17 08:41 Temperature -Last 24 Hours Temperature 99.3 F Temperature 99.3 F Temperature 99.3 F Temperature 99.2 F Temperature 100.0 F - Labs CBC & Chem 7: 01/08/17 05:34 01/08/17 05:34 Labs: Abnormal lab results 01/07/17 01/07/17 01/08/17 Range/Units 11:24 23:30 05:32 WBC (4.5-11.0) K/mm3 RBC (3.65-5.03) M/mm3 Hgb (11.8-15.2) gm/dl Hct (35.5-45.6) % MCH (28-32) pg MCHC (32-34) % RDW (13.2-15.2) % Lymph % (Auto) (13.4-35.0) % Eos % (Auto) (0.0-4.3) % Eos # (0.0-0.4) K/mm3 Seg Neutrophils % (40.0-70.0) % Seg Neutrophils # (1.8-7.7) K/mm3 Sodium (137-145) mmol/L Potassium (3.6-5.0) mmol/L Chloride (98-107) mmol/L BUN (9-20) mg/dL Glucose (75-100) mg/dL POC Glucose 141 H 205 H 133 H (70-105) Calcium (8.4-10.2) mg/dL Phosphorus (2.5-4.5) mg/dL 01/08/17 01/08/17 Range/Units 05:34 05:34 WBC 17.8 H (4.5-11.0) K/mm3 RBC 3.14 L (3.65-5.03) M/mm3 Hgb 8.2 L (11.8-15.2) gm/dl Hct 26.2 L (35.5-45.6) % MCH 26 L (28-32) pg MCHC 31 L (32-34) % RDW 20.2 H (13.2-15.2) % Lymph % (Auto) 7.8 L (13.4-35.0) % Eos % (Auto) 5.0 H (0.0-4.3) % Eos # 0.9 H (0.0-0.4) K/mm3 Seg Neutrophils % 84.2 H (40.0-70.0) % Seg Neutrophils # 15.0 H (1.8-7.7) K/mm3 Sodium 152 H D (137-145) mmol/L Potassium 3.1 L (3.6-5.0) mmol/L Chloride 113.2 H (98-107) mmol/L BUN 46 H (9-20) mg/dL Glucose 158 H (75-100) mg/dL POC Glucose (70-105) Calcium 7.8 L (8.4-10.2) mg/dL Phosphorus 1.70 L (2.5-4.5) mg/dL
--- NOTE | 2017-01-08 11:42 | Progress Note ---
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 Awaiting neurological recommendation regarding safety of resuming anticoagulation from the cerebrovascular hemorrhagic perspective. Pending EEG. The patient has been seen in conjunction with Dr. JORDAN Dao who agrees with the assessment and plan of care. Subjective Date of service: 01/08/17 Principal diagnosis: chronic AFib; h/o ICH; sepsis; anemia Interval history: resting in bed, nonverbal. NAD. Objective Last Vital Signs Temp 99.3 F 01/08/17 07:45 Pulse 72 01/08/17 09:58 Resp 20 01/08/17 08:41 BP 110/78 01/08/17 09:58 Pulse Ox 100 01/08/17 08:41 - Physical Examination General: No Apparent Distress HEENT: Positive: Normocephaly Neck: Positive: neck supple, Carotid Upstroke. Negative: JVD/HJR, Bruit (2+) Cardiac: Positive: irregularly irregular, S1/S2 Lungs: Positive: Decreased Breath Sounds Neuro: Positive: Other (nonverbal apparent tremulousness of upper extremities) Abdomen: Positive: Soft. Negative: Tender Skin: Negative: Rash Musculoskeletal: other (no joint swelling) Extremities: Absent: edema (upper extremities pulses intact pedal pulses diminished) - Labs and Meds CBC 01/08/17 Range/Units 05:34 WBC 17.8 H (4.5-11.0) K/mm3 RBC 3.14 L (3.65-5.03) M/mm3 Hgb 8.2 L (11.8-15.2) gm/dl Hct 26.2 L (35.5-45.6) % Plt Count 195 (140-440) K/mm3 Lymph # 1.4 (1.2-5.4) K/mm3 [place] # 0.5 (0.0-0.8) K/mm3 Eos # 0.9 H (0.0-0.4) K/mm3 Baso # 0.0 (0.0-0.1) K/mm3 Comprehensive Metabolic Panel 01/08/17 Range/Units 05:34 Sodium 152 H D (137-145) mmol/L Potassium 3.1 L (3.6-5.0) mmol/L Chloride 113.2 H (98-107) mmol/L Carbon Dioxide 24 (22-30) mmol/L BUN 46 H (9-20) mg/dL Creatinine 1.1 (0.8-1.5) mg/dL Glucose 158 H (75-100) mg/dL Calcium 7.8 L (8.4-10.2) mg/dL
--- NOTE | 2017-01-08 12:41 | Progress Note ---
Assessment and Plan bladder distended overr 100ccs had condom consult dictated Subjective Date of service: 01/08/17 Principal diagnosis: chronic AFib; h/o ICH; sepsis; anemia Objective - Constitutional Vitals: Vital Signs - 12hr 01/08/17 01/08/17 01/08/17 02:18 02:30 03:35 Temperature 99.3 F Pulse Rate 42 L Pulse Rate [ 68 Anterior Bilateral Throughout] Respiratory 20 Rate Respiratory 24 22 Rate [Anterior Bilateral Throughout] Blood Pressure 107/53 O2 Sat by Pulse 99 Oximetry O2 Sat by Pulse Oximetry [ Assessment] 01/08/17 01/08/17 01/08/17 07:45 08:25 08:27 Temperature 99.3 F Pulse Rate 45 L Pulse Rate [ 62 Anterior Bilateral Throughout] Respiratory 24 Rate Respiratory 20 Rate [Anterior Bilateral Throughout] Blood Pressure 109/55 O2 Sat by Pulse 100 100 Oximetry O2 Sat by Pulse Oximetry [ Assessment] 01/08/17 01/08/17 01/08/17 08:37 08:41 09:57 Temperature Pulse Rate 72 Pulse Rate [ 89 Anterior Bilateral Throughout] Respiratory Rate Respiratory 20 Rate [Anterior Bilateral Throughout] Blood Pressure 110/78 O2 Sat by Pulse 100 Oximetry O2 Sat by Pulse 100 Oximetry [ Assessment] 01/08/17 09:58 Temperature Pulse Rate 72 Pulse Rate [ Anterior Bilateral Throughout] Respiratory Rate Respiratory Rate [Anterior Bilateral Throughout] Blood Pressure 110/78 O2 Sat by Pulse Oximetry O2 Sat by Pulse Oximetry [ Assessment] General appearance: Present: mild distress - Neck Neck: other (trach ) - Respiratory Respiratory effort: labored Extremities: abnormal - Gastrointestinal General gastrointestinal: Present: non-tender - Labs CBC & Chem 7: 01/08/17 05:34 01/08/17 05:34 Labs: Abnormal lab results 01/07/17 01/08/17 01/08/17 Range/Units 23:30 05:32 05:34 WBC 17.8 H (4.5-11.0) K/mm3 RBC 3.14 L (3.65-5.03) M/mm3 Hgb 8.2 L (11.8-15.2) gm/dl Hct 26.2 L (35.5-45.6) % MCH 26 L (28-32) pg MCHC 31 L (32-34) % RDW 20.2 H (13.2-15.2) % Lymph % (Auto) 7.8 L (13.4-35.0) % Eos % (Auto) 5.0 H (0.0-4.3) % Eos # 0.9 H (0.0-0.4) K/mm3 Seg Neutrophils % 84.2 H (40.0-70.0) % Seg Neutrophils # 15.0 H (1.8-7.7) K/mm3 Sodium (137-145) mmol/L Potassium (3.6-5.0) mmol/L Chloride (98-107) mmol/L BUN (9-20) mg/dL Glucose (75-100) mg/dL POC Glucose 205 H 133 H (70-105) Calcium (8.4-10.2) mg/dL Phosphorus (2.5-4.5) mg/dL 01/08/17 01/08/17 Range/Units 05:34 11:34 WBC (4.5-11.0) K/mm3 RBC (3.65-5.03) M/mm3 Hgb (11.8-15.2) gm/dl Hct (35.5-45.6) % MCH (28-32) pg MCHC (32-34) % RDW (13.2-15.2) % Lymph % (Auto) (13.4-35.0) % Eos % (Auto) (0.0-4.3) % Eos # (0.0-0.4) K/mm3 Seg Neutrophils % (40.0-70.0) % Seg Neutrophils # (1.8-7.7) K/mm3 Sodium 152 H D (137-145) mmol/L Potassium 3.1 L (3.6-5.0) mmol/L Chloride 113.2 H (98-107) mmol/L BUN 46 H (9-20) mg/dL Glucose 158 H (75-100) mg/dL POC Glucose 243 H (70-105) Calcium 7.8 L (8.4-10.2) mg/dL Phosphorus 1.70 L (2.5-4.5) mg/dL
--- NOTE | 2017-01-08 13:13 | Progress Note ---
Assessment and Plan Imp: 1. UTI/Hydronephrosis 2. Sepsis 2/2 #1 3. Pulmonary edema, suspect may be non-cardiogenic 2/2 above 4. A/C respiratory failure 5. S/p Trach 6. OP dysphagia, s/p PEG 7. Severe hypernatremia 8. Seizures 9. Obstructive uropathy Rec: 1. Has ESBL in urine; changed to Merrem per ID; issa in place 2. F/u Urology recs 3. Cont. D5W 4. Replete K and Phos 5. Pulm edema on CXR as per #3 above; F/u Echo 6. Aspiration precautions 7. SCDs Complex decision-making; no family present Subjective Date of service: 01/08/17 Principal diagnosis: chronic AFib; h/o ICH; sepsis; anemia Interval history: Issa placed today by urology, with return of ~ 1 liter of purulent and turbid urine. Eyes are closed, does not answer questions or follow commands. On 40% FiO2 via T-piece. Cannot obtain hx. Active Medications Acetaminophen (Tylenol) 650 mg FEEDTUBE Q4H PRN PRN Reason: Pain, Mild (1-3) Last Admin: 01/07/17 17:29 Dose: 650 mg Albuterol (Proventil) 2.5 mg IH Q4HRT PRN PRN Reason: Shortness Of Breath Albuterol/Ipratropium (Duoneb *Not For Prn Use*) 1 ampul IH Q6HRT COUNTS INCLUDE 234 BEDS AT THE [facility] Amantadine HCl (Symmetrel) 150 mg FEEDTUBE BID COUNTS INCLUDE 234 BEDS AT THE [facility] Last Admin: 01/08/17 10:02 Dose: 150 mg Lipase/Protease/Amylase (Pancredelmy Dr 10,500 Unit) 1 each FEEDTUBE PRN PRN PRN Reason: For Clogged Feeding Tube Budesonide (Pulmicort) 0.5 mg IH Q12HRT COUNTS INCLUDE 234 BEDS AT THE [facility] Dextrose (D50w (25gm) Syringe) 50 ml IV PRN PRN PRN Reason: Hypoglycemia Digoxin (Lanoxin) 0.25 mg FEEDTUBE DAILY COUNTS INCLUDE 234 BEDS AT THE [facility] Last Admin: 01/08/17 09:57 Dose: 0.25 mg Diltiazem HCl (Cardizem) 30 mg FEEDTUBE DAILY COUNTS INCLUDE 234 BEDS AT THE [facility] Last Admin: 01/08/17 09:57 Dose: 30 mg Ferrous Sulfate (Ferrous Sulfate) 450 mg PO QDAY COUNTS INCLUDE 234 BEDS AT THE [facility] Last Admin: 01/08/17 09:56 Dose: 450 mg Fluoxetine HCl (Prozac) 20 mg FEEDTUBE QDAY COUNTS INCLUDE 234 BEDS AT THE [facility] Last Admin: 01/08/17 09:58 Dose: 20 mg Guaifenesin (Robitussin) 100 mg FEEDTUBE BID PRN PRN Reason: Cough Last Admin: 01/06/17 23:21 Dose: 100 mg Hyoscyamine (Levsin Sl) 0.125 mg SL Q4H PRN PRN Reason: Spasms Dextrose (D5w) 1,000 mls @ 150 mls/hr IV DIRECT COUNTS INCLUDE 234 BEDS AT THE [facility] Last Admin: 01/08/17 04:12 Dose: 150 mls/hr Meropenem 1,000 mg/ Sodium (Chloride) 20 mls @ 20 mls/10 min IV Q8HR GARO Sodium Phosphate 15 mmol/ (Sodium Chloride) 255 mls @ 125 mls/hr IV ONCE ONE Stop: 01/08/17 15:12 Insulin Aspart (Novolog) 0 units SUB-Q Q6HR GARO PRN Reason: Protocol Last Admin: 01/08/17 12:32 Dose: 2 units Levetiracetam (Keppra) 1,000 mg FEEDTUBE BID COUNTS INCLUDE 234 BEDS AT THE [facility] Last Admin: 01/08/17 09:57 Dose: 1,000 mg Lorazepam (Ativan) 1 mg FEEDTUBE BID PRN PRN Reason: Agitation Last Admin: 01/06/17 23:21 Dose: 1 mg Lorazepam (Ativan) 2 mg IV Q4H PRN PRN Reason: Agitation Last Admin: 01/06/17 11:57 Dose: 2 mg Metoprolol Tartrate (Lopressor) 25 mg FEEDTUBE BID COUNTS INCLUDE 234 BEDS AT THE [facility] Last Admin: 01/08/17 09:58 Dose: 25 mg Pantoprazole (Protonix) 40 mg FEEDTUBE DAILY COUNTS INCLUDE 234 BEDS AT THE [facility] Last Admin: 01/08/17 09:58 Dose: 40 mg Simple Syrup (Simple Syrup) 15 ml FEEDTUBE PRN PRN PRN Reason: Hypoglycemia Simple Syrup (Simple Syrup) 30 ml FEEDTUBE PRN PRN PRN Reason: Hypoglycemia Sodium Bicarbonate (Sodium Bicarbonate) 325 mg FEEDTUBE PRN PRN PRN Reason: For Clogged Feeding Tube Trazodone HCl (Desyrel) 25 mg PO QHS COUNTS INCLUDE 234 BEDS AT THE [facility] Last Admin: 01/07/17 21:40 Dose: 25 mg Objective Vital Signs - 12hr 01/08/17 01/08/17 01/08/17 02:18 02:30 03:35 Temperature 99.3 F Pulse Rate 42 L Pulse Rate [ 68 Anterior Bilateral Throughout] Respiratory 20 Rate Respiratory 24 22 Rate [Anterior Bilateral Throughout] Blood Pressure 107/53 O2 Sat by Pulse 99 Oximetry O2 Sat by Pulse Oximetry [ Assessment] 01/08/17 01/08/17 01/08/17 07:45 08:25 08:27 Temperature 99.3 F Pulse Rate 45 L Pulse Rate [ 62 Anterior Bilateral Throughout] Respiratory 24 Rate Respiratory 20 Rate [Anterior Bilateral Throughout] Blood Pressure 109/55 O2 Sat by Pulse 100 100 Oximetry O2 Sat by Pulse Oximetry [ Assessment] 01/08/17 01/08/17 01/08/17 08:37 08:41 09:57 Temperature Pulse Rate 72 Pulse Rate [ 89 Anterior Bilateral Throughout] Respiratory Rate Respiratory 20 Rate [Anterior Bilateral Throughout] Blood Pressure 110/78 O2 Sat by Pulse 100 Oximetry O2 Sat by Pulse 100 Oximetry [ Assessment] 01/08/17 01/08/17 09:58 12:33 Temperature 100.0 F H Pulse Rate 72 43 L Pulse Rate [ Anterior Bilateral Throughout] Respiratory 24 Rate Respiratory Rate [Anterior Bilateral Throughout] Blood Pressure 110/78 99/66 O2 Sat by Pulse 97 Oximetry O2 Sat by Pulse Oximetry [ Assessment] Constitutional: no acute distress, alert Eyes: non-icteric ENT: oropharynx dry Neck: supple, other (trach midline) Effort: mildly labored Ascultation: Bilateral: other (coarse BS bilaterally) Cardiovascular: other (tachy, ir/ir, no mrg) Gastrointestinal: normoactive bowel sounds, soft, non-tender, non-distended Integumentary: normal Extremities: no cyanosis, no edema Neurologic: other (moves upper extremities, does not open eyes or follow commands) Psychiatric: other (unable to assess) CBC and BMP: 01/08/17 05:34 01/08/17 05:34 ABG, PT/INR, D-dimer: ABG POC ABG pH 7.557 (7.35-7.45) H 01/06/17 15:24 POC ABG pCO2 28.0 (35-45) L 01/06/17 15:24 POC ABG pO2 66 (80-105) L 01/06/17 15:24 POC ABG HCO3 24.9 01/06/17 15:24 POC ABG Total CO2 26 01/06/17 15:24 POC ABG O2 Sat 96 01/06/17 15:24 PT/INR, D-dimer PT 18.1 Sec. (12.2-14.9) H 01/04/17 07:31 INR 1.42 (0.87-1.13) H 01/04/17 07:31 Abnormal lab findings: Abnormal Labs 01/04/17 01/04/17 01/04/17 07:03 07:21 07:31 WBC 16.4 H RBC 2.48 L Hgb 6.2 L Hct 20.1 L MCV 81 L MCH 25 L MCHC 31 L RDW 19.7 H Lymph % (Auto) Eos % (Auto) Eos # Seg Neutrophils % Seg Neutrophils # PT 18.1 H INR 1.42 H APTT 59.9 H POC ABG pH POC ABG pCO2 POC ABG pO2 Sodium Potassium Chloride Carbon Dioxide BUN Glucose POC Glucose 210 H Hemoglobin A1c Calcium Phosphorus Magnesium Total Creatine Kinase C-Reactive Protein Urine WBC (Auto) Crossmatch 01/04/17 01/04/17 01/04/17 07:31 09:03 12:01 WBC RBC Hgb 6.1 L Hct 19.4 L* MCV MCH MCHC RDW Lymph % (Auto) Eos % (Auto) Eos # Seg Neutrophils % Seg Neutrophils # PT INR APTT POC ABG pH POC ABG pCO2 POC ABG pO2 Sodium 148 H Potassium Chloride Carbon Dioxide 33 H BUN 80 H Glucose 182 H POC Glucose Hemoglobin A1c Calcium Phosphorus Magnesium 2.60 H Total Creatine Kinase 26 L C-Reactive Protein Urine WBC (Auto) Crossmatch See Detail 01/04/17 01/04/17 01/04/17 12:01 16:50 22:46 WBC RBC Hgb Hct MCV MCH MCHC RDW Lymph % (Auto) Eos % (Auto) Eos # Seg Neutrophils % Seg Neutrophils # PT INR APTT POC ABG pH POC ABG pCO2 POC ABG pO2 Sodium Potassium Chloride Carbon Dioxide BUN Glucose POC Glucose 217 H 115 H Hemoglobin A1c 6.8 H Calcium Phosphorus Magnesium Total Creatine Kinase C-Reactive Protein Urine WBC (Auto) Crossmatch 01/04/17 01/05/17 01/05/17 Unknown 03:50 04:46 WBC 15.6 H RBC 3.10 L Hgb 8.1 L Hct 24.8 L MCV 80 L MCH 26 L MCHC RDW 19.1 H Lymph % (Auto) 11.4 L Eos % (Auto) Eos # Seg Neutrophils % 82.7 H Seg Neutrophils # 12.9 H PT INR APTT POC ABG pH POC ABG pCO2 POC ABG pO2 Sodium Potassium Chloride Carbon Dioxide BUN Glucose POC Glucose 140 H Hemoglobin A1c Calcium Phosphorus Magnesium Total Creatine Kinase C-Reactive Protein Urine WBC (Auto) > 182.0 H Crossmatch 01/05/17 01/05/17 01/05/17 04:46 06:21 09:25 WBC RBC Hgb 8.2 L Hct 26.1 L MCV MCH MCHC RDW Lymph % (Auto) Eos % (Auto) Eos # Seg Neutrophils % Seg Neutrophils # PT INR APTT POC ABG pH POC ABG pCO2 POC ABG pO2 Sodium 151 H Potassium Chloride 107.6 H Carbon Dioxide BUN 61 H Glucose 144 H POC Glucose 154 H Hemoglobin A1c Calcium Phosphorus Magnesium Total Creatine Kinase C-Reactive Protein Urine WBC (Auto) Crossmatch 01/05/17 01/05/17 01/05/17 12:05 14:48 17:00 WBC RBC Hgb 8.0 L Hct 25.2 L MCV MCH MCHC RDW Lymph % (Auto) Eos % (Auto) Eos # Seg Neutrophils % Seg Neutrophils # PT INR APTT POC ABG pH POC ABG pCO2 POC ABG pO2 Sodium Potassium Chloride Carbon Dioxide BUN Glucose POC Glucose 122 H 190 H Hemoglobin A1c Calcium Phosphorus Magnesium Total Creatine Kinase C-Reactive Protein Urine WBC (Auto) Crossmatch 01/05/17 01/05/17 01/06/17 20:38 21:36 02:51 WBC RBC Hgb 7.9 L Hct 25.4 L MCV MCH MCHC RDW Lymph % (Auto) Eos % (Auto) Eos # Seg Neutrophils % Seg Neutrophils # PT INR APTT POC ABG pH POC ABG pCO2 POC ABG pO2 Sodium Potassium Chloride Carbon Dioxide BUN Glucose POC Glucose 109 H 144 H Hemoglobin A1c Calcium Phosphorus Magnesium Total Creatine Kinase C-Reactive Protein Urine WBC (Auto) Crossmatch 01/06/17 01/06/17 01/06/17 03:11 03:11 03:38 WBC 18.0 H RBC 3.26 L Hgb 8.4 L Hct 26.8 L MCV 82 L MCH 26 L MCHC RDW 19.4 H Lymph % (Auto) 7.7 L Eos % (Auto) Eos # Seg Neutrophils % 87.8 H Seg Neutrophils # 15.8 H PT INR APTT POC ABG pH 7.575 H POC ABG pCO2 26.5 L POC ABG pO2 55 L Sodium 159 H D Potassium 3.4 L Chloride 116.6 H Carbon Dioxide BUN 51 H Glucose 145 H POC Glucose Hemoglobin A1c Calcium Phosphorus Magnesium Total Creatine Kinase C-Reactive Protein Urine WBC (Auto) Crossmatch 01/06/17 01/06/17 01/06/17 05:15 11:44 15:24 WBC RBC Hgb Hct MCV MCH MCHC RDW Lymph % (Auto) Eos % (Auto) Eos # Seg Neutrophils % Seg Neutrophils # PT INR APTT POC ABG pH 7.557 H POC ABG pCO2 28.0 L POC ABG pO2 66 L Sodium Potassium Chloride Carbon Dioxide BUN Glucose POC Glucose 157 H 210 H Hemoglobin A1c Calcium Phosphorus Magnesium Total Creatine Kinase C-Reactive Protein Urine WBC (Auto) Crossmatch 01/06/17 01/06/17 01/07/17 20:37 22:52 06:47 WBC 19.3 H RBC 2.99 L Hgb 7.8 L Hct 24.8 L MCV 83 L MCH 26 L MCHC RDW 19.9 H Lymph % (Auto) 7.7 L Eos % (Auto) Eos # Seg Neutrophils % 87.7 H Seg Neutrophils # 16.9 H PT INR APTT POC ABG pH POC ABG pCO2 POC ABG pO2 Sodium Potassium Chloride Carbon Dioxide BUN Glucose POC Glucose 197 H Hemoglobin A1c Calcium Phosphorus Magnesium Total Creatine Kinase C-Reactive Protein 19.70 H Urine WBC (Auto) Crossmatch 01/07/17 01/07/17 01/07/17 06:47 06:50 11:24 WBC RBC Hgb Hct MCV MCH MCHC RDW Lymph % (Auto) Eos % (Auto) Eos # Seg Neutrophils % Seg Neutrophils # PT INR APTT POC ABG pH POC ABG pCO2 POC ABG pO2 Sodium 165 H* Potassium 3.0 L Chloride 125.9 H Carbon Dioxide BUN 47 H Glucose 169 H POC Glucose 184 H 141 H Hemoglobin A1c Calcium 8.0 L Phosphorus Magnesium Total Creatine Kinase C-Reactive Protein Urine WBC (Auto) Crossmatch 01/07/17 01/08/17 01/08/17 23:30 05:32 05:34 WBC 17.8 H RBC 3.14 L Hgb 8.2 L Hct 26.2 L MCV MCH 26 L MCHC 31 L RDW 20.2 H Lymph % (Auto) 7.8 L Eos % (Auto) 5.0 H Eos # 0.9 H Seg Neutrophils % 84.2 H Seg Neutrophils # 15.0 H PT INR APTT POC ABG pH POC ABG pCO2 POC ABG pO2 Sodium Potassium Chloride Carbon Dioxide BUN Glucose POC Glucose 205 H 133 H Hemoglobin A1c Calcium Phosphorus Magnesium Total Creatine Kinase C-Reactive Protein Urine WBC (Auto) Crossmatch 01/08/17 01/08/17 05:34 11:34 WBC RBC Hgb Hct MCV MCH MCHC RDW Lymph % (Auto) Eos % (Auto) Eos # Seg Neutrophils % Seg Neutrophils # PT INR APTT POC ABG pH POC ABG pCO2 POC ABG pO2 Sodium 152 H D Potassium 3.1 L Chloride 113.2 H Carbon Dioxide BUN 46 H Glucose 158 H POC Glucose 243 H Hemoglobin A1c Calcium 7.8 L Phosphorus 1.70 L Magnesium Total Creatine Kinase C-Reactive Protein Urine WBC (Auto) Crossmatch Chest x-ray: report reviewed, image reviewed (bilateral infiltrate, without improvement)
[2017-01-08] MEDS ORDERED: SODIUM PHOSPHATE 15 MMOL in NACL 0.9% 250ML 250 ML IV ONE (14:10)
[2017-01-08] MEDS: MERREM 1,000 MG in NACL 0.9% 20 ML IV SCH (14:28)
--- NOTE | 2017-01-08 14:57 | Progress Note ---
Assessment and Plan Assessment and plan: Severe anemia - Patient's H&H on admission was 07/30 and transfused 2 units of blood, hemoglobin this morning was 8.2 - GI consulted and recommended PPI no colonoscopy at this time History of ICH - Neurology consult appreciated - With neurology recommendation about anticoagulation, I held Xarelto for now A. fib, status post 2 bioprosthetic valves - held xarelto - Cardiology consult appreciated Sacral decubitus ulcer - Wound care consulted Status post trach, respiratory distress - Duonebs, oxygen support - Pulmonary consult, appreciated Seizure disorder - Patient had seizures overnight - patient was put on keppra and PRN ativan - Neurology consulted Severe Sepsis - Levaquin and aztreonam stopped today and started on meropenem after ESBL positive urine culture - blood culture is negative so far Pneumonia - continue IV antibiotics Hypernatreamia, hyperchloremia - Increase free water - Showed some improvement from yesterday Bilateral Hydronephrosis - Urology evaluated him and put issa catheter Resume appropriate home medications DVT prophylaxis - Mechanical, because of bleeding Disposition -Continue inpatient care Prognosis - Guarded History Interval history: Patient was seen and evaluated this morning, and discussed the management plan with the yesterday. patient is critically sick. Had episodes of fever. Hospitalist Physical - Physical exam Narrative exam: Patient is on PEG and trach. The patient appeared well nourished and normally developed. Vital signs as documented. Head exam is unremarkable. No scleral icterus . Neck is without jugular venous distension, thyromegaly, or carotid bruits. Lungs are clear to auscultation. Cardiac exam reveals regular rate and Rhythm. First and second heart sounds normal. No murmurs, rubs or gallops. Abdominal exam reveals in place. Extremities are nonedematous and both femoral and pedal pulses are normal. 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 - Constitutional Vitals: Temp Pulse Resp BP Pulse Ox 100.0 F H 43 L 24 99/66 97 01/08/17 12:33 01/08/17 12:33 01/08/17 12:33 01/08/17 12:33 01/08/17 12:33 General appearance: Present: mild distress Results - Labs CBC & Chem 7: 01/08/17 05:34 01/08/17 05:34 Labs: Laboratory Last Values WBC 17.8 K/mm3 (4.5-11.0) H 11/28/17 05:34 RBC 3.14 M/mm3 (3.65-5.03) L 01/08/17 05:34 Hgb 8.2 gm/dl (11.8-15.2) L 01/08/17 05:34 Hct 26.2 % (35.5-45.6) L 01/08/17 05:34 MCV 84 fl (84-94) 01/08/17 05:34 MCH 26 pg (28-32) L 01/08/17 05:34 MCHC 31 % (32-34) L 01/08/17 05:34 RDW 20.2 % (13.2-15.2) H 01/08/17 05:34 Plt Count 195 K/mm3 (140-440) 01/08/17 05:34 Lymph % (Auto) 7.8 % (13.4-35.0) L 01/08/17 05:34 [place] % (Auto) 2.7 % (0.0-7.3) 01/08/17 05:34 Eos % (Auto) 5.0 % (0.0-4.3) H 01/08/17 05:34 Baso % (Auto) 0.3 % (0.0-1.8) 01/08/17 05:34 Lymph # 1.4 K/mm3 (1.2-5.4) 01/08/17 05:34 [place] # 0.5 K/mm3 (0.0-0.8) 01/08/17 05:34 Eos # 0.9 K/mm3 (0.0-0.4) H 01/08/17 05:34 Baso # 0.0 K/mm3 (0.0-0.1) 01/08/17 05:34 Seg Neutrophils % 84.2 % (40.0-70.0) H 01/08/17 05:34 Seg Neutrophils # 15.0 K/mm3 (1.8-7.7) H 01/08/17 05:34 PT 18.1 Sec. (12.2-14.9) H 01/04/17 07:31 INR 1.42 (0.87-1.13) H 01/04/17 07:31 APTT 59.9 Sec. (24.2-36.6) H 01/04/17 07:31 POC ABG pH 7.557 (7.35-7.45) H 01/06/17 15:24 POC ABG pCO2 28.0 (35-45) L 01/06/17 15:24 POC ABG pO2 66 (80-105) L 01/06/17 15:24 POC ABG HCO3 24.9 01/06/17 15:24 POC ABG Total CO2 26 01/06/17 15:24 POC ABG O2 Sat 96 01/06/17 15:24 POC ABG Base Excess 3 01/06/17 15:24 FiO2 28 % 01/06/17 15:24 Sodium 152 mmol/L (137-145) H D 01/08/17 05:34 Potassium 3.1 mmol/L (3.6-5.0) L 01/08/17 05:34 Chloride 113.2 mmol/L (98-107) H 01/08/17 05:34 Carbon Dioxide 24 mmol/L (22-30) 01/08/17 05:34 Anion Gap 18 mmol/L 01/08/17 05:34 BUN 46 mg/dL (9-20) H 01/08/17 05:34 Creatinine 1.1 mg/dL (0.8-1.5) 01/08/17 05:34 Estimated GFR > 60 ml/min 01/08/17 05:34 BUN/Creatinine Ratio 42 % 01/08/17 05:34 Glucose 158 mg/dL (75-100) H 01/08/17 05:34 POC Glucose 243 (70-105) H 01/08/17 11:34 Hemoglobin A1c 6.8 % (4-6) H 01/04/17 12:01 Lactic Acid 1.30 mmol/L (0.7-2.0) 01/04/17 07:21 Calcium 7.8 mg/dL (8.4-10.2) L 01/08/17 05:34 Phosphorus 1.70 mg/dL (2.5-4.5) L 01/08/17 05:34 Magnesium 2.10 mg/dL (1.7-2.3) 01/08/17 05:34 Total Creatine Kinase 26 units/L (55-170) L 01/04/17 07:31 C-Reactive Protein 19.70 mg/dL (0.00-1.30) H 01/06/17 20:37 Urine Color Yellow (Yellow) 01/04/17 Unknown Urine Turbidity Clear (Clear) 01/04/17 Unknown Urine pH 5.0 (5.0-7.0) 01/04/17 Unknown Ur Specific Raph[place] 1.014 (1.003-1.030) 01/04/17 Unknown Urine Protein 30 mg/dl mg/dL (Negative) 01/04/17 Unknown Urine Glucose (UA) Neg mg/dL (Negative) 01/04/17 Unknown Urine Ketones Neg mg/dL (Negative) 01/04/17 Unknown Urine Blood Sm (Negative) 01/04/17 Unknown Urine Nitrite Neg (Negative) 01/04/17 Unknown Ur Reducing Substances Not Reportable 01/04/17 Unknown Urine Bilirubin Neg (Negative) 01/04/17 Unknown Urine Ictotest Not Reportable 01/04/17 Unknown Urine Urobilinogen < 2.0 mg/dL (<2.0) 01/04/17 Unknown Ur Leukocyte Esterase Lg (Negative) 01/04/17 Unknown Urine WBC (Auto) > 182.0 /HPF (0.0-6.0) H 01/04/17 Unknown Urine RBC (Auto) 58.0 /HPF (0.0-6.0) 01/04/17 Unknown Urine Bacteria (Auto) 4+ /HPF (Negative) 01/04/17 Unknown Urine WBC Clumps 3+ /HPF 01/04/17 Unknown Urine Mucus Few /HPF 01/04/17 Unknown Urine Yeast (Budding) 1+ /HPF 01/04/17 Unknown Blood Type B POSITIVE 01/04/17 09:03 Antibody Screen Negative 01/04/17 09:03 Crossmatch See Detail 01/04/17 09:03 Leukocytosis, hypokalemia
[2017-01-08] MEDS ORDERED: KPHOS 15 MMOL in NACL 0.9% 250ML 250 ML IV SCH (15:00)
[2017-01-08] MEDS: DESYREL PO SCH (23:06)
[2017-01-09] MEDS: MERREM 1,000 MG in NACL 0.9% 20 ML IV SCH ×4 (00:19→23:18)
[2017-01-09] MEDS: DUONEB *Not for PRN Use IH SCH ×4 (02:00→21:15)
[2017-01-09] MEDS: SYMMETREL FEEDTUBE SCH ×3 (02:41→23:13)
[2017-01-09] MEDS: NOVOLOG SUB-Q SCH ×4 (02:51→17:32)
[2017-01-09] MEDS: D5W 1,000 ML IV SCH ×2 (02:52→17:21)
--- NOTE | 2017-01-09 04:45 | Consultation ---
HISTORY OF PRESENT ILLNESS: The patient is a 61-year-old gentleman with multiple medical problems, presented with sepsis, previous intercerebral hemorrhage, prosthetic valve, anemia with hypotension, and evidence of sepsis. PAST MEDICAL HISTORY: As mentioned above, previous stroke as well. PAST SURGICAL HISTORY: Valve replacement, tracheostomy shunt. ALLERGIES: PENICILLIN, VANCOMYCIN. MEDICATIONS: Extensive including Xarelto, Desyrel, albuterol, Prozac, Pulmicort, Lanoxin, amantadine, Ativan, and insulin. SOCIAL HISTORY: Unobtainable. FAMILY HISTORY: Not obtainable. REVIEW OF SYSTEMS: Unobtainable. PHYSICAL EXAMINATION: GENERAL: He is barely responsive, on a trach, with respiratory support. ABDOMEN: Soft, mild distention. He has obvious incontinence with a condom catheter. GENITALIA: He has severely atrophic testis. IMPRESSION: Previous recent sepsis. Quispe catheter was inserted because he had a distended abdomen. He has some bilateral hydronephrosis consistent with outflow obstruction. This should improve with catheter drainage. His creatinine was normal. PLAN: Continue Quispe catheter drainage. JOB# [id number] JOYCE/CHARLENE
[2017-01-09] MEDS: PULMICORT IH SCH ×2 (08:06→21:15)
--- NOTE | 2017-01-09 08:12 | Progress Note ---
Assessment and Plan Assessment and plan: 61 year old -[place] male with past medical history significant for intracerebral hemorrhage, s/p bioprostetic valves, A fib, A. fib on anticoagulation, hypertension, prediabetes, on PEG tube feeding was brought by EMS from custodial because of complaints of his hemoglobin is low. Severe anemia - Patient's H&H on admission was 07/30 and transfused 2 units of blood, hemoglobin this morning was 8.2 - GI consulted and recommended PPI no colonoscopy at this time History of ICH - Neurology consult appreciated - With neurology recommendation about anticoagulation, I held Xarelto for now A. fib, status post 2 bioprosthetic valves - held xarelto - Cardiology consult appreciated Sacral decubitus ulcer - Wound care consulted Status post trach, respiratory distress - Duonebs, oxygen support - Pulmonary consult, appreciated Seizure disorder - Patient had seizures overnight - patient was put on keppra and PRN ativan - Neurology consulted Severe Sepsis - Levaquin and aztreonam stopped today and started on meropenem after ESBL positive urine culture - blood culture is negative so far Pneumonia - continue IV antibiotics Hypernatreamia, hyperchloremia - Increase free water - Showed some improvement from yesterday Bilateral Hydronephrosis - Urology evaluated him and put issa catheter Resume appropriate home medications DVT prophylaxis - Mechanical, because of bleeding Disposition -Continue inpatient care Prognosis - Guarded History Interval history: remains febrile, non responsive, tachypneic, no vomiting, no seizure Hospitalist Physical - Physical exam Narrative exam: Patient is on PEG and trach. The patient appeared critically ill, very thin Vital signs as documented. Head exam is unremarkable. No scleral icterus . Neck is without jugular venous distension, thyromegaly, or carotid bruits. Lungs are clear to auscultation. Cardiac exam reveals regular rate and Rhythm. First and second heart sounds normal. No murmurs, rubs or gallops. Abdominal exam reveals in place. Extremities are nonedematous and both femoral and pedal pulses are normal. 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 - Constitutional Vitals: Temp Pulse Resp BP Pulse Ox 100.4 F H 94 H 20 112/53 100 01/09/17 00:07 01/09/17 08:09 01/09/17 08:09 01/09/17 00:07 01/09/17 08:08 General appearance: Present: mild distress Results - Labs CBC & Chem 7: 01/11/17 08:51 01/11/17 08:51 Labs: Laboratory Last Values WBC 17.8 K/mm3 (4.5-11.0) H 01/08/17 05:34 RBC 3.14 M/mm3 (3.65-5.03) L 01/08/17 05:34 Hgb 8.2 gm/dl (11.8-15.2) L 01/08/17 05:34 Hct 26.2 % (35.5-45.6) L 01/08/17 05:34 MCV 84 fl (84-94) 01/08/17 05:34 MCH 26 pg (28-32) L 01/08/17 05:34 MCHC 31 % (32-34) L 01/08/17 05:34 RDW 20.2 % (13.2-15.2) H 01/08/17 05:34 Plt Count 195 K/mm3 (140-440) 01/08/17 05:34 Lymph % (Auto) 7.8 % (13.4-35.0) L 01/08/17 05:34 [place] % (Auto) 2.7 % (0.0-7.3) 01/08/17 05:34 Eos % (Auto) 5.0 % (0.0-4.3) H 01/08/17 05:34 Baso % (Auto) 0.3 % (0.0-1.8) 01/08/17 05:34 Lymph # 1.4 K/mm3 (1.2-5.4) 01/08/17 05:34 [place] # 0.5 K/mm3 (0.0-0.8) 01/08/17 05:34 Eos # 0.9 K/mm3 (0.0-0.4) H 01/08/17 05:34 Baso # 0.0 K/mm3 (0.0-0.1) 01/08/17 05:34 Seg Neutrophils % 84.2 % (40.0-70.0) H 01/08/17 05:34 Seg Neutrophils # 15.0 K/mm3 (1.8-7.7) H 01/08/17 05:34 PT 18.1 Sec. (12.2-14.9) H 01/04/17 07:31 INR 1.42 (0.87-1.13) H 01/04/17 07:31 APTT 59.9 Sec. (24.2-36.6) H 01/04/17 07:31 POC ABG pH 7.557 (7.35-7.45) H 01/06/17 15:24 POC ABG pCO2 28.0 (35-45) L 01/06/17 15:24 POC ABG pO2 66 (80-105) L 01/06/17 15:24 POC ABG HCO3 24.9 01/06/17 15:24 POC ABG Total CO2 26 01/06/17 15:24 POC ABG O2 Sat 96 01/06/17 15:24 POC ABG Base Excess 3 01/06/17 15:24 FiO2 28 % 01/06/17 15:24 Sodium 152 mmol/L (137-145) H D 01/08/17 05:34 Potassium 3.1 mmol/L (3.6-5.0) L 01/08/17 05:34 Chloride 113.2 mmol/L (98-107) H 01/08/17 05:34 Carbon Dioxide 24 mmol/L (22-30) 01/08/17 05:34 Anion Gap 18 mmol/L 01/08/17 05:34 BUN 46 mg/dL (9-20) H 01/08/17 05:34 Creatinine 1.1 mg/dL (0.8-1.5) 01/08/17 05:34 Estimated GFR > 60 ml/min 01/08/17 05:34 BUN/Creatinine Ratio 42 % 01/08/17 05:34 Glucose 158 mg/dL (75-100) H 01/08/17 05:34 POC Glucose 150 (70-105) H 01/09/17 06:02 Hemoglobin A1c 6.8 % (4-6) H 01/04/17 12:01 Lactic Acid 1.30 mmol/L (0.7-2.0) 01/04/17 07:21 Calcium 7.8 mg/dL (8.4-10.2) L 01/08/17 05:34 Phosphorus 1.70 mg/dL (2.5-4.5) L 01/08/17 05:34 Magnesium 2.10 mg/dL (1.7-2.3) 01/08/17 05:34 Total Creatine Kinase 26 units/L (55-170) L 01/04/17 07:31 C-Reactive Protein 19.70 mg/dL (0.00-1.30) H 01/06/17 20:37 Urine Color Yellow (Yellow) 01/04/17 Unknown Urine Turbidity Clear (Clear) 01/04/17 Unknown Urine pH 5.0 (5.0-7.0) 01/04/17 Unknown Ur Specific [place] 1.014 (1.003-1.030) 01/04/17 Unknown Urine Protein 30 mg/dl mg/dL (Negative) 01/04/17 Unknown Urine Glucose (UA) Neg mg/dL (Negative) 01/04/17 Unknown Urine Ketones Neg mg/dL (Negative) 01/04/17 Unknown Urine Blood Sm (Negative) 01/04/17 Unknown Urine Nitrite Neg (Negative) 01/04/17 Unknown Ur Reducing Substances Not Reportable 01/04/17 Unknown Urine Bilirubin Neg (Negative) 01/04/17 Unknown Urine Ictotest Not Reportable 01/04/17 Unknown Urine Urobilinogen < 2.0 mg/dL (<2.0) 01/04/17 Unknown Ur Leukocyte Esterase Lg (Negative) 01/04/17 Unknown Urine WBC (Auto) > 182.0 /HPF (0.0-6.0) H 01/04/17 Unknown Urine RBC (Auto) 58.0 /HPF (0.0-6.0) 01/04/17 Unknown Urine Bacteria (Auto) 4+ /HPF (Negative) 01/04/17 Unknown Urine WBC Clumps 3+ /HPF 01/04/17 Unknown Urine Mucus Few /HPF 01/04/17 Unknown Urine Yeast (Budding) 1+ /HPF 01/04/17 Unknown Blood Type B POSITIVE 01/04/17 09:03 Antibody Screen Negative 01/04/17 09:03 Crossmatch See Detail 01/04/17 09:03
[2017-01-09 08:28] LABS: Basophils % (Auto) 0.2 % (0.0-1.8); Hematocrit 23.5 % (35.5-45.6); Hemoglobin 7.2 gm/dl (11.8-15.2); Mean Corpuscular HGB Conc 31 % (32-34); Mean Corpuscular Volume 82 fl (84-94); Platelet Count 175 K/mm3 (140-440); Red Blood Count 2.87 M/mm3 (3.65-5.03); White Blood Count 15.3 K/mm3 (4.5-11.0)
[2017-01-09 08:29] LABS: Mean Corpuscular Hemoglobin 25 pg (28-32); Red Cell Distribution Width 20.6 % (13.2-15.2)
[2017-01-09 08:42] LABS: Anion Gap 18 mmol/L; BUN/Creatinine Ratio 40; Blood Urea Nitrogen 36 mg/dL (9-20); Calcium 7.6 mg/dL (8.4-10.2); Carbon Dioxide 23 mmol/L (22-30); Chloride 108.7 mmol/L (98-107); Glucose 140 mg/dL (75-100); Potassium 3.5 mmol/L (3.6-5.0); Sodium 146 mmol/L (137-145)
[2017-01-09] MEDS: FERROUS SULFATE PO SCH (09:48)
[2017-01-09] MEDS: CARDIZEM FEEDTUBE SCH (09:49)
[2017-01-09] MEDS: PROzac FEEDTUBE SCH (09:49)
[2017-01-09] MEDS: LANOXIN FEEDTUBE SCH (09:49)
[2017-01-09] MEDS: KEPPRA FEEDTUBE SCH ×2 (09:50→23:12)
[2017-01-09] MEDS: PROTONIX FEEDTUBE SCH (09:50)
--- NOTE | 2017-01-09 10:12 | Consultation ---
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 denies: smoking, alcohol abuse, prescription drug abuse, IV drug use Family history: no significant family history Medications and Allergies Allergies Allergy/AdvReac Type Severity Reaction Status Date / Time latex Allergy Unknown Verified 01/04/17 09:05 Penicillins Allergy Unknown Verified 01/04/17 09:05 vancomycin Allergy Unknown Verified 01/04/17 09:05 Home Medications Medication Instructions Recorded Confirmed Last Taken Type Acetaminophen [Tylenol Extra 500 mg FEEDTUBE QID PRN 01/04/17 01/04/17 Unknown History Strength] Amantadine HCl [Amantadine] 150 mg FEEDTUBE BID 01/04/17 01/04/17 Unknown History Aspirin BABY CHEW TAB 81 mg FEEDTUBE DAILY 01/04/17 01/04/17 Unknown History Budesonide [Pulmicort] 0.5 mg IH Q12HR 01/04/17 01/04/17 Unknown History Cetirizine HCl [All Day Allergy] 10 mg FEEDTUBE DAILY 01/04/17 01/04/17 Unknown History Digoxin [Lanoxin] 0.25 mg FEEDTUBE DAILY 01/04/17 01/04/17 Unknown History Diltiazem [CarDIZEM] 30 mg FEEDTUBE DAILY 01/04/17 01/04/17 Unknown History FLUoxetine [PROzac] 20 mg FEEDTUBE QDAY 01/04/17 01/04/17 Unknown History Ferrous Sulfate 7.5 ml FEEDTUBE BID 01/04/17 01/04/17 Unknown History Hyoscyamine Sulfate [Hyoscyamine 0.125 mg FEEDTUBE Q4H PRN 01/04/17 01/04/17 Unknown History Rapdis 0.125 mg] Insulin Aspart [Novolog Flexpen] 0 unit SQ BID 01/04/17 01/04/17 Unknown History Insulin Detemir [Levemir] 5 units SUB-Q QHS 01/04/17 01/04/17 Unknown History Ipratropium/Albuterol Sulfate 1 ampul IH Q4HR 01/04/17 01/04/17 Unknown History [DUONEB *Not for PRN Use*] LORazepam [Ativan] 1 mg FEEDTUBE BID PRN 01/04/17 01/04/17 Unknown History Metoprolol [Lopressor] 25 mg FEEDTUBE BID 01/04/17 01/04/17 Unknown History Ondansetron [Zofran Oral Liq] 4 mg FEEDTUBE Q6HR PRN 01/04/17 01/04/17 Unknown History Pantoprazole Sodium 40 mg FEEDTUBE DAILY 01/04/17 01/04/17 Unknown History Rivaroxaban [Xarelto] 20 mg FEEDTUBE QHS 01/04/17 01/04/17 Unknown History guaiFENesin [Guaifenesin] 100 mg FEEDTUBE BID PRN 01/04/17 01/04/17 Unknown History traZODone [Desyrel] 25 mg FEEDTUBE QHS 01/04/17 01/04/17 Unknown History Active Meds: Active Medications Acetaminophen (Tylenol) 650 mg FEEDTUBE Q4H PRN PRN Reason: Pain, Mild (1-3) Last Admin: 01/07/17 17:29 Dose: 650 mg Albuterol (Proventil) 2.5 mg IH Q4HRT PRN PRN Reason: Shortness Of Breath Albuterol/Ipratropium (Duoneb *Not For Prn Use*) 1 ampul IH Q6HRT [facility] Last Admin: 01/09/17 08:06 Dose: 1 ampul Amantadine HCl (Symmetrel) 150 mg FEEDTUBE BID [facility] Last Admin: 01/09/17 10:04 Dose: 150 mg Lipase/Protease/Amylase (Pancreaze Dr 10,500 Unit) 1 each FEEDTUBE PRN PRN PRN Reason: For Clogged Feeding Tube Budesonide (Pulmicort) 0.5 mg IH Q12HRT [facility] Last Admin: 01/09/17 08:06 Dose: 0.5 mg Dextrose (D50w (25gm) Syringe) 50 ml IV PRN PRN PRN Reason: Hypoglycemia Digoxin (Lanoxin) 0.25 mg FEEDTUBE DAILY [facility] Last Admin: 01/09/17 09:49 Dose: 0.25 mg Diltiazem HCl (Cardizem) 30 mg FEEDTUBE DAILY [facility] Last Admin: 01/09/17 09:49 Dose: 30 mg Ferrous Sulfate (Ferrous Sulfate) 450 mg PO QDAY [facility] Last Admin: 01/09/17 09:48 Dose: 450 mg Fluoxetine HCl (Prozac) 20 mg FEEDTUBE QDAY [facility] Last Admin: 01/09/17 09:49 Dose: 20 mg Guaifenesin (Robitussin) 100 mg FEEDTUBE BID PRN PRN Reason: Cough Last Admin: 01/06/17 23:21 Dose: 100 mg Hyoscyamine (Levsin Sl) 0.125 mg SL Q4H PRN PRN Reason: Spasms Dextrose (D5w) 1,000 mls @ 150 mls/hr IV DIRECT [facility] Last Admin: 01/09/17 02:52 Dose: 150 mls/hr Meropenem 1,000 mg/ Sodium (Chloride) 20 mls @ 20 mls/10 min IV Q8HR [facility] Last Admin: 01/09/17 06:08 Dose: 20 mls/10 min Insulin Aspart (Novolog) 0 units SUB-Q Q6HR [facility] PRN Reason: Protocol Last Admin: 01/09/17 07:18 Dose: 3 units Levetiracetam (Keppra) 1,000 mg FEEDTUBE BID [facility] Last Admin: 01/09/17 09:50 Dose: 1,000 mg Lorazepam (Ativan) 1 mg FEEDTUBE BID PRN PRN Reason: Agitation Last Admin: 01/06/17 23:21 Dose: 1 mg Lorazepam (Ativan) 2 mg IV Q4H PRN PRN Reason: Agitation Last Admin: 01/06/17 11:57 Dose: 2 mg Metoprolol Tartrate (Lopressor) 25 mg FEEDTUBE BID [facility] Last Admin: 01/08/17 23:08 Dose: 25 mg Pantoprazole (Protonix) 40 mg FEEDTUBE DAILY [facility] Last Admin: 01/09/17 09:50 Dose: 40 mg Simple Syrup (Simple Syrup) 15 ml FEEDTUBE PRN PRN PRN Reason: Hypoglycemia Simple Syrup (Simple Syrup) 30 ml FEEDTUBE PRN PRN PRN Reason: Hypoglycemia Sodium Bicarbonate (Sodium Bicarbonate) 325 mg FEEDTUBE PRN PRN PRN Reason: For Clogged Feeding Tube Trazodone HCl (Desyrel) 25 mg PO QHS [facility] Last Admin: 01/08/17 23:06 Dose: 25 mg Physical Examination - Vital Signs Vital Signs: Vital Signs Resp 21 01/04/17 05:06 Results - Laboratory Findings CBC and BMP: 01/09/17 07:44 01/09/17 07:44 Abnormal Lab Findings: Abnormal Labs 01/04/17 01/04/17 01/04/17 07:03 07:21 07:31 WBC 16.4 H RBC 2.48 L Hgb 6.2 L Hct 20.1 L MCV 81 L MCH 25 L MCHC 31 L RDW 19.7 H Lymph % (Auto) Eos % (Auto) Eos # Seg Neutrophils % Seg Neutrophils # PT 18.1 H INR 1.42 H APTT 59.9 H POC ABG pH POC ABG pCO2 POC ABG pO2 Sodium Potassium Chloride Carbon Dioxide BUN Glucose POC Glucose 210 H Hemoglobin A1c Calcium Phosphorus Magnesium Total Creatine Kinase C-Reactive Protein Urine WBC (Auto) Crossmatch 01/04/17 01/04/17 01/04/17 07:31 09:03 12:01 WBC RBC Hgb 6.1 L Hct 19.4 L* MCV MCH MCHC RDW Lymph % (Auto) Eos % (Auto) Eos # Seg Neutrophils % Seg Neutrophils # PT INR APTT POC ABG pH POC ABG pCO2 POC ABG pO2 Sodium 148 H Potassium Chloride Carbon Dioxide 33 H BUN 80 H Glucose 182 H POC Glucose Hemoglobin A1c Calcium Phosphorus Magnesium 2.60 H Total Creatine Kinase 26 L C-Reactive Protein Urine WBC (Auto) Crossmatch See Detail 01/04/17 01/04/17 01/04/17 12:01 16:50 22:46 WBC RBC Hgb Hct MCV MCH MCHC RDW Lymph % (Auto) Eos % (Auto) Eos # Seg Neutrophils % Seg Neutrophils # PT INR APTT POC ABG pH POC ABG pCO2 POC ABG pO2 Sodium Potassium Chloride Carbon Dioxide BUN Glucose POC Glucose 217 H 115 H Hemoglobin A1c 6.8 H Calcium Phosphorus Magnesium Total Creatine Kinase C-Reactive Protein Urine WBC (Auto) Crossmatch 01/04/17 01/05/17 01/05/17 Unknown 03:50 04:46 WBC 15.6 H RBC 3.10 L Hgb 8.1 L Hct 24.8 L MCV 80 L MCH 26 L MCHC RDW 19.1 H Lymph % (Auto) 11.4 L Eos % (Auto) Eos # Seg Neutrophils % 82.7 H Seg Neutrophils # 12.9 H PT INR APTT POC ABG pH POC ABG pCO2 POC ABG pO2 Sodium Potassium Chloride Carbon Dioxide BUN Glucose POC Glucose 140 H Hemoglobin A1c Calcium Phosphorus Magnesium Total Creatine Kinase C-Reactive Protein Urine WBC (Auto) > 182.0 H Crossmatch 01/05/17 01/05/17 01/05/17 04:46 06:21 09:25 WBC RBC Hgb 8.2 L Hct 26.1 L MCV MCH MCHC RDW Lymph % (Auto) Eos % (Auto) Eos # Seg Neutrophils % Seg Neutrophils # PT INR APTT POC ABG pH POC ABG pCO2 POC ABG pO2 Sodium 151 H Potassium Chloride 107.6 H Carbon Dioxide BUN 61 H Glucose 144 H POC Glucose 154 H Hemoglobin A1c Calcium Phosphorus Magnesium Total Creatine Kinase C-Reactive Protein Urine WBC (Auto) Crossmatch 01/05/17 01/05/17 01/05/17 12:05 14:48 17:00 WBC RBC Hgb 8.0 L Hct 25.2 L MCV MCH MCHC RDW Lymph % (Auto) Eos % (Auto) Eos # Seg Neutrophils % Seg Neutrophils # PT INR APTT POC ABG pH POC ABG pCO2 POC ABG pO2 Sodium Potassium Chloride Carbon Dioxide BUN Glucose POC Glucose 122 H 190 H Hemoglobin A1c Calcium Phosphorus Magnesium Total Creatine Kinase C-Reactive Protein Urine WBC (Auto) Crossmatch 01/05/17 01/05/17 01/06/17 20:38 21:36 02:51 WBC RBC Hgb 7.9 L Hct 25.4 L MCV MCH MCHC RDW Lymph % (Auto) Eos % (Auto) Eos # Seg Neutrophils % Seg Neutrophils # PT INR APTT POC ABG pH POC ABG pCO2 POC ABG pO2 Sodium Potassium Chloride Carbon Dioxide BUN Glucose POC Glucose 109 H 144 H Hemoglobin A1c Calcium Phosphorus Magnesium Total Creatine Kinase C-Reactive Protein Urine WBC (Auto) Crossmatch 01/06/17 01/06/17 01/06/17 03:11 03:11 03:38 WBC 18.0 H RBC 3.26 L Hgb 8.4 L Hct 26.8 L MCV 82 L MCH 26 L MCHC RDW 19.4 H Lymph % (Auto) 7.7 L Eos % (Auto) Eos # Seg Neutrophils % 87.8 H Seg Neutrophils # 15.8 H PT INR APTT POC ABG pH 7.575 H POC ABG pCO2 26.5 L POC ABG pO2 55 L Sodium 159 H D Potassium 3.4 L Chloride 116.6 H Carbon Dioxide BUN 51 H Glucose 145 H POC Glucose Hemoglobin A1c Calcium Phosphorus Magnesium Total Creatine Kinase C-Reactive Protein Urine WBC (Auto) Crossmatch 01/06/17 01/06/17 01/06/17 05:15 11:44 15:24 WBC RBC Hgb Hct MCV MCH MCHC RDW Lymph % (Auto) Eos % (Auto) Eos # Seg Neutrophils % Seg Neutrophils # PT INR APTT POC ABG pH 7.557 H POC ABG pCO2 28.0 L POC ABG pO2 66 L Sodium Potassium Chloride Carbon Dioxide BUN Glucose POC Glucose 157 H 210 H Hemoglobin A1c Calcium Phosphorus Magnesium Total Creatine Kinase C-Reactive Protein Urine WBC (Auto) Crossmatch 01/06/17 01/06/17 01/07/17 20:37 22:52 06:47 WBC 19.3 H RBC 2.99 L Hgb 7.8 L Hct 24.8 L MCV 83 L MCH 26 L MCHC RDW 19.9 H Lymph % (Auto) 7.7 L Eos % (Auto) Eos # Seg Neutrophils % 87.7 H Seg Neutrophils # 16.9 H PT INR APTT POC ABG pH POC ABG pCO2 POC ABG pO2 Sodium Potassium Chloride Carbon Dioxide BUN Glucose POC Glucose 197 H Hemoglobin A1c Calcium Phosphorus Magnesium Total Creatine Kinase C-Reactive Protein 19.70 H Urine WBC (Auto) Crossmatch 01/07/17 01/07/17 01/07/17 06:47 06:50 11:24 WBC RBC Hgb Hct MCV MCH MCHC RDW Lymph % (Auto) Eos % (Auto) Eos # Seg Neutrophils % Seg Neutrophils # PT INR APTT POC ABG pH POC ABG pCO2 POC ABG pO2 Sodium 165 H* Potassium 3.0 L Chloride 125.9 H Carbon Dioxide BUN 47 H Glucose 169 H POC Glucose 184 H 141 H Hemoglobin A1c Calcium 8.0 L Phosphorus Magnesium Total Creatine Kinase C-Reactive Protein Urine WBC (Auto) Crossmatch 01/07/17 01/08/17 01/08/17 23:30 05:32 05:34 WBC 17.8 H RBC 3.14 L Hgb 8.2 L Hct 26.2 L MCV MCH 26 L MCHC 31 L RDW 20.2 H Lymph % (Auto) 7.8 L Eos % (Auto) 5.0 H Eos # 0.9 H Seg Neutrophils % 84.2 H Seg Neutrophils # 15.0 H PT INR APTT POC ABG pH POC ABG pCO2 POC ABG pO2 Sodium Potassium Chloride Carbon Dioxide BUN Glucose POC Glucose 205 H 133 H Hemoglobin A1c Calcium Phosphorus Magnesium Total Creatine Kinase C-Reactive Protein Urine WBC (Auto) Crossmatch 01/08/17 01/08/17 01/08/17 05:34 11:34 17:24 WBC RBC Hgb Hct MCV MCH MCHC RDW Lymph % (Auto) Eos % (Auto) Eos # Seg Neutrophils % Seg Neutrophils # PT INR APTT POC ABG pH POC ABG pCO2 POC ABG pO2 Sodium 152 H D Potassium 3.1 L Chloride 113.2 H Carbon Dioxide BUN 46 H Glucose 158 H POC Glucose 243 H 107 H Hemoglobin A1c Calcium 7.8 L Phosphorus 1.70 L Magnesium Total Creatine Kinase C-Reactive Protein Urine WBC (Auto) Crossmatch 01/09/17 01/09/17 01/09/17 00:56 06:02 07:44 WBC 15.3 H RBC 2.87 L Hgb 7.2 L Hct 23.5 L MCV 82 L MCH 25 L MCHC 31 L RDW 20.6 H Lymph % (Auto) 8.5 L Eos % (Auto) 6.0 H Eos # 0.9 H Seg Neutrophils % 82.6 H Seg Neutrophils # 12.6 H PT INR APTT POC ABG pH POC ABG pCO2 POC ABG pO2 Sodium Potassium Chloride Carbon Dioxide BUN Glucose POC Glucose 177 H 150 H Hemoglobin A1c Calcium Phosphorus Magnesium Total Creatine Kinase C-Reactive Protein Urine WBC (Auto) Crossmatch 01/09/17 07:44 WBC RBC Hgb Hct MCV MCH MCHC RDW Lymph % (Auto) Eos % (Auto) Eos # Seg Neutrophils % Seg Neutrophils # PT INR APTT POC ABG pH POC ABG pCO2 POC ABG pO2 Sodium 146 H Potassium 3.5 L Chloride 108.7 H Carbon Dioxide BUN 36 H Glucose 140 H POC Glucose Hemoglobin A1c Calcium 7.6 L Phosphorus Magnesium Total Creatine Kinase C-Reactive Protein Urine WBC (Auto) Crossmatch
[2017-01-09] MEDS: LOPRESSOR FEEDTUBE SCH ×2 (10:37→23:14)
--- NOTE | 2017-01-09 11:15 | Progress Note ---
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 Per neurology - "I do not recommend anticoagulation as risk outweights potential benefit." Will follow recommendations. Nothing further to add from cardiac perspective at this time. Will see on as needed basis. The patient has been seen in conjunction with Dr. JORDAN Dao who agrees with the assessment and plan of care. Subjective Date of service: 01/09/17 Principal diagnosis: chronic AFib; h/o ICH; sepsis; anemia Interval history: resting in bed, nonverbal. NAD. Objective Last Vital Signs Temp 99.6 F 01/09/17 08:10 Pulse 96 H 01/09/17 08:55 Resp 16 01/09/17 08:55 BP 114/61 01/09/17 08:10 Pulse Ox 100 01/09/17 08:10 - Physical Examination General: No Apparent Distress HEENT: Positive: Normocephaly Neck: Positive: neck supple, Carotid Upstroke. Negative: JVD/HJR, Bruit (2+) Cardiac: Positive: irregularly irregular Lungs: Positive: Decreased Breath Sounds Neuro: Positive: Other (nonverbal apparent tremulousness of upper extremities) Abdomen: Positive: Soft. Negative: Tender Skin: Negative: Rash Musculoskeletal: other (no joint swelling) Extremities: Absent: edema (upper extremities pulses intact pedal pulses diminished) - Labs and Meds CBC 01/09/17 Range/Units 07:44 WBC 15.3 H (4.5-11.0) K/mm3 RBC 2.87 L (3.65-5.03) M/mm3 Hgb 7.2 L (11.8-15.2) gm/dl Hct 23.5 L (35.5-45.6) % Plt Count 175 (140-440) K/mm3 Lymph # 1.3 (1.2-5.4) K/mm3 [place] # 0.4 (0.0-0.8) K/mm3 Eos # 0.9 H (0.0-0.4) K/mm3 Baso # 0.0 (0.0-0.1) K/mm3 Comprehensive Metabolic Panel 01/09/17 Range/Units 07:44 Sodium 146 H (137-145) mmol/L Potassium 3.5 L (3.6-5.0) mmol/L Chloride 108.7 H (98-107) mmol/L Carbon Dioxide 23 (22-30) mmol/L BUN 36 H (9-20) mg/dL Creatinine 0.9 (0.8-1.5) mg/dL Glucose 140 H (75-100) mg/dL Calcium 7.6 L (8.4-10.2) mg/dL
--- NOTE | 2017-01-09 13:17 | Progress Note ---
Assessment and Plan Assessment: 1) Sepsis: still low grade fever. [id number] +/- pneumonia. CRP=19 2) Complicated UTI: with obstructive uropathy - CT showed left hydro and prox hydro ureter. Urine cx + ESBL Kleb 3) Pneumonia: CT showed bilateral infiltrates with pulmonary emphysematous changes 4) History of ICH s/p craniotomy and VPS 5) Bioprostetic valves and A fib on anticoagulation 6) Stage II sacral - not infected 7) Anemia - severe 8) Penicillin/vanco allergies Plan: -continue meropenem -monitor fever -follow-up respiratory culture -wound care for sacral dec -contact isolation -poor prognosis Thank you Dr Meade for your consultation, will follow up with you. Shagufta Verdugo MD Infectious Diseases Specialist [facility] [phone] Subjective Date of service: 01/09/17 Principal diagnosis: chronic AFib; h/o ICH; sepsis; anemia Interval history: Remains non verbal, but more alert, still fever tmax 100.4 Microbiology: Blood cultures: 01/05 ngtd Urine cultures: 01/04 ESBL Kleb Tracheal asp: pending Current Antimicrobials: meropenem 01/08 Previous Antimicrobials: aztreonam Levaquin Objective - Exam Narrative Exam: General appearance: more alert non verbal Eyes: anicteric sclerae, moist conjunctivae HENT: Atraumatic; oropharynx limited Neck: Trachea with thick green secretion Lungs: erika rhonchi CV: rrr Abdomen: Soft, TTP diffusely + PEG Extremities: contracted Skin: Normal temperature, turgor and texture; no rash, ulcers or subcutaneous nodules Psych: non verbal Neuro: non verbal no Moving all extermities Lines: No CVL / PICC - Constitutional Vitals: Vital Signs Temp Pulse Resp BP Pulse Ox 101.0 F H 48 L 32 H 109/59 100 01/09/17 12:07 01/09/17 12:07 01/09/17 12:07 01/09/17 12:07 01/09/17 12:07 Temperature -Last 24 Hours Temperature 101.0 F Temperature 99.6 F Temperature 99.6 F Temperature 100.4 F Temperature 99.5 F Temperature 99.0 F - Labs CBC & Chem 7: 01/09/17 07:44 01/09/17 07:44 Labs: Abnormal lab results 01/08/17 01/09/17 01/09/17 Range/Units 17:24 00:56 06:02 WBC (4.5-11.0) K/mm3 RBC (3.65-5.03) M/mm3 Hgb (11.8-15.2) gm/dl Hct (35.5-45.6) % MCV (84-94) fl MCH (28-32) pg MCHC (32-34) % RDW (13.2-15.2) % Lymph % (Auto) (13.4-35.0) % Eos % (Auto) (0.0-4.3) % Eos # (0.0-0.4) K/mm3 Seg Neutrophils % (40.0-70.0) % Seg Neutrophils # (1.8-7.7) K/mm3 Sodium (137-145) mmol/L Potassium (3.6-5.0) mmol/L Chloride (98-107) mmol/L BUN (9-20) mg/dL Glucose (75-100) mg/dL POC Glucose 107 H 177 H 150 H (70-105) Calcium (8.4-10.2) mg/dL 01/09/17 01/09/17 01/09/17 Range/Units 07:44 07:44 12:41 WBC 15.3 H (4.5-11.0) K/mm3 RBC 2.87 L (3.65-5.03) M/mm3 Hgb 7.2 L (11.8-15.2) gm/dl Hct 23.5 L (35.5-45.6) % MCV 82 L (84-94) fl MCH 25 L (28-32) pg MCHC 31 L (32-34) % RDW 20.6 H (13.2-15.2) % Lymph % (Auto) 8.5 L (13.4-35.0) % Eos % (Auto) 6.0 H (0.0-4.3) % Eos # 0.9 H (0.0-0.4) K/mm3 Seg Neutrophils % 82.6 H (40.0-70.0) % Seg Neutrophils # 12.6 H (1.8-7.7) K/mm3 Sodium 146 H (137-145) mmol/L Potassium 3.5 L (3.6-5.0) mmol/L Chloride 108.7 H (98-107) mmol/L BUN 36 H (9-20) mg/dL Glucose 140 H (75-100) mg/dL POC Glucose 139 H (70-105) Calcium 7.6 L (8.4-10.2) mg/dL
--- NOTE | 2017-01-09 14:32 | Progress Note ---
Assessment and Plan Imp: 1. UTI/Hydronephrosis 2. Sepsis 2/2 #1 3. Pulmonary edema, non-cardiogenic 2/2 above versus cardiogenic (see Echo) 4. A/C respiratory failure 5. S/p Trach 6. OP dysphagia, s/p PEG 7. Severe hypernatremia 8. Seizures 9. Obstructive uropathy Rec: 1. Has ESBL in urine; changed to Merrem per ID; issa in place 2. F/u Urology recs 3. Cont. D5W to correct Na 4. Pulm edema on CXR as per #3 above; F/u Echo 5. Patient with depressed LVEF, severe , and aortic regurgitation; recommend discussing results with cardiology 6. Aspiration precautions 7. SCDs 8. Clinically has improved No family present Subjective Date of service: 01/09/17 Principal diagnosis: chronic AFib; h/o ICH; sepsis; anemia Interval history: Nonverbal. Eyes close. Work of breathing better, on Tpiece 30%. Cannot give hx. Active Medications Acetaminophen (Tylenol) 650 mg FEEDTUBE Q4H PRN PRN Reason: Pain, Mild (1-3) Last Admin: 01/07/17 17:29 Dose: 650 mg Albuterol (Proventil) 2.5 mg IH Q4HRT PRN PRN Reason: Shortness Of Breath Albuterol/Ipratropium (Duoneb *Not For Prn Use*) 1 ampul IH Q6HRT [facility] Last Admin: 01/09/17 14:27 Dose: 1 ampul Amantadine HCl (Symmetrel) 150 mg FEEDTUBE BID [facility] Last Admin: 01/09/17 10:04 Dose: 150 mg Lipase/Protease/Amylase (Pancreaze Dr 10,500 Unit) 1 each FEEDTUBE PRN PRN PRN Reason: For Clogged Feeding Tube Budesonide (Pulmicort) 0.5 mg IH Q12HRT [facility] Last Admin: 01/09/17 08:06 Dose: 0.5 mg Dextrose (D50w (25gm) Syringe) 50 ml IV PRN PRN PRN Reason: Hypoglycemia Digoxin (Lanoxin) 0.25 mg FEEDTUBE DAILY [facility] Last Admin: 01/09/17 09:49 Dose: 0.25 mg Diltiazem HCl (Cardizem) 30 mg FEEDTUBE DAILY [facility] Last Admin: 01/09/17 09:49 Dose: 30 mg Ferrous Sulfate (Ferrous Sulfate) 450 mg PO QDAY [facility] Last Admin: 01/09/17 09:48 Dose: 450 mg Fluoxetine HCl (Prozac) 20 mg FEEDTUBE QDAY [facility] Last Admin: 01/09/17 09:49 Dose: 20 mg Guaifenesin (Robitussin) 100 mg FEEDTUBE BID PRN PRN Reason: Cough Last Admin: 01/06/17 23:21 Dose: 100 mg Hyoscyamine (Levsin Sl) 0.125 mg SL Q4H PRN PRN Reason: Spasms Dextrose (D5w) 1,000 mls @ 150 mls/hr IV DIRECT [facility] Last Admin: 01/09/17 02:52 Dose: 150 mls/hr Meropenem 1,000 mg/ Sodium (Chloride) 20 mls @ 20 mls/10 min IV Q8HR [facility] Last Admin: 01/09/17 06:08 Dose: 20 mls/10 min Insulin Aspart (Novolog) 0 units SUB-Q Q6HR GARO PRN Reason: Protocol Last Admin: 01/09/17 12:56 Dose: Not Given Levetiracetam (Keppra) 1,000 mg FEEDTUBE BID [facility] Last Admin: 01/09/17 09:50 Dose: 1,000 mg Lorazepam (Ativan) 1 mg FEEDTUBE BID PRN PRN Reason: Agitation Last Admin: 01/06/17 23:21 Dose: 1 mg Metoprolol Tartrate (Lopressor) 25 mg FEEDTUBE BID [facility] Last Admin: 01/09/17 10:37 Dose: Not Given Pantoprazole (Protonix) 40 mg FEEDTUBE DAILY [facility] Last Admin: 01/09/17 09:50 Dose: 40 mg Simple Syrup (Simple Syrup) 15 ml FEEDTUBE PRN PRN PRN Reason: Hypoglycemia Simple Syrup (Simple Syrup) 30 ml FEEDTUBE PRN PRN PRN Reason: Hypoglycemia Sodium Bicarbonate (Sodium Bicarbonate) 325 mg FEEDTUBE PRN PRN PRN Reason: For Clogged Feeding Tube Trazodone HCl (Desyrel) 25 mg PO QHS [facility] Last Admin: 01/08/17 23:06 Dose: 25 mg Objective Vital Signs - 12hr 01/09/17 01/09/1717 08:07 08:08 08:09 Temperature 99.6 F Pulse Rate 50 L Pulse Rate [ 94 H Anterior Bilateral Throughout] Respiratory 24 Rate Respiratory 20 Rate [Anterior Bilateral Throughout] Blood Pressure 114/61 Blood Pressure [Left] O2 Sat by Pulse 100 100 Oximetry O2 Sat by Pulse 98 Oximetry [ Assessment] 01/09/17 01/09/17 01/09/17 08:10 08:55 12:07 Temperature 99.6 F 101.0 F H Pulse Rate 51 L 48 L Pulse Rate [ 96 H Anterior Bilateral Throughout] Respiratory 24 32 H Rate Respiratory 16 Rate [Anterior Bilateral Throughout] Blood Pressure 109/59 Blood Pressure 114/61 [Left] O2 Sat by Pulse 100 100 Oximetry O2 Sat by Pulse Oximetry [ Assessment] 01/09/17 14:00 Temperature Pulse Rate Pulse Rate [ 94 H Anterior Bilateral Throughout] Respiratory Rate Respiratory 18 Rate [Anterior Bilateral Throughout] Blood Pressure Blood Pressure [Left] O2 Sat by Pulse Oximetry O2 Sat by Pulse Oximetry [ Assessment] Constitutional: no acute distress, other (eyes closed) Eyes: non-icteric ENT: oropharynx moist Neck: supple, other (trach midline) Effort: mildly labored Ascultation: Bilateral: other (coarse BS bilaterally) Cardiovascular: regular rate and rhythm (no mrg) Gastrointestinal: normoactive bowel sounds, soft, non-tender, non-distended Integumentary: normal Extremities: no cyanosis, no edema Neurologic: other (moves upper extremities, does not open eyes or follow commands) Psychiatric: other (unable to assess) CBC and BMP: 01/09/17 07:44 01/09/17 07:44 ABG, PT/INR, D-dimer: ABG POC ABG pH 7.557 (7.35-7.45) H 01/06/17 15:24 POC ABG pCO2 28.0 (35-45) L 01/06/17 15:24 POC ABG pO2 66 (80-105) L 01/06/17 15:24 POC ABG HCO3 24.9 01/06/17 15:24 POC ABG Total CO2 26 01/06/17 15:24 POC ABG O2 Sat 96 01/06/17 15:24 PT/INR, D-dimer PT 18.1 Sec. (12.2-14.9) H 01/04/17 07:31 INR 1.42 (0.87-1.13) H 01/04/17 07:31 Abnormal lab findings: Abnormal Labs 01/04/17 01/04/17 01/04/17 07:03 07:21 07:31 WBC 16.4 H RBC 2.48 L Hgb 6.2 L Hct 20.1 L MCV 81 L MCH 25 L MCHC 31 L RDW 19.7 H Lymph % (Auto) Eos % (Auto) Eos # Seg Neutrophils % Seg Neutrophils # PT 18.1 H INR 1.42 H APTT 59.9 H POC ABG pH POC ABG pCO2 POC ABG pO2 Sodium Potassium Chloride Carbon Dioxide BUN Glucose POC Glucose 210 H Hemoglobin A1c Calcium Phosphorus Magnesium Total Creatine Kinase C-Reactive Protein Urine WBC (Auto) Crossmatch 01/04/17 01/04/17 01/04/17 07:31 09:03 12:01 WBC RBC Hgb 6.1 L Hct 19.4 L* MCV MCH MCHC RDW Lymph % (Auto) Eos % (Auto) Eos # Seg Neutrophils % Seg Neutrophils # PT INR APTT POC ABG pH POC ABG pCO2 POC ABG pO2 Sodium 148 H Potassium Chloride Carbon Dioxide 33 H BUN 80 H Glucose 182 H POC Glucose Hemoglobin A1c Calcium Phosphorus Magnesium 2.60 H Total Creatine Kinase 26 L C-Reactive Protein Urine WBC (Auto) Crossmatch See Detail 01/04/17 01/04/17 01/04/17 12:01 16:50 22:46 WBC RBC Hgb Hct MCV MCH MCHC RDW Lymph % (Auto) Eos % (Auto) Eos # Seg Neutrophils % Seg Neutrophils # PT INR APTT POC ABG pH POC ABG pCO2 POC ABG pO2 Sodium Potassium Chloride Carbon Dioxide BUN Glucose POC Glucose 217 H 115 H Hemoglobin A1c 6.8 H Calcium Phosphorus Magnesium Total Creatine Kinase C-Reactive Protein Urine WBC (Auto) Crossmatch 01/04/17 01/05/17 01/05/17 Unknown 03:50 04:46 WBC 15.6 H RBC 3.10 L Hgb 8.1 L Hct 24.8 L MCV 80 L MCH 26 L MCHC RDW 19.1 H Lymph % (Auto) 11.4 L Eos % (Auto) Eos # Seg Neutrophils % 82.7 H Seg Neutrophils # 12.9 H PT INR APTT POC ABG pH POC ABG pCO2 POC ABG pO2 Sodium Potassium Chloride Carbon Dioxide BUN Glucose POC Glucose 140 H Hemoglobin A1c Calcium Phosphorus Magnesium Total Creatine Kinase C-Reactive Protein Urine WBC (Auto) > 182.0 H Crossmatch 01/05/17 01/05/17 01/05/17 04:46 06:21 09:25 WBC RBC Hgb 8.2 L Hct 26.1 L MCV MCH MCHC RDW Lymph % (Auto) Eos % (Auto) Eos # Seg Neutrophils % Seg Neutrophils # PT INR APTT POC ABG pH POC ABG pCO2 POC ABG pO2 Sodium 151 H Potassium Chloride 107.6 H Carbon Dioxide BUN 61 H Glucose 144 H POC Glucose 154 H Hemoglobin A1c Calcium Phosphorus Magnesium Total Creatine Kinase C-Reactive Protein Urine WBC (Auto) Crossmatch 01/05/17 01/05/17 01/05/17 12:05 14:48 17:00 WBC RBC Hgb 8.0 L Hct 25.2 L MCV MCH MCHC RDW Lymph % (Auto) Eos % (Auto) Eos # Seg Neutrophils % Seg Neutrophils # PT INR APTT POC ABG pH POC ABG pCO2 POC ABG pO2 Sodium Potassium Chloride Carbon Dioxide BUN Glucose POC Glucose 122 H 190 H Hemoglobin A1c Calcium Phosphorus Magnesium Total Creatine Kinase C-Reactive Protein Urine WBC (Auto) Crossmatch 01/05/17 01/05/17 01/06/17 20:38 21:36 02:51 WBC RBC Hgb 7.9 L Hct 25.4 L MCV MCH MCHC RDW Lymph % (Auto) Eos % (Auto) Eos # Seg Neutrophils % Seg Neutrophils # PT INR APTT POC ABG pH POC ABG pCO2 POC ABG pO2 Sodium Potassium Chloride Carbon Dioxide BUN Glucose POC Glucose 109 H 144 H Hemoglobin A1c Calcium Phosphorus Magnesium Total Creatine Kinase C-Reactive Protein Urine WBC (Auto) Crossmatch 01/06/17 01/06/17 01/06/17 03:11 03:11 03:38 WBC 18.0 H RBC 3.26 L Hgb 8.4 L Hct 26.8 L MCV 82 L MCH 26 L MCHC RDW 19.4 H Lymph % (Auto) 7.7 L Eos % (Auto) Eos # Seg Neutrophils % 87.8 H Seg Neutrophils # 15.8 H PT INR APTT POC ABG pH 7.575 H POC ABG pCO2 26.5 L POC ABG pO2 55 L Sodium 159 H D Potassium 3.4 L Chloride 116.6 H Carbon Dioxide BUN 51 H Glucose 145 H POC Glucose Hemoglobin A1c Calcium Phosphorus Magnesium Total Creatine Kinase C-Reactive Protein Urine WBC (Auto) Crossmatch 01/06/17 01/06/17 01/06/17 05:15 11:44 15:24 WBC RBC Hgb Hct MCV MCH MCHC RDW Lymph % (Auto) Eos % (Auto) Eos # Seg Neutrophils % Seg Neutrophils # PT INR APTT POC ABG pH 7.557 H POC ABG pCO2 28.0 L POC ABG pO2 66 L Sodium Potassium Chloride Carbon Dioxide BUN Glucose POC Glucose 157 H 210 H Hemoglobin A1c Calcium Phosphorus Magnesium Total Creatine Kinase C-Reactive Protein Urine WBC (Auto) Crossmatch 01/06/17 01/06/17 01/07/17 20:37 22:52 06:47 WBC 19.3 H RBC 2.99 L Hgb 7.8 L Hct 24.8 L MCV 83 L MCH 26 L MCHC RDW 19.9 H Lymph % (Auto) 7.7 L Eos % (Auto) Eos # Seg Neutrophils % 87.7 H Seg Neutrophils # 16.9 H PT INR APTT POC ABG pH POC ABG pCO2 POC ABG pO2 Sodium Potassium Chloride Carbon Dioxide BUN Glucose POC Glucose 197 H Hemoglobin A1c Calcium Phosphorus Magnesium Total Creatine Kinase C-Reactive Protein 19.70 H Urine WBC (Auto) Crossmatch 01/07/17 01/07/17 01/07/17 06:47 06:50 11:24 WBC RBC Hgb Hct MCV MCH MCHC RDW Lymph % (Auto) Eos % (Auto) Eos # Seg Neutrophils % Seg Neutrophils # PT INR APTT POC ABG pH POC ABG pCO2 POC ABG pO2 Sodium 165 H* Potassium 3.0 L Chloride 125.9 H Carbon Dioxide BUN 47 H Glucose 169 H POC Glucose 184 H 141 H Hemoglobin A1c Calcium 8.0 L Phosphorus Magnesium Total Creatine Kinase C-Reactive Protein Urine WBC (Auto) Crossmatch 01/07/17 01/08/17 01/08/17 23:30 05:32 05:34 WBC 17.8 H RBC 3.14 L Hgb 8.2 L Hct 26.2 L MCV MCH 26 L MCHC 31 L RDW 20.2 H Lymph % (Auto) 7.8 L Eos % (Auto) 5.0 H Eos # 0.9 H Seg Neutrophils % 84.2 H Seg Neutrophils # 15.0 H PT INR APTT POC ABG pH POC ABG pCO2 POC ABG pO2 Sodium Potassium Chloride Carbon Dioxide BUN Glucose POC Glucose 205 H 133 H Hemoglobin A1c Calcium Phosphorus Magnesium Total Creatine Kinase C-Reactive Protein Urine WBC (Auto) Crossmatch 01/08/17 01/08/17 01/08/17 05:34 11:34 17:24 WBC RBC Hgb Hct MCV MCH MCHC RDW Lymph % (Auto) Eos % (Auto) Eos # Seg Neutrophils % Seg Neutrophils # PT INR APTT POC ABG pH POC ABG pCO2 POC ABG pO2 Sodium 152 H D Potassium 3.1 L Chloride 113.2 H Carbon Dioxide BUN 46 H Glucose 158 H POC Glucose 243 H 107 H Hemoglobin A1c Calcium 7.8 L Phosphorus 1.70 L Magnesium Total Creatine Kinase C-Reactive Protein Urine WBC (Auto) Crossmatch 01/09/17 01/09/17 01/09/17 00:56 06:02 07:44 WBC 15.3 H RBC 2.87 L Hgb 7.2 L Hct 23.5 L MCV 82 L MCH 25 L MCHC 31 L RDW 20.6 H Lymph % (Auto) 8.5 L Eos % (Auto) 6.0 H Eos # 0.9 H Seg Neutrophils % 82.6 H Seg Neutrophils # 12.6 H PT INR APTT POC ABG pH POC ABG pCO2 POC ABG pO2 Sodium Potassium Chloride Carbon Dioxide BUN Glucose POC Glucose 177 H 150 H Hemoglobin A1c Calcium Phosphorus Magnesium Total Creatine Kinase C-Reactive Protein Urine WBC (Auto) Crossmatch 01/09/17 01/09/17 07:44 12:41 WBC RBC Hgb Hct MCV MCH MCHC RDW Lymph % (Auto) Eos % (Auto) Eos # Seg Neutrophils % Seg Neutrophils # PT INR APTT POC ABG pH POC ABG pCO2 POC ABG pO2 Sodium 146 H Potassium 3.5 L Chloride 108.7 H Carbon Dioxide BUN 36 H Glucose 140 H POC Glucose 139 H Hemoglobin A1c Calcium 7.6 L Phosphorus Magnesium Total Creatine Kinase C-Reactive Protein Urine WBC (Auto) Crossmatch Chest x-ray: report reviewed, image reviewed
[2017-01-09] MEDS: DESYREL PO SCH (23:15)
[2017-01-10] MEDS: NOVOLOG SUB-Q SCH ×4 (01:14→17:40)
[2017-01-10] MEDS: DUONEB *Not for PRN Use IH SCH ×4 (02:20→21:40)
[2017-01-10] MEDS: MERREM 1,000 MG in NACL 0.9% 20 ML IV SCH ×3 (06:31→23:43)
[2017-01-10] MEDS: PULMICORT IH SCH ×2 (08:28→21:40)
[2017-01-10] MEDS: LANOXIN FEEDTUBE SCH (11:43)
[2017-01-10] MEDS: CARDIZEM FEEDTUBE SCH (11:43)
[2017-01-10] MEDS: FERROUS SULFATE PO SCH (11:43)
[2017-01-10] MEDS: PROTONIX FEEDTUBE SCH (11:44)
[2017-01-10] MEDS: PROzac FEEDTUBE SCH (11:44)
[2017-01-10] MEDS: KEPPRA FEEDTUBE SCH ×2 (11:44→22:53)
[2017-01-10] MEDS: LOPRESSOR FEEDTUBE SCH ×2 (11:45→23:57)
[2017-01-10] MEDS: SYMMETREL FEEDTUBE SCH ×2 (11:46→22:54)
[2017-01-10] MEDS: TYLENOL FEEDTUBE PRN (14:47)
--- NOTE | 2017-01-10 14:53 | Progress Note ---
Assessment and Plan Imp: 1. UTI/Hydronephrosis 2. Sepsis 2/2 #1 3. Pulmonary edema, non-cardiogenic 2/2 above versus cardiogenic (see Echo) 4. A/C respiratory failure 5. S/p Trach 6. OP dysphagia, s/p PEG 7. Severe hypernatremia 8. Seizures 9. Obstructive uropathy Rec: 1. Has ESBL in urine; changed to Merrem per ID; issa in place 2. F/u Urology recs 3. Sodium not checked today but should be fully corrected; will reduce the D5W rate in light of Echo findings, and check labs again in AM 4. Pulm edema on CXR as per #3 above 5. Patient with depressed LVEF, severe , and aortic regurgitation; recommend discussing results with cardiology 6. Aspiration precautions 7. SCDs 8. Clinically has improved; long-term prognosis poor No family present Subjective Date of service: 01/10/17 Principal diagnosis: chronic AFib; h/o ICH; sepsis; anemia Interval history: Nonverbal. Eyes close. Work of breathing better, on Tpiece 30%. Cannot give hx. Still with periodic fevers. Has some donaldson secretions from trach. Active Medications Acetaminophen (Tylenol) 650 mg FEEDTUBE Q4H PRN PRN Reason: Pain, Mild (1-3) Last Admin: 01/10/17 14:47 Dose: 650 mg Albuterol (Proventil) 2.5 mg IH Q4HRT PRN PRN Reason: Shortness Of Breath Albuterol/Ipratropium (Duoneb *Not For Prn Use*) 1 ampul [facility] Q6HRT [facility] Last Admin: 01/10/17 08:28 Dose: 1 ampul Amantadine HCl (Symmetrel) 150 mg FEEDTUBE BID [facility] Last Admin: 01/10/17 11:46 Dose: 150 mg Lipase/Protease/Amylase (Pancreaze Dr 10,500 Unit) 1 each FEEDTUBE PRN PRN PRN Reason: For Clogged Feeding Tube Budesonide (Pulmicort) 0.5 mg IH Q12HRT [facility] Last Admin: 01/10/17 08:28 Dose: 0.5 mg Dextrose (D50w (25gm) Syringe) 50 ml IV PRN PRN PRN Reason: Hypoglycemia Digoxin (Lanoxin) 0.25 mg FEEDTUBE DAILY [facility] Last Admin: 01/10/17 11:43 Dose: 0.25 mg Diltiazem HCl (Cardizem) 30 mg FEEDTUBE DAILY [facility] Last Admin: 01/10/17 11:43 Dose: 30 mg Ferrous Sulfate (Ferrous Sulfate) 450 mg PO QDAY [facility] Last Admin: 01/10/17 11:43 Dose: 450 mg Fluoxetine HCl (Prozac) 20 mg FEEDTUBE QDAY [facility] Last Admin: 01/10/17 11:44 Dose: 20 mg Guaifenesin (Robitussin) 100 mg FEEDTUBE BID PRN PRN Reason: Cough Last Admin: 01/06/17 23:21 Dose: 100 mg Hyoscyamine (Levsin Sl) 0.125 mg SL Q4H PRN PRN Reason: Spasms Dextrose (D5w) 1,000 mls @ 75 mls/hr IV DIRECT [facility] Last Admin: 01/09/17 17:21 Dose: 150 mls/hr Meropenem 1,000 mg/ Sodium (Chloride) 20 mls @ 20 mls/10 min IV Q8HR [facility] Last Admin: 01/10/17 13:56 Dose: 20 mls/10 min Insulin Aspart (Novolog) 0 units SUB-Q Q6HR [facility] PRN Reason: Protocol Last Admin: 01/10/17 12:40 Dose: 3 units Levetiracetam (Keppra) 1,000 mg FEEDTUBE BID [facility] Last Admin: 01/10/17 11:44 Dose: 1,000 mg Lorazepam (Ativan) 1 mg FEEDTUBE BID PRN PRN Reason: Agitation Last Admin: 01/06/17 23:21 Dose: 1 mg Metoprolol Tartrate (Lopressor) 25 mg FEEDTUBE BID [facility] Last Admin: 01/10/17 11:45 Dose: 25 mg Pantoprazole (Protonix) 40 mg FEEDTUBE DAILY [facility] Last Admin: 01/10/17 11:44 Dose: 40 mg Simple Syrup (Simple Syrup) 15 ml FEEDTUBE PRN PRN PRN Reason: Hypoglycemia Simple Syrup (Simple Syrup) 30 ml FEEDTUBE PRN PRN PRN Reason: Hypoglycemia Sodium Bicarbonate (Sodium Bicarbonate) 325 mg FEEDTUBE PRN PRN PRN Reason: For Clogged Feeding Tube Trazodone HCl (Desyrel) 25 mg PO QHS [facility] Last Admin: 01/09/17 23:15 Dose: 25 mg Objective Vital Signs - 12hr 01/10/17 01/10/17 01/10/17 08:25 08:34 08:45 Temperature 100.3 F H Pulse Rate 84 Pulse Rate [ 60 62 Anterior Bilateral Throughout] Respiratory 28 H Rate Respiratory 22 20 Rate [Anterior Bilateral Throughout] Blood Pressure 109/63 O2 Sat by Pulse 100 Oximetry O2 Sat by Pulse Oximetry [ Assessment] 01/10/17 01/10/17 01/10/17 09:10 10:00 11:43 Temperature Pulse Rate 72 Pulse Rate [ Anterior Bilateral Throughout] Respiratory Rate Respiratory Rate [Anterior Bilateral Throughout] Blood Pressure 118/60 O2 Sat by Pulse 99 Oximetry O2 Sat by Pulse 98 Oximetry [ Assessment] 01/10/17 01/10/17 01/10/17 11:45 12:23 14:47 Temperature 101.6 F H Pulse Rate 47 L Pulse Rate [ Anterior Bilateral Throughout] Respiratory 28 H 22 Rate Respiratory Rate [Anterior Bilateral Throughout] Blood Pressure 118/60 123/59 O2 Sat by Pulse 100 Oximetry O2 Sat by Pulse Oximetry [ Assessment] Constitutional: no acute distress, other (eyes closed) Eyes: non-icteric ENT: oropharynx moist Neck: supple, other (trach midline) Effort: mildly labored Ascultation: Bilateral: other (coarse BS bilaterally) Cardiovascular: regular rate and rhythm (no mrg) Gastrointestinal: normoactive bowel sounds, soft, non-tender, non-distended Integumentary: normal Extremities: no cyanosis, no edema Neurologic: other (moves upper extremities, does not open eyes or follow commands) Psychiatric: other (unable to assess) CBC and BMP: 01/09/17 07:44 01/09/17 07:44 ABG, PT/INR, D-dimer: ABG POC ABG pH 7.557 (7.35-7.45) H 01/06/17 15:24 POC ABG pCO2 28.0 (35-45) L 01/06/17 15:24 POC ABG pO2 66 (80-105) L 01/06/17 15:24 POC ABG HCO3 24.9 01/06/17 15:24 POC ABG Total CO2 26 01/06/17 15:24 POC ABG O2 Sat 96 01/06/17 15:24 PT/INR, D-dimer PT 18.1 Sec. (12.2-14.9) H 01/04/17 07:31 INR 1.42 (0.87-1.13) H 01/04/17 07:31 Abnormal lab findings: Abnormal Labs 01/04/17 01/04/17 01/04/17 07:03 07:21 07:31 WBC 16.4 H RBC 2.48 L Hgb 6.2 L Hct 20.1 L MCV 81 L MCH 25 L MCHC 31 L RDW 19.7 H Lymph % (Auto) Eos % (Auto) Eos # Seg Neutrophils % Seg Neutrophils # PT 18.1 H INR 1.42 H APTT 59.9 H POC ABG pH POC ABG pCO2 POC ABG pO2 Sodium Potassium Chloride Carbon Dioxide BUN Glucose POC Glucose 210 H Hemoglobin A1c Calcium Phosphorus Magnesium Total Creatine Kinase C-Reactive Protein Urine WBC (Auto) Crossmatch 01/04/17 01/04/17 01/04/17 07:31 09:03 12:01 WBC RBC Hgb 6.1 L Hct 19.4 L* MCV MCH MCHC RDW Lymph % (Auto) Eos % (Auto) Eos # Seg Neutrophils % Seg Neutrophils # PT INR APTT POC ABG pH POC ABG pCO2 POC ABG pO2 Sodium 148 H Potassium Chloride Carbon Dioxide 33 H BUN 80 H Glucose 182 H POC Glucose Hemoglobin A1c Calcium Phosphorus Magnesium 2.60 H Total Creatine Kinase 26 L C-Reactive Protein Urine WBC (Auto) Crossmatch See Detail 01/04/17 01/04/17 01/04/17 12:01 16:50 22:46 WBC RBC Hgb Hct MCV MCH MCHC RDW Lymph % (Auto) Eos % (Auto) Eos # Seg Neutrophils % Seg Neutrophils # PT INR APTT POC ABG pH POC ABG pCO2 POC ABG pO2 Sodium Potassium Chloride Carbon Dioxide BUN Glucose POC Glucose 217 H 115 H Hemoglobin A1c 6.8 H Calcium Phosphorus Magnesium Total Creatine Kinase C-Reactive Protein Urine WBC (Auto) Crossmatch 01/04/17 01/05/17 01/05/17 Unknown 03:50 04:46 WBC 15.6 H RBC 3.10 L Hgb 8.1 L Hct 24.8 L MCV 80 L MCH 26 L MCHC RDW 19.1 H Lymph % (Auto) 11.4 L Eos % (Auto) Eos # Seg Neutrophils % 82.7 H Seg Neutrophils # 12.9 H PT INR APTT POC ABG pH POC ABG pCO2 POC ABG pO2 Sodium Potassium Chloride Carbon Dioxide BUN Glucose POC Glucose 140 H Hemoglobin A1c Calcium Phosphorus Magnesium Total Creatine Kinase C-Reactive Protein Urine WBC (Auto) > 182.0 H Crossmatch 01/05/17 01/05/17 01/05/17 04:46 06:21 09:25 WBC RBC Hgb 8.2 L Hct 26.1 L MCV MCH MCHC RDW Lymph % (Auto) Eos % (Auto) Eos # Seg Neutrophils % Seg Neutrophils # PT INR APTT POC ABG pH POC ABG pCO2 POC ABG pO2 Sodium 151 H Potassium Chloride 107.6 H Carbon Dioxide BUN 61 H Glucose 144 H POC Glucose 154 H Hemoglobin A1c Calcium Phosphorus Magnesium Total Creatine Kinase C-Reactive Protein Urine WBC (Auto) Crossmatch 01/05/17 01/05/17 01/05/17 12:05 14:48 17:00 WBC RBC Hgb 8.0 L Hct 25.2 L MCV MCH MCHC RDW Lymph % (Auto) Eos % (Auto) Eos # Seg Neutrophils % Seg Neutrophils # PT INR APTT POC ABG pH POC ABG pCO2 POC ABG pO2 Sodium Potassium Chloride Carbon Dioxide BUN Glucose POC Glucose 122 H 190 H Hemoglobin A1c Calcium Phosphorus Magnesium Total Creatine Kinase C-Reactive Protein Urine WBC (Auto) Crossmatch 01/05/17 01/05/17 01/06/17 20:38 21:36 02:51 WBC RBC Hgb 7.9 L Hct 25.4 L MCV MCH MCHC RDW Lymph % (Auto) Eos % (Auto) Eos # Seg Neutrophils % Seg Neutrophils # PT INR APTT POC ABG pH POC ABG pCO2 POC ABG pO2 Sodium Potassium Chloride Carbon Dioxide BUN Glucose POC Glucose 109 H 144 H Hemoglobin A1c Calcium Phosphorus Magnesium Total Creatine Kinase C-Reactive Protein Urine WBC (Auto) Crossmatch 01/06/17 01/06/17 01/06/17 03:11 03:11 03:38 WBC 18.0 H RBC 3.26 L Hgb 8.4 L Hct 26.8 L MCV 82 L MCH 26 L MCHC RDW 19.4 H Lymph % (Auto) 7.7 L Eos % (Auto) Eos # Seg Neutrophils % 87.8 H Seg Neutrophils # 15.8 H PT INR APTT POC ABG pH 7.575 H POC ABG pCO2 26.5 L POC ABG pO2 55 L Sodium 159 H D Potassium 3.4 L Chloride 116.6 H Carbon Dioxide BUN 51 H Glucose 145 H POC Glucose Hemoglobin A1c Calcium Phosphorus Magnesium Total Creatine Kinase C-Reactive Protein Urine WBC (Auto) Crossmatch 01/06/17 01/06/17 01/06/17 05:15 11:44 15:24 WBC RBC Hgb Hct MCV MCH MCHC RDW Lymph % (Auto) Eos % (Auto) Eos # Seg Neutrophils % Seg Neutrophils # PT INR APTT POC ABG pH 7.557 H POC ABG pCO2 28.0 L POC ABG pO2 66 L Sodium Potassium Chloride Carbon Dioxide BUN Glucose POC Glucose 157 H 210 H Hemoglobin A1c Calcium Phosphorus Magnesium Total Creatine Kinase C-Reactive Protein Urine WBC (Auto) Crossmatch 01/06/17 01/06/17 01/07/17 20:37 22:52 06:47 WBC 19.3 H RBC 2.99 L Hgb 7.8 L Hct 24.8 L MCV 83 L MCH 26 L MCHC RDW 19.9 H Lymph % (Auto) 7.7 L Eos % (Auto) Eos # Seg Neutrophils % 87.7 H Seg Neutrophils # 16.9 H PT INR APTT POC ABG pH POC ABG pCO2 POC ABG pO2 Sodium Potassium Chloride Carbon Dioxide BUN Glucose POC Glucose 197 H Hemoglobin A1c Calcium Phosphorus Magnesium Total Creatine Kinase C-Reactive Protein 19.70 H Urine WBC (Auto) Crossmatch 01/07/17 01/07/17 01/07/17 06:47 06:50 11:24 WBC RBC Hgb Hct MCV MCH MCHC RDW Lymph % (Auto) Eos % (Auto) Eos # Seg Neutrophils % Seg Neutrophils # PT INR APTT POC ABG pH POC ABG pCO2 POC ABG pO2 Sodium 165 H* Potassium 3.0 L Chloride 125.9 H Carbon Dioxide BUN 47 H Glucose 169 H POC Glucose 184 H 141 H Hemoglobin A1c Calcium 8.0 L Phosphorus Magnesium Total Creatine Kinase C-Reactive Protein Urine WBC (Auto) Crossmatch 01/07/17 01/08/17 01/08/17 23:30 05:32 05:34 WBC 17.8 H RBC 3.14 L Hgb 8.2 L Hct 26.2 L MCV MCH 26 L MCHC 31 L RDW 20.2 H Lymph % (Auto) 7.8 L Eos % (Auto) 5.0 H Eos # 0.9 H Seg Neutrophils % 84.2 H Seg Neutrophils # 15.0 H PT INR APTT POC ABG pH POC ABG pCO2 POC ABG pO2 Sodium Potassium Chloride Carbon Dioxide BUN Glucose POC Glucose 205 H 133 H Hemoglobin A1c Calcium Phosphorus Magnesium Total Creatine Kinase C-Reactive Protein Urine WBC (Auto) Crossmatch 01/08/17 01/08/17 01/08/17 05:34 11:34 17:24 WBC RBC Hgb Hct MCV MCH MCHC RDW Lymph % (Auto) Eos % (Auto) Eos # Seg Neutrophils % Seg Neutrophils # PT INR APTT POC ABG pH POC ABG pCO2 POC ABG pO2 Sodium 152 H D Potassium 3.1 L Chloride 113.2 H Carbon Dioxide BUN 46 H Glucose 158 H POC Glucose 243 H 107 H Hemoglobin A1c Calcium 7.8 L Phosphorus 1.70 L Magnesium Total Creatine Kinase C-Reactive Protein Urine WBC (Auto) Crossmatch 01/09/17 01/09/17 01/09/17 00:56 06:02 07:44 WBC 15.3 H RBC 2.87 L Hgb 7.2 L Hct 23.5 L MCV 82 L MCH 25 L MCHC 31 L RDW 20.6 H Lymph % (Auto) 8.5 L Eos % (Auto) 6.0 H Eos # 0.9 H Seg Neutrophils % 82.6 H Seg Neutrophils # 12.6 H PT INR APTT POC ABG pH POC ABG pCO2 POC ABG pO2 Sodium Potassium Chloride Carbon Dioxide BUN Glucose POC Glucose 177 H 150 H Hemoglobin A1c Calcium Phosphorus Magnesium Total Creatine Kinase C-Reactive Protein Urine WBC (Auto) Crossmatch 01/09/17 01/09/17 01/09/17 07:44 12:41 17:16 WBC RBC Hgb Hct MCV MCH MCHC RDW Lymph % (Auto) Eos % (Auto) Eos # Seg Neutrophils % Seg Neutrophils # PT INR APTT POC ABG pH POC ABG pCO2 POC ABG pO2 Sodium 146 H Potassium 3.5 L Chloride 108.7 H Carbon Dioxide BUN 36 H Glucose 140 H POC Glucose 139 H 121 H Hemoglobin A1c Calcium 7.6 L Phosphorus Magnesium Total Creatine Kinase C-Reactive Protein Urine WBC (Auto) Crossmatch 01/10/17 01/10/17 01/10/17 01:06 06:26 12:16 WBC RBC Hgb Hct MCV MCH MCHC RDW Lymph % (Auto) Eos % (Auto) Eos # Seg Neutrophils % Seg Neutrophils # PT INR APTT POC ABG pH POC ABG pCO2 POC ABG pO2 Sodium Potassium Chloride Carbon Dioxide BUN Glucose POC Glucose 168 H 176 H 150 H Hemoglobin A1c Calcium Phosphorus Magnesium Total Creatine Kinase C-Reactive Protein Urine WBC (Auto) Crossmatch Chest x-ray: report reviewed, image reviewed
--- NOTE | 2017-01-10 15:04 | Progress Note ---
Assessment and Plan Assessment: 1) Sepsis: still high grade fever. [id number] +/- pneumonia. CRP=19 2) Complicated UTI: with obstructive uropathy - CT showed left hydro and prox hydro ureter. Urine cx + ESBL Kleb 3) Pneumonia: CT showed bilateral infiltrates with pulmonary emphysematous changes 4) History of ICH s/p craniotomy and VPS 5) Bioprostetic valves and A fib on anticoagulation 6) Stage II sacral - not infected 7) Anemia - severe 8) Penicillin/vanco allergies Plan: -consider further renal imaging if obstruction he will need stent in view of persistent fever -continue meropenem -monitor fever -wound care -contact isolation -poor prognosis Thank you Dr Meade for your consultation, will follow up with you. Shagufta Verdugo MD Infectious Diseases Specialist [facility] [id number] [phone] [id number] [phone] Subjective Date of service: 01/10/17 Principal diagnosis: chronic AFib; h/o ICH; sepsis; anemia Interval history: Remains non verbal, but more alert, still fever tmax 101.6 Microbiology: Blood cultures: 01/05 ngtd Urine cultures: 01/04 ESBL Kleb Tracheal asp: pending Current Antimicrobials: meropenem 01/08 Previous Antimicrobials: aztreonam Levaquin Objective - Exam Narrative Exam: General appearance: more alert non verbal Eyes: anicteric sclerae, moist conjunctivae HENT: Atraumatic; oropharynx limited Neck: Trachea with green secretion Lungs: erika rhonchi CV: rrr Abdomen: Soft, TTP diffusely + PEG Extremities: contracted Skin: Normal temperature, turgor and texture; no rash, ulcers or subcutaneous nodules Psych: non verbal Neuro: non verbal no Moving all extermities Lines: No CVL / PICC - Constitutional Vitals: Vital Signs Temp Pulse Resp BP Pulse Ox 101.6 F H 47 L 22 123/59 100 01/10/17 12:23 01/10/17 12:23 01/10/17 14:47 01/10/17 12:23 01/10/17 12:23 Temperature -Last 24 Hours Temperature 101.6 F Temperature 100.3 F Temperature 98.8 F Temperature 98.9 F - Labs CBC & Chem 7: 01/09/17 07:44 01/09/17 07:44 Labs: Abnormal lab results 01/09/17 01/10/17 01/10/17 Range/Units 17:16 01:06 06:26 POC Glucose 121 H 168 H 176 H (70-105) 01/10/17 Range/Units 12:16 POC Glucose 150 H (70-105)
--- NOTE | 2017-01-10 16:24 | Progress Note ---
Assessment and Plan Assessment and plan: 61 year old -[place]i male with past medical history significant for intracerebral hemorrhage, s/p bioprostetic valves, A fib, A. fib on anticoagulation, hypertension, prediabetes, on PEG tube feeding was brought by EMS from [facility] because of complaints of his hemoglobin is low. Severe anemia - Patient's H&H on admission was 07/30 and transfused 2 units of blood, hemoglobin this morning was 8.2 - GI consulted and recommended PPI no colonoscopy at this time History of ICH - Neurology consult appreciated - With neurology recommendation about anticoagulation, I held Xarelto for now A. fib, status post 2 bioprosthetic valves - held xarelto - Cardiology consult appreciated Sacral decubitus ulcer - Wound care consulted Status post trach, respiratory distress - Duonebs, oxygen support - Pulmonary consult, appreciated Seizure disorder - Patient had seizures overnight - patient was put on keppra and PRN ativan - Neurology consulted Severe Sepsis - Levaquin and aztreonam stopped today and started on meropenem after ESBL positive urine culture - blood culture is negative so far Pneumonia - continue IV antibiotics Hypernatreamia, hyperchloremia - Increase free water - Showed some improvement from yesterday Bilateral Hydronephrosis - Urology evaluated him and put issa catheter Resume appropriate home medications DVT prophylaxis - Mechanical, because of bleeding Disposition -Continue inpatient care Prognosis - Guarded History Interval history: remains febrile, non responsive, tachypneic, no vomiting, no seizure Hospitalist Physical - Physical exam Narrative exam: Patient is on PEG and trach. The patient appeared critically ill, very thin Vital signs as documented. Head exam is unremarkable. No scleral icterus . Neck is without jugular venous distension, thyromegaly, or carotid bruits. Lungs are clear to auscultation. Cardiac exam reveals regular rate and Rhythm. First and second heart sounds normal. No murmurs, rubs or gallops. Abdominal exam reveals in place. Extremities are nonedematous and both femoral and pedal pulses are normal. 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 - Constitutional Vitals: Temp Pulse Resp BP Pulse Ox 100.9 F H 72 26 H 90/47 100 01/10/17 15:24 01/10/17 15:24 01/10/17 15:24 01/10/17 15:24 01/10/17 15:24 General appearance: Present: mild distress Results - Labs CBC & Chem 7: 01/11/17 08:51 01/11/17 08:51 Labs: Laboratory Last Values WBC 15.3 K/mm3 (4.5-11.0) H 01/09/17 07:44 RBC 2.87 M/mm3 (3.65-5.03) L 01/09/17 07:44 Hgb 7.2 gm/dl (11.8-15.2) L 01/09/17 07:44 Hct 23.5 % (35.5-45.6) L 01/09/17 07:44 MCV 82 fl (84-94) L 01/09/17 07:44 MCH 25 pg (28-32) L 01/09/17 07:44 MCHC 31 % (32-34) L 01/09/17 07:44 RDW 20.6 % (13.2-15.2) H 01/09/17 07:44 Plt Count 175 K/mm3 (140-440) 01/09/17 07:44 Lymph % (Auto) 8.5 % (13.4-35.0) L 01/09/17 07:44 Frontier % (Auto) 2.7 % (0.0-7.3) 01/09/17 07:44 Eos % (Auto) 6.0 % (0.0-4.3) H 01/09/17 07:44 Baso % (Auto) 0.2 % (0.0-1.8) 01/09/17 07:44 Lymph # 1.3 K/mm3 (1.2-5.4) 01/09/17 07:44 Frontier # 0.4 K/mm3 (0.0-0.8) 01/09/17 07:44 Eos # 0.9 K/mm3 (0.0-0.4) H 01/09/17 07:44 Baso # 0.0 K/mm3 (0.0-0.1) 01/09/17 07:44 Seg Neutrophils % 82.6 % (40.0-70.0) H 01/09/17 07:44 Seg Neutrophils # 12.6 K/mm3 (1.8-7.7) H 01/09/17 07:44 PT 18.1 Sec. (12.2-14.9) H 01/04/17 07:31 INR 1.42 (0.87-1.13) H 01/04/17 07:31 APTT 59.9 Sec. (24.2-36.6) H 01/04/17 07:31 POC ABG pH 7.557 (7.35-7.45) H 01/06/17 15:24 POC ABG pCO2 28.0 (35-45) L 01/06/17 15:24 POC ABG pO2 66 (80-105) L 01/06/17 15:24 POC ABG HCO3 24.9 01/06/17 15:24 POC ABG Total CO2 26 01/06/17 15:24 POC ABG O2 Sat 96 01/06/17 15:24 POC ABG Base Excess 3 01/06/17 15:24 FiO2 28 % 01/06/17 15:24 Sodium 146 mmol/L (137-145) H 01/09/17 07:44 Potassium 3.5 mmol/L (3.6-5.0) L 01/09/17 07:44 Chloride 108.7 mmol/L (98-107) H 01/09/17 07:44 Carbon Dioxide 23 mmol/L (22-30) 01/09/17 07:44 Anion Gap 18 mmol/L 01/09/17 07:44 BUN 36 mg/dL (9-20) H 01/09/17 07:44 Creatinine 0.9 mg/dL (0.8-1.5) 01/09/17 07:44 Estimated GFR > 60 ml/min 01/09/17 07:44 BUN/Creatinine Ratio 40 % 01/09/17 07:44 Glucose 140 mg/dL (75-100) H 01/09/17 07:44 POC Glucose 150 (70-105) H 01/10/17 12:16 Hemoglobin A1c 6.8 % (4-6) H 01/04/17 12:01 Lactic Acid 1.30 mmol/L (0.7-2.0) 01/04/17 07:21 Calcium 7.6 mg/dL (8.4-10.2) L 01/09/17 07:44 Phosphorus 1.70 mg/dL (2.5-4.5) L 01/08/17 05:34 Magnesium 2.10 mg/dL (1.7-2.3) 01/08/17 05:34 Total Creatine Kinase 26 units/L (55-170) L 01/04/17 07:31 C-Reactive Protein 19.70 mg/dL (0.00-1.30) H 01/06/17 20:37 Urine Color Yellow (Yellow) 01/04/17 Unknown Urine Turbidity Clear (Clear) 01/04/17 Unknown Urine pH 5.0 (5.0-7.0) 01/04/17 Unknown Ur Specific Clarence 1.014 (1.003-1.030) 01/04/17 Unknown Urine Protein 30 mg/dl mg/dL (Negative) 01/04/17 Unknown Urine Glucose (UA) Neg mg/dL (Negative) 01/04/17 Unknown Urine Ketones Neg mg/dL (Negative) 01/04/17 Unknown Urine Blood Sm (Negative) 01/04/17 Unknown Urine Nitrite Neg (Negative) 01/04/17 Unknown Ur Reducing Substances Not Reportable 01/04/17 Unknown Urine Bilirubin Neg (Negative) 01/04/17 Unknown Urine Ictotest Not Reportable 01/04/17 Unknown Urine Urobilinogen < 2.0 mg/dL (<2.0) 01/04/17 Unknown Ur Leukocyte Esterase Lg (Negative) 01/04/17 Unknown Urine WBC (Auto) > 182.0 /HPF (0.0-6.0) H 01/04/17 Unknown Urine RBC (Auto) 58.0 /HPF (0.0-6.0) 01/04/17 Unknown Urine Bacteria (Auto) 4+ /HPF (Negative) 01/04/17 Unknown Urine WBC Clumps 3+ /HPF 01/04/17 Unknown Urine Mucus Few /HPF 01/04/17 Unknown Urine Yeast (Budding) 1+ /HPF 01/04/17 Unknown Blood Type B POSITIVE 01/04/17 09:03 Antibody Screen Negative 01/04/17 09:03 Crossmatch See Detail 01/04/17 09:03
[2017-01-10] MEDS: D5W 1,000 ML IV SCH (17:49)
[2017-01-10] MEDS: DESYREL PO SCH (22:53)
[2017-01-11] MEDS: NOVOLOG SUB-Q SCH ×4 (01:18→18:21)
[2017-01-11] MEDS: DUONEB *Not for PRN Use IH SCH ×4 (02:48→20:41)
[2017-01-11] MEDS: D5W 1,000 ML IV SCH (07:56)
[2017-01-11 09:12] LABS: Basophils % (Auto) 0.3 % (0.0-1.8); Eosinophils % (Auto) 7.5 % (0.0-4.3); Hematocrit 23.9 % (35.5-45.6); Hemoglobin 7.6 gm/dl (11.8-15.2); Mean Corpuscular HGB Conc 32 % (32-34); Mean Corpuscular Hemoglobin 26 pg (28-32); Mean Corpuscular Volume 82 fl (84-94); Platelet Count 154 K/mm3 (140-440); Red Blood Count 2.92 M/mm3 (3.65-5.03); White Blood Count 12.3 K/mm3 (4.5-11.0)
[2017-01-11 09:13] LABS: Red Cell Distribution Width 21.1 % (13.2-15.2)
[2017-01-11 09:32] LABS: Anion Gap 17 mmol/L; BUN/Creatinine Ratio 40; Blood Urea Nitrogen 24 mg/dL (9-20); Calcium 7.8 mg/dL (8.4-10.2); Carbon Dioxide 23 mmol/L (22-30); Chloride 103.2 mmol/L (98-107); Glucose 138 mg/dL (75-100); Potassium 3.6 mmol/L (3.6-5.0); Sodium 140 mmol/L (137-145)
[2017-01-11] MEDS: PULMICORT IH SCH ×2 (11:57→20:41)
[2017-01-11] MEDS: FERROUS SULFATE PO SCH (12:34)
[2017-01-11] MEDS: PROzac FEEDTUBE SCH (12:35)
[2017-01-11] MEDS: LANOXIN FEEDTUBE SCH (12:35)
[2017-01-11] MEDS: CARDIZEM FEEDTUBE SCH (12:35)
[2017-01-11] MEDS: PROTONIX FEEDTUBE SCH (12:35)
[2017-01-11] MEDS: LOPRESSOR FEEDTUBE SCH (12:38)
--- NOTE | 2017-01-11 12:42 | Progress Note ---
Assessment and Plan Imp: 1. UTI/Hydronephrosis 2. Sepsis 2/2 #1 3. Pulmonary edema, non-cardiogenic 2/2 above versus cardiogenic (see Echo) 4. A/C respiratory failure 5. S/p Trach 6. OP dysphagia, s/p PEG 7. Severe hypernatremia 8. Seizures 9. Obstructive uropathy Rec: 1. Has ESBL in urine; changed to Merrem per ID; issa in place 2. F/u Urology recs 3. Cont. same IVFs 4. Pulm edema on CXR as per #3 above 5. Patient with depressed LVEF, severe , and aortic regurgitation; recommend discussing results with cardiology 6. Aspiration precautions 7. SCDs 8. Re: ongoing fevers, will try to get a better sputum culture/sample, and repeat CXR in AM 9. Long-term prognosis poor No family present Subjective Date of service: 01/11/17 Principal diagnosis: chronic AFib; h/o ICH; sepsis; anemia Interval history: Nonverbal. Eyes close. Work of breathing better, on Tpiece 30%. Cannot give hx. Still with periodic fevers. Has some donaldson secretions from trach. Active Medications Acetaminophen (Tylenol) 650 mg FEEDTUBE Q4H PRN PRN Reason: Pain, Mild (1-3) Last Admin: 01/10/17 14:47 Dose: 650 mg Albuterol (Proventil) 2.5 mg IH Q4HRT PRN PRN Reason: Shortness Of Breath Albuterol/Ipratropium (Duoneb *Not For Prn Use*) 1 ampul IH Q6HRT [facility] Last Admin: 01/11/17 11:56 Dose: 1 ampul Amantadine HCl (Symmetrel) 150 mg FEEDTUBE BID [facility] Last Admin: 01/10/17 22:54 Dose: 150 mg Lipase/Protease/Amylase (Pancreaze Dr 10,500 Unit) 1 each FEEDTUBE PRN PRN PRN Reason: For Clogged Feeding Tube Budesonide (Pulmicort) 0.5 mg IH Q12HRT [facility] Last Admin: 01/11/17 11:57 Dose: 0.5 mg Dextrose (D50w (25gm) Syringe) 50 ml IV PRN PRN PRN Reason: Hypoglycemia Digoxin (Lanoxin) 0.25 mg FEEDTUBE DAILY [facility] Last Admin: 01/11/17 12:35 Dose: 0.25 mg Diltiazem HCl (Cardizem) 30 mg FEEDTUBE DAILY [facility] Last Admin: 01/11/17 12:35 Dose: 30 mg Ferrous Sulfate (Ferrous Sulfate) 450 mg PO QDAY [facility] Last Admin: 01/11/17 12:34 Dose: 450 mg Fluoxetine HCl (Prozac) 20 mg FEEDTUBE QDAY [facility] Last Admin: 01/11/17 12:35 Dose: 20 mg Guaifenesin (Robitussin) 100 mg FEEDTUBE BID PRN PRN Reason: Cough Last Admin: 01/06/17 23:21 Dose: 100 mg Hyoscyamine (Levsin Sl) 0.125 mg SL Q4H PRN PRN Reason: Spasms Dextrose (D5w) 1,000 mls @ 75 mls/hr IV DIRECT [facility] Last Admin: 01/11/17 07:56 Dose: 150 mls/hr Meropenem 1,000 mg/ Sodium (Chloride) 20 mls @ 20 mls/10 min IV Q8HR [facility] Last Admin: 01/10/17 23:43 Dose: 20 mls/10 min Insulin Aspart (Novolog) 0 units SUB-Q Q6HR [facility] PRN Reason: Protocol Last Admin: 01/11/17 07:56 Dose: Not Given Levetiracetam (Keppra) 1,000 mg FEEDTUBE BID [facility] Last Admin: 01/10/17 22:53 Dose: 1,000 mg Lorazepam (Ativan) 1 mg FEEDTUBE BID PRN PRN Reason: Agitation Last Admin: 01/06/17 23:21 Dose: 1 mg Metoprolol Tartrate (Lopressor) 25 mg FEEDTUBE BID [facility] Last Admin: 01/11/17 12:38 Dose: Not Given Pantoprazole (Protonix) 40 mg FEEDTUBE DAILY [facility] Last Admin: 01/11/17 12:35 Dose: 40 mg Simple Syrup (Simple Syrup) 15 ml FEEDTUBE PRN PRN PRN Reason: Hypoglycemia Simple Syrup (Simple Syrup) 30 ml FEEDTUBE PRN PRN PRN Reason: Hypoglycemia Sodium Bicarbonate (Sodium Bicarbonate) 325 mg FEEDTUBE PRN PRN PRN Reason: For Clogged Feeding Tube Trazodone HCl (Desyrel) 25 mg PO QHS [facility] Last Admin: 01/10/17 22:53 Dose: 25 mg Objective Vital Signs - 12hr 01/11/17 01/11/17 01/11/17 01:15 02:48 02:58 Temperature Pulse Rate Pulse Rate [ 74 82 Anterior Bilateral Throughout] Respiratory Rate Respiratory 20 20 Rate [Anterior Bilateral Throughout] Blood Pressure O2 Sat by Pulse Oximetry O2 Sat by Pulse 100 Oximetry [ Assessment] 01/11/17 01/11/17 01/11/17 04:38 09:19 11:56 Temperature 100.8 F H 98.5 F Pulse Rate 78 Pulse Rate [ 79 Anterior Bilateral Throughout] Respiratory 21 18 Rate Respiratory 16 Rate [Anterior Bilateral Throughout] Blood Pressure 117/63 128/65 O2 Sat by Pulse 98 Oximetry O2 Sat by Pulse Oximetry [ Assessment] 01/11/17 01/11/17 01/11/17 11:58 12:00 12:11 Temperature Pulse Rate Pulse Rate [ 79 Anterior Bilateral Throughout] Respiratory Rate Respiratory 19 Rate [Anterior Bilateral Throughout] Blood Pressure O2 Sat by Pulse 100 Oximetry O2 Sat by Pulse 97 Oximetry [ Assessment] 01/11/17 12:38 Temperature Pulse Rate Pulse Rate [ Anterior Bilateral Throughout] Respiratory Rate Respiratory Rate [Anterior Bilateral Throughout] Blood Pressure 116/57 O2 Sat by Pulse Oximetry O2 Sat by Pulse Oximetry [ Assessment] Constitutional: no acute distress, other (eyes closed) Eyes: non-icteric ENT: oropharynx moist Neck: supple, other (trach midline) Effort: mildly labored Ascultation: Bilateral: other (coarse BS bilaterally) Cardiovascular: regular rate and rhythm (no mrg) Gastrointestinal: normoactive bowel sounds, soft, non-tender, non-distended Integumentary: normal Extremities: no cyanosis, no edema Neurologic: other (moves upper extremities, does not open eyes or follow commands) Psychiatric: other (unable to assess) CBC and BMP: 01/11/17 08:51 01/11/17 08:51 ABG, PT/INR, D-dimer: ABG POC ABG pH 7.557 (7.35-7.45) H 01/06/17 15:24 POC ABG pCO2 28.0 (35-45) L 01/06/17 15:24 POC ABG pO2 66 (80-105) L 01/06/17 15:24 POC ABG HCO3 24.9 01/06/17 15:24 POC ABG Total CO2 26 01/06/17 15:24 POC ABG O2 Sat 96 01/06/17 15:24 PT/INR, D-dimer PT 18.1 Sec. (12.2-14.9) H 01/04/17 07:31 INR 1.42 (0.87-1.13) H 01/04/17 07:31 Abnormal lab findings: Abnormal Labs 01/04/17 01/04/17 01/04/17 07:03 07:21 07:31 WBC 16.4 H RBC 2.48 L Hgb 6.2 L Hct 20.1 L MCV 81 L MCH 25 L MCHC 31 L RDW 19.7 H Lymph % (Auto) Eos % (Auto) Eos # Seg Neutrophils % Seg Neutrophils # PT 18.1 H INR 1.42 H APTT 59.9 H POC ABG pH POC ABG pCO2 POC ABG pO2 Sodium Potassium Chloride Carbon Dioxide BUN Creatinine Glucose POC Glucose 210 H Hemoglobin A1c Calcium Phosphorus Magnesium Total Creatine Kinase C-Reactive Protein Urine WBC (Auto) Crossmatch 01/04/17 01/04/17 01/04/17 07:31 09:03 12:01 WBC RBC Hgb 6.1 L Hct 19.4 L* MCV MCH MCHC RDW Lymph % (Auto) Eos % (Auto) Eos # Seg Neutrophils % Seg Neutrophils # PT INR APTT POC ABG pH POC ABG pCO2 POC ABG pO2 Sodium 148 H Potassium Chloride Carbon Dioxide 33 H BUN 80 H Creatinine Glucose 182 H POC Glucose Hemoglobin A1c Calcium Phosphorus Magnesium 2.60 H Total Creatine Kinase 26 L C-Reactive Protein Urine WBC (Auto) Crossmatch See Detail 01/04/17 01/04/17 01/04/17 12:01 16:50 22:46 WBC RBC Hgb Hct MCV MCH MCHC RDW Lymph % (Auto) Eos % (Auto) Eos # Seg Neutrophils % Seg Neutrophils # PT INR APTT POC ABG pH POC ABG pCO2 POC ABG pO2 Sodium Potassium Chloride Carbon Dioxide BUN Creatinine Glucose POC Glucose 217 H 115 H Hemoglobin A1c 6.8 H Calcium Phosphorus Magnesium Total Creatine Kinase C-Reactive Protein Urine WBC (Auto) Crossmatch 01/04/17 01/05/17 01/05/17 Unknown 03:50 04:46 WBC 15.6 H RBC 3.10 L Hgb 8.1 L Hct 24.8 L MCV 80 L MCH 26 L MCHC RDW 19.1 H Lymph % (Auto) 11.4 L Eos % (Auto) Eos # Seg Neutrophils % 82.7 H Seg Neutrophils # 12.9 H PT INR APTT POC ABG pH POC ABG pCO2 POC ABG pO2 Sodium Potassium Chloride Carbon Dioxide BUN Creatinine Glucose POC Glucose 140 H Hemoglobin A1c Calcium Phosphorus Magnesium Total Creatine Kinase C-Reactive Protein Urine WBC (Auto) > 182.0 H Crossmatch 01/05/17 01/05/17 01/05/17 04:46 06:21 09:25 WBC RBC Hgb 8.2 L Hct 26.1 L MCV MCH MCHC RDW Lymph % (Auto) Eos % (Auto) Eos # Seg Neutrophils % Seg Neutrophils # PT INR APTT POC ABG pH POC ABG pCO2 POC ABG pO2 Sodium 151 H Potassium Chloride 107.6 H Carbon Dioxide BUN 61 H Creatinine Glucose 144 H POC Glucose 154 H Hemoglobin A1c Calcium Phosphorus Magnesium Total Creatine Kinase C-Reactive Protein Urine WBC (Auto) Crossmatch 01/05/17 01/05/17 01/05/17 12:05 14:48 17:00 WBC RBC Hgb 8.0 L Hct 25.2 L MCV MCH MCHC RDW Lymph % (Auto) Eos % (Auto) Eos # Seg Neutrophils % Seg Neutrophils # PT INR APTT POC ABG pH POC ABG pCO2 POC ABG pO2 Sodium Potassium Chloride Carbon Dioxide BUN Creatinine Glucose POC Glucose 122 H 190 H Hemoglobin A1c Calcium Phosphorus Magnesium Total Creatine Kinase C-Reactive Protein Urine WBC (Auto) Crossmatch 01/05/17 01/05/17 01/06/17 20:38 21:36 02:51 WBC RBC Hgb 7.9 L Hct 25.4 L MCV MCH MCHC RDW Lymph % (Auto) Eos % (Auto) Eos # Seg Neutrophils % Seg Neutrophils # PT INR APTT POC ABG pH POC ABG pCO2 POC ABG pO2 Sodium Potassium Chloride Carbon Dioxide BUN Creatinine Glucose POC Glucose 109 H 144 H Hemoglobin A1c Calcium Phosphorus Magnesium Total Creatine Kinase C-Reactive Protein Urine WBC (Auto) Crossmatch 01/06/17 01/06/17 01/06/17 03:11 03:11 03:38 WBC 18.0 H RBC 3.26 L Hgb 8.4 L Hct 26.8 L MCV 82 L MCH 26 L MCHC RDW 19.4 H Lymph % (Auto) 7.7 L Eos % (Auto) Eos # Seg Neutrophils % 87.8 H Seg Neutrophils # 15.8 H PT INR APTT POC ABG pH 7.575 H POC ABG pCO2 26.5 L POC ABG pO2 55 L Sodium 159 H D Potassium 3.4 L Chloride 116.6 H Carbon Dioxide BUN 51 H Creatinine Glucose 145 H POC Glucose Hemoglobin A1c Calcium Phosphorus Magnesium Total Creatine Kinase C-Reactive Protein Urine WBC (Auto) Crossmatch 01/06/17 01/06/17 01/06/17 05:15 11:44 15:24 WBC RBC Hgb Hct MCV MCH MCHC RDW Lymph % (Auto) Eos % (Auto) Eos # Seg Neutrophils % Seg Neutrophils # PT INR APTT POC ABG pH 7.557 H POC ABG pCO2 28.0 L POC ABG pO2 66 L Sodium Potassium Chloride Carbon Dioxide BUN Creatinine Glucose POC Glucose 157 H 210 H Hemoglobin A1c Calcium Phosphorus Magnesium Total Creatine Kinase C-Reactive Protein Urine WBC (Auto) Crossmatch 01/06/17 01/06/17 01/07/17 20:37 22:52 06:47 WBC 19.3 H RBC 2.99 L Hgb 7.8 L Hct 24.8 L MCV 83 L MCH 26 L MCHC RDW 19.9 H Lymph % (Auto) 7.7 L Eos % (Auto) Eos # Seg Neutrophils % 87.7 H Seg Neutrophils # 16.9 H PT INR APTT POC ABG pH POC ABG pCO2 POC ABG pO2 Sodium Potassium Chloride Carbon Dioxide BUN Creatinine Glucose POC Glucose 197 H Hemoglobin A1c Calcium Phosphorus Magnesium Total Creatine Kinase C-Reactive Protein 19.70 H Urine WBC (Auto) Crossmatch 01/07/17 01/07/17 01/07/17 06:47 06:50 11:24 WBC RBC Hgb Hct MCV MCH MCHC RDW Lymph % (Auto) Eos % (Auto) Eos # Seg Neutrophils % Seg Neutrophils # PT INR APTT POC ABG pH POC ABG pCO2 POC ABG pO2 Sodium 165 H* Potassium 3.0 L Chloride 125.9 H Carbon Dioxide BUN 47 H Creatinine Glucose 169 H POC Glucose 184 H 141 H Hemoglobin A1c Calcium 8.0 L Phosphorus Magnesium Total Creatine Kinase C-Reactive Protein Urine WBC (Auto) Crossmatch 01/07/17 01/08/17 01/08/17 23:30 05:32 05:34 WBC 17.8 H RBC 3.14 L Hgb 8.2 L Hct 26.2 L MCV MCH 26 L MCHC 31 L RDW 20.2 H Lymph % (Auto) 7.8 L Eos % (Auto) 5.0 H Eos # 0.9 H Seg Neutrophils % 84.2 H Seg Neutrophils # 15.0 H PT INR APTT POC ABG pH POC ABG pCO2 POC ABG pO2 Sodium Potassium Chloride Carbon Dioxide BUN Creatinine Glucose POC Glucose 205 H 133 H Hemoglobin A1c Calcium Phosphorus Magnesium Total Creatine Kinase C-Reactive Protein Urine WBC (Auto) Crossmatch 01/08/17 01/08/17 01/08/17 05:34 11:34 17:24 WBC RBC Hgb Hct MCV MCH MCHC RDW Lymph % (Auto) Eos % (Auto) Eos # Seg Neutrophils % Seg Neutrophils # PT INR APTT POC ABG pH POC ABG pCO2 POC ABG pO2 Sodium 152 H D Potassium 3.1 L Chloride 113.2 H Carbon Dioxide BUN 46 H Creatinine Glucose 158 H POC Glucose 243 H 107 H Hemoglobin A1c Calcium 7.8 L Phosphorus 1.70 L Magnesium Total Creatine Kinase C-Reactive Protein Urine WBC (Auto) Crossmatch 01/09/17 01/09/17 01/09/17 00:56 06:02 07:44 WBC 15.3 H RBC 2.87 L Hgb 7.2 L Hct 23.5 L MCV 82 L MCH 25 L MCHC 31 L RDW 20.6 H Lymph % (Auto) 8.5 L Eos % (Auto) 6.0 H Eos # 0.9 H Seg Neutrophils % 82.6 H Seg Neutrophils # 12.6 H PT INR APTT POC ABG pH POC ABG pCO2 POC ABG pO2 Sodium Potassium Chloride Carbon Dioxide BUN Creatinine Glucose POC Glucose 177 H 150 H Hemoglobin A1c Calcium Phosphorus Magnesium Total Creatine Kinase C-Reactive Protein Urine WBC (Auto) Crossmatch 01/09/17 01/09/17 01/09/17 07:44 12:41 17:16 WBC RBC Hgb Hct MCV MCH MCHC RDW Lymph % (Auto) Eos % (Auto) Eos # Seg Neutrophils % Seg Neutrophils # PT INR APTT POC ABG pH POC ABG pCO2 POC ABG pO2 Sodium 146 H Potassium 3.5 L Chloride 108.7 H Carbon Dioxide BUN 36 H Creatinine Glucose 140 H POC Glucose 139 H 121 H Hemoglobin A1c Calcium 7.6 L Phosphorus Magnesium Total Creatine Kinase C-Reactive Protein Urine WBC (Auto) Crossmatch 01/10/17 01/10/17 01/10/17 01:06 06:26 12:16 WBC RBC Hgb Hct MCV MCH MCHC RDW Lymph % (Auto) Eos % (Auto) Eos # Seg Neutrophils % Seg Neutrophils # PT INR APTT POC ABG pH POC ABG pCO2 POC ABG pO2 Sodium Potassium Chloride Carbon Dioxide BUN Creatinine Glucose POC Glucose 168 H 176 H 150 H Hemoglobin A1c Calcium Phosphorus Magnesium Total Creatine Kinase C-Reactive Protein Urine WBC (Auto) Crossmatch 01/10/17 01/10/17 01/11/17 17:03 23:56 06:44 WBC RBC Hgb Hct MCV MCH MCHC RDW Lymph % (Auto) Eos % (Auto) Eos # Seg Neutrophils % Seg Neutrophils # PT INR APTT POC ABG pH POC ABG pCO2 POC ABG pO2 Sodium Potassium Chloride Carbon Dioxide BUN Creatinine Glucose POC Glucose 128 H 147 H 132 H Hemoglobin A1c Calcium Phosphorus Magnesium Total Creatine Kinase C-Reactive Protein Urine WBC (Auto) Crossmatch 01/11/17 01/11/17 08:51 08:51 WBC 12.3 H RBC 2.92 L Hgb 7.6 L Hct 23.9 L MCV 82 L MCH 26 L MCHC RDW 21.1 H Lymph % (Auto) 9.9 L Eos % (Auto) 7.5 H Eos # 0.9 H Seg Neutrophils % 79.1 H Seg Neutrophils # 9.7 H PT INR APTT POC ABG pH POC ABG pCO2 POC ABG pO2 Sodium Potassium Chloride Carbon Dioxide BUN 24 H Creatinine 0.6 L Glucose 138 H POC Glucose Hemoglobin A1c Calcium 7.8 L Phosphorus Magnesium Total Creatine Kinase C-Reactive Protein Urine WBC (Auto) Crossmatch Chest x-ray: report reviewed, image reviewed
[2017-01-11] MEDS: KEPPRA FEEDTUBE SCH (13:52)
[2017-01-11] MEDS: SYMMETREL FEEDTUBE SCH (13:53)
--- NOTE | 2017-01-11 15:09 | Progress Note ---
Assessment and Plan Assessment: 1) Sepsis: still high grade fever. Auddatnu-rurcmgzxzogevl-TBV +/- pneumonia. CRP=19 2) Complicated UTI: with obstructive uropathy - CT showed left hydro and prox hydro ureter. Urine cx + ESBL Kleb 3) Pneumonia: CT showed bilateral infiltrates with pulmonary emphysematous changes 4) History of ICH s/p craniotomy and VPS 5) Bioprostetic valves and A fib on anticoagulation 6) Stage II sacral - not infected 7) Anemia - severe 8) Penicillin/vanco allergies Plan: -obtain CT stone protocol to r/o obstruction in view of persistent fever -continue meropenem -monitor fever -wound care -contact isolation -poor prognosis I am covering the weekend Thank you Dr Meade for your consultation, will follow up with you. Shagufta Verdugo MD Infectious Diseases Specialist [facility], [place], [facility] [phone] O [phone] Subjective Date of service: 01/11/17 Principal diagnosis: chronic AFib; h/o ICH; sepsis; anemia Interval history: Remains non verbal, but more alert, still fever Microbiology: Blood cultures: 01/05 ngtd Urine cultures: 01/04 ESBL Kleb Tracheal asp: pending Current Antimicrobials: meropenem 01/08 Previous Antimicrobials: aztreonam Levaquin Objective - Exam Narrative Exam: General appearance: more alert non verbal Eyes: anicteric sclerae, moist conjunctivae HENT: Atraumatic; oropharynx limited Neck: Trachea with green secretion Lungs: erika rhonchi CV: rrr Abdomen: Soft, TTP diffusely + PEG Extremities: contracted Skin: Normal temperature, turgor and texture; no rash, ulcers or subcutaneous nodules Psych: non verbal Neuro: non verbal no Moving all extermities Lines: No CVL / PICC - Constitutional Vitals: Vital Signs Temp Pulse Resp BP Pulse Ox 98.5 F 79 19 116/57 97 01/11/17 09:19 01/11/17 12:11 01/11/17 12:11 01/11/17 12:38 01/11/17 12:00 Temperature -Last 24 Hours Temperature 98.5 F Temperature 100.8 F Temperature 100.2 F Temperature 100.9 F - Labs CBC & Chem 7: 01/11/17 08:51 01/11/17 08:51 Labs: Abnormal lab results 01/10/17 01/10/17 01/11/17 Range/Units 17:03 23:56 06:44 WBC (4.5-11.0) K/mm3 RBC (3.65-5.03) M/mm3 Hgb (11.8-15.2) gm/dl Hct (35.5-45.6) % MCV (84-94) fl MCH (28-32) pg RDW (13.2-15.2) % Lymph % (Auto) (13.4-35.0) % Eos % (Auto) (0.0-4.3) % Eos # (0.0-0.4) K/mm3 Seg Neutrophils % (40.0-70.0) % Seg Neutrophils # (1.8-7.7) K/mm3 BUN (9-20) mg/dL Creatinine (0.8-1.5) mg/dL Glucose (75-100) mg/dL POC Glucose 128 H 147 H 132 H (70-105) Calcium (8.4-10.2) mg/dL 01/11/17 01/11/17 01/11/17 Range/Units 08:51 08:51 12:50 WBC 12.3 H (4.5-11.0) K/mm3 RBC 2.92 L (3.65-5.03) M/mm3 Hgb 7.6 L (11.8-15.2) gm/dl Hct 23.9 L (35.5-45.6) % MCV 82 L (84-94) fl MCH 26 L (28-32) pg RDW 21.1 H (13.2-15.2) % Lymph % (Auto) 9.9 L (13.4-35.0) % Eos % (Auto) 7.5 H (0.0-4.3) % Eos # 0.9 H (0.0-0.4) K/mm3 Seg Neutrophils % 79.1 H (40.0-70.0) % Seg Neutrophils # 9.7 H (1.8-7.7) K/mm3 BUN 24 H (9-20) mg/dL Creatinine 0.6 L (0.8-1.5) mg/dL Glucose 138 H (75-100) mg/dL POC Glucose 144 H (70-105) Calcium 7.8 L (8.4-10.2) mg/dL
--- NOTE | 2017-01-11 15:19 | Discharge Summary ---
Providers - Providers Date of Admission: 01/04/17 10:33 Attending physician: SAMINA BARILLAS MD 01/04/17 09:01 Consult to Physician [CONS] Urgent Consulting Provider: AJIT OLIVO Reason For Exam: gi bleed Notified:: awaiting call back 01/04/17 11:26 Consult to Wound/ET Nurse [CONS] Routine Reason For Exam: wound eval 01/04/17 11:28 Consult to Dietitian/Nutrition [CONS] Routine Physician Instructions: Reason For Exam: Reason for Consult: Write/Manage Tube Feeding 01/04/17 11:33 Consult to Physician [CONS] Routine Consulting Provider: HUNTER FLORES Reason For Exam: respiratory distress on trach Place consult to:: Pulmonary Notified:: DR. AMBROSE Phone number called:: [phone] Was contact made?: Yes If yes, spoke with:: BLAYNE Time called:: 12:31 Comment:: DR.HOLMES Browning 01/04/17 14:30 Consult to Physician [CONS] Routine Consulting Provider: KRISTIN HAIDER Reason For Exam: hx of ICH Place consult to:: neurology/DR. HAIDER Notified:: ChataSTirso Phone number called:: [phone] Was contact made?: Yes If yes, spoke with:: ISMAEL Time called:: 15:14 01/06/17 09:18 Consult to Physician [CONS] Routine Consulting Provider: TAVO MERCADO Reason For Exam: sepsis Place consult to:: Tim Notified:: yes Time called:: 10:00 Comment:: I notified DR Dumont 01/07/17 13:23 Consult to Physician [CONS] Routine Consulting Provider: ERIC LIVINGSTON Reason For Exam: bilateral hydronephrosis Place consult to:: urology Notified:: Dr Dale Was contact made?: Yes Comment:: contacted by Dr Meade via [employer] Primary care physician: ENTERPRISE MANAGER Hospitalization Condition: Fair Hospital course: 61 year old -Dominican male with past medical history significant for intracerebral hemorrhage, s/p bioprostetic valves, A fib, A. fib on anticoagulation, hypertension, prediabetes, status post 3, on PEG tube feeding was brought by EMS from care home because of complaints of his hemoglobin is low. Should the patient was transfused for anemia, given history of intracranial hemorrhage, blood thinners were held. He received wound care for decubital ulcers. Patient did have respiratory distress which she received duo nebs oxygen supports and pulmonary consultation. He had episodes of seizures in the hospital, therefore has been on Keppra and when necessary Ativan he received neurology consultation. His found to have severe sepsis due to pneumonia, he was treated with broad-spectrum antibiotics, he continued to deteriorate. Given his poor functional status, fact that he's trach PEG nonverbal and noncommunicative and bedbound with multiple decubiti. His then elected to make him DO NOT RESUSCITATE and have him transferred to hospice. Patient was therefore transferred to hospice as per her request. Discharge diagnoses Severe anemia, anemia of chronic disease Metabolic encephalopathy Atrial fibrillation with hypercoagulable state Sacral decubitus ulcer/stage II/present on admission Status epilepticus Acute respiratory failure with hypoxia Severe sepsis Complete immobility due to frailty Hyponatremia/hypochloremia/dehydration Bilateral hydronephrosis After speaking with , given his poor prognosis, short life expectancy and poor quality of life. The decision was made to discontinue all antibiotic and all aggressive treatment and discharge him to Hospice. [facility] Time spent for discharge: 35 minutes Core Measure Documentation - Palliative Care Palliative Care/ Comfort Measures: Hospice Care - Core Measures Any of the following diagnoses?: none Exam - Physical Exam Narrative exam: Patient is on PEG and trach. The patient appeared critically ill, very thin Vital signs as documented. Head exam is unremarkable. No scleral icterus . Neck is without jugular venous distension, thyromegaly, or carotid bruits. Lungs are clear to auscultation. Cardiac exam reveals regular rate and Rhythm. First and second heart sounds normal. No murmurs, rubs or gallops. Abdominal exam reveals in place. Extremities are nonedematous and both femoral and pedal pulses are normal. UNDERWATER TRAPPER: Noncommunicative. - Constitutional Vitals: Temp Pulse Resp BP Pulse Ox 98.5 F 79 19 116/57 97 01/11/17 09:19 01/11/17 12:11 01/11/17 12:11 01/11/17 12:38 01/11/17 12:00 Plan Follow up with: PRIMARY CAREMD [Primary Care Provider] - 3-5 Days Prescriptions: Insulin Lispro [HumaLOG VIAL] 0 units SQ AC #1 vial LORazepam [Ativan] 1 mg FEEDTUBE BID PRN #7 tablet PRN Reason: Agitation
[2017-01-11] MEDS: MERREM 1,000 MG in NACL 0.9% 20 ML IV SCH (15:34)
[2017-01-11 16:41] VITALS: BP 98/58
--- NOTE | 2017-01-12 20:13 | Consultation ---
This EEG shows severe background slowing. Occasional sharp wave discharges bilaterally, especially noted posteriorly. IMPRESSION: Abnormal EEG with sharp wave discharges suggestive of epileptiform activity. ____ normal alpha activity present. JOB# [id number] BRITNI/NTS
== END 2017-01-11 19:30 | DRG 871 ==
LOC: ED 04:56 → 3A 10:33
PROVIDERS: ADMIT Internal Medicine; ATTEND Internal Medicine
PROC: 30233N1 Transfusion of Nonautologous Red Blood Cells into Peripheral Vein, Percutaneous Approach (ICD-10-PCS; principal; 2017-01-04)
PROC: 3E0234Z Introduction of Serum, Toxoid and Vaccine into Muscle, Percutaneous Approach (ICD-10-PCS; 2017-01-05)
PROC: 4A033R1 Measurement of Arterial Saturation, Peripheral, Percutaneous Approach (ICD-10-PCS; 2017-01-06)
DX: A41.9 Sepsis, unspecified organism (principal); J96.20 Acute and chronic respiratory failure, unspecified whether with hypoxia or hypercapnia; J18.9 Pneumonia, unspecified organism; K92.2 Gastrointestinal hemorrhage, unspecified; N39.0 Urinary tract infection, site not specified; E87.0 Hyperosmolality and hypernatremia; N13.30 Unspecified hydronephrosis; D64.9 Anemia, unspecified; I48.91 Unspecified atrial fibrillation; G40.909 Epilepsy, unspecified, not intractable, without status epilepticus; E87.8 Other disorders of electrolyte and fluid balance, not elsewhere classified; I10 Essential (primary) hypertension; E11.9 Type 2 diabetes mellitus without complications; R65.20 Severe sepsis without septic shock; K21.9 Gastro-esophageal reflux disease without esophagitis; F41.9 Anxiety disorder, unspecified; G20 Parkinson's disease; L89.152 Pressure ulcer of sacral region, stage 2; N13.9 Obstructive and reflux uropathy, unspecified; Z23 Encounter for immunization; Z79.01 Long term (current) use of anticoagulants; Z93.0 Tracheostomy status; Z79.82 Long term (current) use of aspirin; Z79.4 Long term (current) use of insulin; Z79.899 Other long term (current) drug therapy; Z88.0 Allergy status to penicillin; Z88.1 Allergy status to other antibiotic agents; Z91.040 Latex allergy status; Z95.2 Presence of prosthetic heart valve; I69.128 Other speech and language deficits following nontraumatic intracerebral hemorrhage; I69.198 Other sequelae of nontraumatic intracerebral hemorrhage
CPT/HCPCS: 36415; 36430; 36600; 70450; 71010; 71250; 76770; 80048; 81001; 82140; 82271; 82550; 82803; 82962; 83036; 83735; 84100; 85014; 85018; 85025; 85027; 85610; 85730; 86140; 86850; 86900; 86901; 86920; 87040; 87076; 87086; 87186; 87205; 90686; 93005; 93010; 93306; 94640; 94760; 95819; 96361; 96374; 96375; C9113; J1815; J1953; J1956; J2060; J2185; J7030; J7040; J7050; J7070; P9016